=== PATIENT | female | born 1945 | race Caucasian/White ===

== ENCOUNTER → 2016-11-20 | Outpatient (CLI) | payer BC ==
[~2016-11-20] MED LIST: ERGO1CAP41 PO; FERR1TAB23 PO; METH-848 PO; MULT-506 PO; PRT/40 PO; RIVA1TAB4 PO; TPRSR/50 PO
[2016-11-20 09:47] LABS: CALCIUM 8.5 mg/dl (8.5-10.1)
[2016-11-20 10:02] LABS: THYROID STIMULATING HORMONE 1.65 uIu/ml (0.300-4.500)
== END | disposition home or self-care (01) ==
LOC: C.LAB 07:30
PROVIDERS: ATTEND Internal Medicine Endocrinology, Diabetes & Metabolism
DX: E55.9 Vitamin D deficiency, unspecified (principal); E05.90 Thyrotoxicosis, unspecified without thyrotoxic crisis or storm; N25.81 Secondary hyperparathyroidism of renal origin

== ENCOUNTER → 2016-11-27 | Outpatient (CLI) | payer BC ==
--- NOTE | 2016-11-27 10:06 | DIAGNOSTIC IMAGING REPORT ---
THYROID ULTRASOUND HISTORY: E05.90 [id number] Graves [id number] Multiple thyroid COMPARISON: 11/22/2013 FINDINGS: Right lobe: Diffusely multinodular heterogeneous thyroid. Maximum dimension 8.0 cm. Multinodular nodules on the right measuring up to 3.3 cm. This is unchanged. Left lobe: Diffusely enlarged at 7.8 cm. This is only minimally increased in the prior exam. Multinodular appearance with nodules currently measuring no more than 4.4 cm. This is slightly diminished as compared to the prior exam. Multiple calcifications bilaterally in general similar in distribution. Isthmus: No nodules. IMPRESSION: Diffusely heterogeneous multinodular thyroid. No major change compared to the prior study of 2013 Electronically signed by: Ricky Lacy M.D. 11/27/2016 10:04 AM Dictated Date/Time: 11/27/2016 9:56 AM
== END | disposition home or self-care (01) ==
LOC: C.ULTR 09:11
PROVIDERS: ATTEND Internal Medicine Endocrinology, Diabetes & Metabolism
DX: E04.2 Nontoxic multinodular goiter (principal); E05.00 Thyrotoxicosis with diffuse goiter without thyrotoxic crisis or storm

== ENCOUNTER → 2016-12-12 | Outpatient (CLI) | payer BC ==
[2016-12-12 08:26] LABS: BASO % 0.9 %; BASO ABS # 0.03 K/uL (0-0.2); COMPLETE YES; EOS % 2.4 %; HEMATOCRIT 34.1 % (37-47); LYMPH % 35.1 %; LYMPH ABS # 1.17 K/uL (1.2-3.4); MEAN CELL VOLUME 89.7 fL (80-100); MEAN CORPUSCULAR HEMOGLOBIN 28.9 pg (25-34); MEAN CORPUSCULAR HGB CONC 32.3 g/dl (32-36); MONO % 8.7 %; NEUT % 52.9 %; PLATELET COUNT 209 K/uL (130-400); WHITE BLOOD COUNT 3.33 K/uL (4.8-10.8)
[2016-12-12 08:56] LABS: ALT/SGPT 17 U/L (12-78); BLOOD UREA NITROGEN 13 mg/dl (7-18); BUN/CREATININE RATIO 17.3 (10-20); CALCIUM 8.4 mg/dl (8.5-10.1); CARBON DIOXIDE 24 mmol/L (21-32); CHLORIDE 112 mmol/L (98-107); CHOLESTEROL 229 mg/dl (0-200); CREATININE 0.77 mg/dl (0.60-1.20); GLUCOSE 82 mg/dl (70-99); POTASSIUM 4.1 mmol/L (3.5-5.1); SODIUM 146 mmol/L (136-145)
[2016-12-12 09:01] LABS: ALB/GLOB RATIO 0.8 (0.9-2); ALKALINE PHOSPHATASE 75 U/L (45-117); AST/SGOT 16 U/L (15-37); CHOLESTEROL/HDL RATIO 3.5; FERRITIN 6.9 ng/ml (8.0-388.0); HDL CHOLESTEROL 65 mg/dl; LDL CHOLESTEROL CALCULATED 144 mg/dl; TRIGLYCERIDES 98 mg/dl (0-150); VERY LOW DENSITY LIPOPROT CALC 20 mg/dl
== END ==
LOC: C.LAB 07:51
PROVIDERS: ATTEND Nurse Practitioner Family
DX: E78.00 Pure hypercholesterolemia, unspecified (principal); D64.9 Anemia, unspecified

== ENCOUNTER 2016-12-16 13:44 | Emergency (ER) | payer BC ==
[~2016-12-16] VITALS: Ht 167.6 cm; Wt 85.6 kg
[~2016-12-16 13:44] MED LIST changes: -ERGO1CAP41 PO; -FERR1TAB23 PO; -MULT-506 PO; -RIVA1TAB4 PO
[2016-12-16 13:54] VITALS: TEMP 36.7; Ht 167.6 cm; Wt 85.6 kg
[2016-12-16] MEDS ORDERED: FERR1TAB23 PO (14:23)
[2016-12-16] MEDS ORDERED: ERGO1CAP41 PO (14:23)
[2016-12-16] MEDS ORDERED: MULT-506 PO (14:23)
[2016-12-16] MEDS ORDERED: RIVA1TAB4 PO (14:23)
[2016-12-16 14:38] VITALS: O2SAT 97
--- NOTE | 2016-12-16 14:39 | EMERGENCY ROOM VISIT NOTE ---
History First contact with patient: 14:27 Chief Complaint: CARDIAC ASSESSMENT Stated Complaint: PAIN IN LEFT ARM, GENTLE PRESSURE IN CHEST Nursing Triage Summary: pt c/o some pain in her chest and in her left shoulder that goes down her arm with some heaviness and tingling at times. sx have been there since yesterday "my arm does not feel my own History of Present Illness The patient is a 71 year old female who presents to the Emergency Room via private vehicle accompanied by with complaints of "pain in left arm, gentle pressure in chest". The patient states that yesterday she began with chest pain, that came in waves and lasted for a short period of time. She states that the chest pain was in the substernal region, of which she rated the pain as a 2/10. She states it felt like a dull touch of pain. She further describes it as a gentle pressure in the center of her chest. She states this has since subsided, and then shortly thereafter the left arm began to feel like it was "not herself". She states that there is little bit of pain in the left shoulder, and the rest of the arm has a sensation she notes that she did take her blood pressure and the left arm was different than the right by 10-15 points. She states that she is on Xarelto, for history of blood clots in the lungs and legs. She does have a history of hypertension as well. She denies any other weakness, speech troubles. She denies any additional heart troubles. Review of Systems A complete 10-point Review of Systems was discussed with the patient, with pertinent positives and negatives listed in the History of Present Illness. All remaining Review of Systems questions can be considered negative unless otherwise specified. Past Medical/Surgical History Medical Problems: (1) Bilateral pulmonary embolism (2) HTN (hypertension) Family History Patient reports no known family medical history. High blood pressure, cancer Social History Smoking Status: Never Smoker Alcohol Use: none Marital Status: Housing Status: lives with significant other Occupation Status: retired Current/Historical Medications Scheduled Ergocalciferol (Vitamin D 80111 Unit), 2 TAB PO WK Ferrous Sulfate (Iron), 1 TAB PO DAILY Metoprolol Succinate (Metoprolol Succinate ER), 50 MG PO BID Multivitamin (Multivitamin), 1 TAB PO DAILY Rivaroxaban (Xarelto), 20 MG PO DAILY Scheduled PRN Pantoprazole (Pantoprazole Sodium), 40 MG PO DAILY PRN for Acid Reflux Allergies Coded Allergies: No Known Allergies (Unverified , 12/16/16) Physical Exam Vital Signs Date Time Temp Pulse Resp B/P Pulse Ox O2 Delivery O2 Flow Rate FiO2 12/16/16 17:46 67 16 160/94 98 12/16/16 16:30 69 15 155/91 98 Room Air 12/16/16 15:22 78 17 148/84 98 Room Air 12/16/16 14:38 97 Room Air 12/16/16 14:19 76 12/16/16 14:06 100 Room Air 12/16/16 13:54 36.7 75 18 155/78 98 Room Air Physical Exam VITAL SIGNS - Vital signs and nursing notes were reviewed. Patient is afebrile , slightly hypertensive at 155/78, non-tachycardic and is saturating well on room air 98%. GENERAL -71-year-old female appearing her stated age who is in no acute distress. Communicates well with provider and answers questions appropriately. SKIN - Without rashes. No petechial rashes. HEAD - NC/AT. EYES - PERRL with EOMI bilaterally. Sclera anicteric. Palpebral conjunctiva pink and moist with no injection noted. EARS - No deformities of external structures noted on gross examination bilaterally. NOSE - Midline and without cyanosis. No epistaxis or purulent drainage noted. MOUTH/OROPHARYNX - Without perioral cyanosis. Buccal mucosa pink and moist and without leukoplakia. Tongue midline with equal elevation of palate bilaterally. No tonsillar hypertrophy, erythema, or exudates noted. Fair dentition noted. NECK - Neck with FROM. Supple to palpation. LUNGS - Chest wall symmetric without accessory muscle use, intercostals retractions, or central cyanosis. Normal vesicular breath sounds CTA B/L. No wheezes, rales, or rhonchi appreciated. CARDIAC - RRR with S1/S2. No murmur, rubs, or gallops appreciated. ABDOMEN - Abdominal contour without pulsations or visible masses. BS normoactive all four quadrants. No tenderness, palpable masses, hepatosplenomegaly, or ascites noted. EXTREMITIES - No clubbing or peripheral cyanosis. No pretibial edema present. + 5/5 strength noted in UE/LE bilaterally. NEUROLOGIC - Cranial nerves II through XII grossly intact. Sensory intact to light touch throughout. No neurologic deficits appreciated upon exam. PSYCH - A&Ox3 and cooperates fully with examiner. Pt is very pleasant and interacts well with examiner. Medical Decision & Procedures ER Provider Diagnostic Interpretation: CT SCAN OF THE BRAIN WITHOUT IV CONTRAST CLINICAL HISTORY: Left upper extremity paresthesias. Left arm pain. COMPARISON STUDY: No priors. TECHNIQUE: Unenhanced axial CT scan of the brain is performed from the vertex to the skull base. Automated dose control exposure was utilized. CT DOSE: 638.56 mGycm FINDINGS: Brain parenchyma: There is minimal patchy subcortical and periventricular microangiopathic disease. There is no hemorrhage, mass effect, or evidence of acute territorial ischemia by CT criteria. Mooney-white matter is preserved. No extra-axial fluid collection is seen. Ventricles, sulci, cisterns: Normal in configuration. Intracranial vasculature: There is atherosclerotic calcification of the cavernous carotid and vertebral arteries. Calvarium: Unremarkable. Sinuses and mastoids: There is subtotal opacification of the right maxillary antrum. The remaining visualized paranasal sinuses are clear. The mastoid air cells are well pneumatized. Orbits: The bony orbits are grossly intact. IMPRESSION: There is no hemorrhage, mass effect, or evidence of acute territorial ischemia by CT criteria. Electronically signed by: Rudy Howell M.D. 12/16/2016 4:35 PM Dictated Date/Time: 12/16/2016 4:32 PM CHEST ONE VIEW PORTABLE HISTORY: Left-sided chest pain. Left arm pain. COMPARISON: Chest 09/09/2016. FINDINGS: Small linear scarlike density within the left midlung zone, unchanged. The lungs are otherwise clear. No pleural effusions. No pneumothorax. Cardiac silhouette is stable in size. S-shaped scoliosis of the thoracolumbar spine. Stable 5 mm right upper lobe pulmonary nodule. IMPRESSION: No significant change compared to the prior study. No acute process. Electronically signed by: Ronn Marmolejo M.D. 12/16/2016 2:58 PM Dictated Date/Time: 12/16/2016 2:55 PM Laboratory Results 12/16/16 14:16 12/16/16 14:16 Test 12/16/16 14:16 12/16/16 16:39 Red Blood Count 3.78 M/uL (4.2-5.4) Mean Corpuscular Volume 87.3 fL (80-100) Mean Corpuscular Hemoglobin 28.3 pg (25-34) Mean Corpuscular Hemoglobin Concent 32.4 g/dl (32-36) RDW Standard Deviation 42.7 fL (36.4-46.3) RDW Coefficient of Variation 13.4 % (11.5-14.5) Mean Platelet Volume 8.7 fL (7.4-10.4) Prothrombin Time 13.2 SECONDS (9.0-12.0) Prothromb Time International Ratio 1.2 (0.9-1.1) Activated Partial Thromboplast Time 29.5 SECONDS (21.0-31.0) Partial Thromboplastin Ratio 1.1 Anion Gap 8.0 mmol/L (3-11) Est Creatinine Clear Calc Drug Dose 73.1 ml/min Estimated GFR () 87.2 Estimated GFR (Non- 75.2 BUN/Creatinine Ratio 18.1 (10-20) Calcium Level 8.3 mg/dl (8.5-10.1) Total Bilirubin 0.4 mg/dl (0.2-1) Aspartate Amino Transf (AST/SGOT) 15 U/L (15-37) Alanine Aminotransferase (ALT/SGPT) 20 U/L (12-78) Alkaline Phosphatase 74 U/L (45-117) Total Creatine Kinase 97 U/L (26-192) Creatine Kinase MB < 0.5 ng/ml (0.5-3.6) Creatine Kinase MB Ratio (0-3.0) Total Protein 6.7 gm/dl (6.4-8.2) Albumin 3.0 gm/dl (3.4-5.0) Globulin 3.7 gm/dl (2.5-4.0) Albumin/Globulin Ratio 0.8 (0.9-2) Bedside Troponin I 0.000 ng/ml (0-0.045) Medical Decision Patient was seen and evaluated as above. After obtaining a thorough history and physical examination, IV access was established and the above workup was performed. CBC reveals decreased white blood cell count at 4.75, and anemia with hemoglobin of 10.7. INR slightly high at 1.2, the patient is on Xarelto. Chloride sellae high at 110, calcium low at 8.3, troponin negative 2. Albumin low at 3. CT of the head was also ordered as the patient had an odd sensation of the left upper extremity and was on Xarelto. This was negative for acute process. Chest x-ray stable. Patient's EKG reveals normal sinus rhythm, rate of 69 bpm, nonspecific T-wave abnormality, and when compared to EKG of 2015, PVCs are no longer present. Given the negative troponin 2, no acute change on EKG, I do not suspect any immediate heart cause at this time. Because the patient is on Xarelto, I do not feel that a CT scan of the chest will be beneficial. The patient was offered admission, and declined stating she would like to go home. I do believe this is reasonable. She was educated upon today's findings, was educated upon the importance of follow-up, and is to follow-up with her radiologist and her family doctor soon as possible regarding today's visit. She was educated upon worrisome symptoms which to return, had questions answered prior to discharge, and was discharged home in good condition. In the evaluation and treatment of this patient the following differential diagnoses were entertained: AL, PE, costochondritis, GERD, stroke, among others. Impression Primary Impression: Left sided chest pain Additional Impression: Anemia Departure Information Dispostion Home / Self-Care Condition GOOD Referrals Koby Ambrocio III, CRNP (PCP) Patient Instructions [facility] Additional Instructions You were seen in the emergency department today for chest pain. Your heart chemicals here today, troponin were negative 2. Please follow-up with your signal mechanic and family doctor regarding today's visit. You have respectfully declined admission to the hospital. It is recommended you follow-up with your family doctor regarding today's visit as soon as possible. Please return to emergency department with any new/concerning symptoms. Problem Qualifiers
[2016-12-16 14:42] LABS: MEAN CELL VOLUME 87.3 fL (80-100); MEAN CORPUSCULAR HEMOGLOBIN 28.3 pg (25-34); MEAN CORPUSCULAR HGB CONC 32.4 g/dl (32-36); MEAN PLATELET VOLUME 8.7 fL (7.4-10.4); PLATELET COUNT 223 K/uL (130-400); RED BLOOD COUNT 3.78 M/uL (4.2-5.4); WHITE BLOOD COUNT 4.75 K/uL (4.8-10.8)
[2016-12-16 14:48] LABS: ALT/SGPT 20 U/L (12-78); BLOOD UREA NITROGEN 15 mg/dl (7-18); BUN/CREATININE RATIO 18.1 (10-20); CALCIUM 8.3 mg/dl (8.5-10.1); CARBON DIOXIDE 25 mmol/L (21-32); CHLORIDE 110 mmol/L (98-107); GLUCOSE 103 mg/dl (70-99); POTASSIUM 3.6 mmol/L (3.5-5.1); SODIUM 143 mmol/L (136-145)
[2016-12-16 14:50] LABS: INR 1.2 (0.9-1.1); PARTIAL THROMBOPLASTIN RATIO 1.1; PROTHROMBIN TIME (PATIENT) 13.2 SECONDS (9.0-12.0)
[2016-12-16 14:53] LABS: ALB/GLOB RATIO 0.8 (0.9-2); ALKALINE PHOSPHATASE 74 U/L (45-117); AST/SGOT 15 U/L (15-37)
--- NOTE | 2016-12-16 14:59 | DIAGNOSTIC IMAGING REPORT ---
CHEST ONE VIEW PORTABLE HISTORY: Left-sided chest pain. Left arm pain. COMPARISON: Chest 09/09/2016. FINDINGS: Small linear scarlike density within the left midlung zone, unchanged. The lungs are otherwise clear. No pleural effusions. No pneumothorax. Cardiac silhouette is stable in size. S-shaped scoliosis of the thoracolumbar spine. Stable 5 mm right upper lobe pulmonary nodule. IMPRESSION: No significant change compared to the prior study. No acute process. Electronically signed by: Ronn Marmolejo M.D. 12/16/2016 2:58 PM Dictated Date/Time: 12/16/2016 2:55 PM
--- NOTE | 2016-12-16 16:36 | DIAGNOSTIC IMAGING REPORT ---
CT SCAN OF THE BRAIN WITHOUT IV CONTRAST CLINICAL HISTORY: Left upper extremity paresthesias. Left arm pain. COMPARISON STUDY: No priors. TECHNIQUE: Unenhanced axial CT scan of the brain is performed from the vertex to the skull base. Automated dose control exposure was utilized. CT DOSE: 638.56 mGycm FINDINGS: Brain parenchyma: There is minimal patchy subcortical and periventricular microangiopathic disease. There is no hemorrhage, mass effect, or evidence of acute territorial ischemia by CT criteria. Mooney-white matter is preserved. No extra-axial fluid collection is seen. Ventricles, sulci, cisterns: Normal in configuration. Intracranial vasculature: There is atherosclerotic calcification of the cavernous carotid and vertebral arteries. Calvarium: Unremarkable. Sinuses and mastoids: There is subtotal opacification of the right maxillary antrum. The remaining visualized paranasal sinuses are clear. The mastoid air cells are well pneumatized. Orbits: The bony orbits are grossly intact. IMPRESSION: There is no hemorrhage, mass effect, or evidence of acute territorial ischemia by CT criteria. Electronically signed by: Rudy Howell M.D. 12/16/2016 4:35 PM Dictated Date/Time: 12/16/2016 4:32 PM
[2016-12-16 17:46] VITALS: BP 160/94; PULSE 67; O2SAT 98
--- NOTE | 2016-12-16 23:23 | EMERGENCY ROOM VISIT NOTE ---
ED Visit Note First contact with patient: 14:27 I have personally evaluated and examined this patient. I agree with assessment and plan of Peewee Alaniz PA-C. Very pleasant 71 yr old female with chest discomfort and left arm/leg paresthesias. Is already on Xarelto for DVT. No swelling nor neuro deficits of arm. With blood thinner use felt CT necessary which was negative. EKG/Trop negative. Patient requesting to go home though I made clear standard would be to monitor in hospital which she is not willing to do. Willing to stay for second trop. Happy and feeling well while walking out after discharge. Aware RTED at any time if worsening or other concerns.
== END 2016-12-16 17:50 | disposition home or self-care (01) ==
LOC: C.EDB 13:46
DX: R07.9 Chest pain, unspecified (principal); D64.9 Anemia, unspecified; Z86.711 Personal history of pulmonary embolism; I10 Essential (primary) hypertension; Z79.01 Long term (current) use of anticoagulants; Z79.899 Other long term (current) drug therapy

== ENCOUNTER → 2017-01-01 | Outpatient (CLI) | payer BC ==
[~2017-01-01] MED LIST changes: +ERGO500011 PO; +FERR1TAB23 PO; -METH-848 PO; +MULT-506 PO; +PANT40TA2 PO; -PRT/40 PO; +RIVA1TAB4 PO
--- NOTE | 2017-01-01 13:11 | MAMMOGRAPHY REPORT ---
BILATERAL DIGITAL DIAGNOSTIC MAMMOGRAM TOMOSYNTHESIS WITH CAD AND TARGETED RIGHT ULTRASOUND: 01/02/20 17 CLINICAL HISTORY: The patient reports diffuse bilateral breast pain for a few weeks, which is nearly completely resolved after discontinuing drinking caffeine over the last week. She denies any palpa ble lumps. She does report two "bumps "on the right areola which she did not notice before. She de nies any nipple/areolar erythema or nipple discharge. TECHNIQUE: Breast tomosynthesis in addition to standard 2D mammography was performed. Current study was also evaluated with a Computer Aided Detection (CAD) system. Bilateral CC and MLO 2-D and bassem synthesis images were obtained. COMPARISON: Comparison is made to exams dated: 03/26/2016 mammogram, 03/21/2015 mammogram, 03/20/2014 mammogram, 03/13/2013 mammogram, 03/08/2012 mammogram, and 12/22/2010 mammogram - [facility]. BREAST COMPOSITION: There are scattered areas of fibroglandular density in both breasts. FINDINGS: There are no suspicious masses, calcifications, or areas of architectural distortion seen in either breast mammographically. There has been no significant interval change compared to prior exams. An asymmetry seen within the right medial breast on the CC view is similar compared to prior exams including the 2009 exam, and has the appearance of normal overlapping fibroglandular tissue. Scattered bilateral benign-appearing calcifications are not significantly changed. Targeted ultrasound was performed of the area of the 2 bumps noted on the right areola pointed out b y the patient, in the right 9:00 and 5:00 positions of the areola. Sonographically normal tissue is seen without evidence of a mass or other suspicious sonographic abnormality. IMPRESSION: ACR BI-RADS CATEGORY 2: BENIGN, TARGETED ULTRASOUND ACR BI-RADS CATEGORY 2: BENIGN There is no mammographic or targeted sonographic evidence of malignancy. Recommend clinical follow- up for resolving bilateral breast pain and right areolar bumps. Also recommend routine bilateral sc reening mammograms in one year. The patient has been verbally notified of the results. Approximately 10% of breast cancers are not detected with mammography. A negative mammographic repor t should not delay biopsy if a clinically suggestive mass is present. Joselin Odonnell M.D. ah/:01/01/2017 08:51:21 Community Service Worker: Kathryn JAMA(R)(M), [facility] letter sent: Normal /2 BI-RADS Code: ACR BI-RADS Category 2: Benign Ultrasound BI-RADS: ACR BI-RADS Category 2: Benign
== END | disposition home or self-care (01) ==
LOC: C.MAMM 08:17
PROVIDERS: ATTEND Physician Assistant
DX: N64.4 Mastodynia (principal); N64.89 Other specified disorders of breast

== ENCOUNTER → 2017-01-30 | Outpatient (CLI) | payer BC ==
[2017-01-30 09:21] LABS: HEMATOCRIT 38.8 % (37-47); MEAN CELL VOLUME 91.3 fL (80-100); MEAN CORPUSCULAR HEMOGLOBIN 29.2 pg (25-34); MEAN PLATELET VOLUME 9.1 fL (7.4-10.4); PLATELET COUNT 190 K/uL (130-400); RED BLOOD COUNT 4.25 M/uL (4.2-5.4); WHITE BLOOD COUNT 3.22 K/uL (4.8-10.8)
[2017-01-30 09:46] LABS: CALCIUM 8.5 mg/dl (8.5-10.1)
[2017-01-30 10:02] LABS: FERRITIN 19.4 ng/ml (8.0-388.0); THYROID STIMULATING HORMONE 0.343 uIu/ml (0.300-4.500)
== END | disposition home or self-care (01) ==
LOC: C.LAB 08:39
PROVIDERS: ATTEND Internal Medicine Endocrinology, Diabetes & Metabolism
DX: E05.00 Thyrotoxicosis with diffuse goiter without thyrotoxic crisis or storm (principal); E55.9 Vitamin D deficiency, unspecified; E78.00 Pure hypercholesterolemia, unspecified

== ENCOUNTER → 2017-02-23 | Outpatient (CLI) | payer BC | END | disposition home or self-care (01) | LOC: C.LAB 07:37 | PROVIDERS: ATTEND Physician Assistant Medical | DX: I10 Essential (primary) hypertension (principal); N39.498 Other specified urinary incontinence; N31.9 Neuromuscular dysfunction of bladder, unspecified; I73.9 Peripheral vascular disease, unspecified ==

== ENCOUNTER → 2017-03-13 | Outpatient (CLI) | payer BC ==
[2017-03-13 10:21] LABS: THYROID STIMULATING HORMONE 0.257 uIu/ml (0.300-4.500)
== END | disposition home or self-care (01) ==
LOC: C.LAB 08:55
PROVIDERS: ATTEND Internal Medicine Endocrinology, Diabetes & Metabolism
DX: E55.9 Vitamin D deficiency, unspecified (principal); M81.0 Age-related osteoporosis without current pathological fracture; N25.81 Secondary hyperparathyroidism of renal origin; E05.00 Thyrotoxicosis with diffuse goiter without thyrotoxic crisis or storm

== ENCOUNTER → 2017-04-27 | Outpatient (CLI) | payer BC ==
[~2017-04-27] MED LIST changes: +ERGO1CAP41 PO; -ERGO500011 PO; -PANT40TA2 PO; +PRT/40 PO
[2017-04-27 10:24] LABS: MANUAL MICROSCOPIC REQUIRED? NO; REVIEW REQ? NO; URINE APPEARANCE CLEAR (CLEAR); URINE BILIRUBIN NEG (NEG); URINE COLOR DK YELLOW; URINE NITRITE POS (NEG); URINE PH 7.5 (4.5-7.5); URINE SPECIFIC GRAVITY 1.015 (1.000-1.030); UROBILINOGEN NEG (NEG)
== END | disposition home or self-care (01) ==
LOC: C.LAB 09:15
PROVIDERS: ATTEND Nurse Practitioner Family
DX: E55.9 Vitamin D deficiency, unspecified (principal); M81.0 Age-related osteoporosis without current pathological fracture; N25.81 Secondary hyperparathyroidism of renal origin; E05.00 Thyrotoxicosis with diffuse goiter without thyrotoxic crisis or storm; N39.0 Urinary tract infection, site not specified

== ENCOUNTER → 2017-05-06 | Outpatient (CLI) | payer BC | END | disposition home or self-care (01) | LOC: C.LABSPEC 16:44 | PROVIDERS: ATTEND Family Medicine | DX: N39.0 Urinary tract infection, site not specified (principal) ==

== ENCOUNTER → 2017-06-09 | Outpatient (CLI) | payer BC ==
[2017-06-09 10:02] LABS: CALCIUM 8.4 mg/dl (8.5-10.1)
[2017-06-09 10:19] LABS: THYROID STIMULATING HORMONE 0.466 uIu/ml (0.300-4.500)
== END | disposition home or self-care (01) ==
LOC: C.LAB 08:52
PROVIDERS: ATTEND Internal Medicine Endocrinology, Diabetes & Metabolism
DX: E55.9 Vitamin D deficiency, unspecified (principal); E05.90 Thyrotoxicosis, unspecified without thyrotoxic crisis or storm; N25.81 Secondary hyperparathyroidism of renal origin

== ENCOUNTER → 2017-06-10 | Outpatient (CLI) | payer BC ==
[2017-06-10 09:40] LABS: BASO % 0.6 %; BASO ABS # 0.02 K/uL (0-0.2); COMPLETE YES; EOS % 2.5 %; HEMATOCRIT 36.5 % (37-47); IG% 0.3 %; LYMPH ABS # 1.14 K/uL (1.2-3.4); MEAN CELL VOLUME 93.4 fL (80-100); MEAN CORPUSCULAR HEMOGLOBIN 30.4 pg (25-34); MEAN CORPUSCULAR HGB CONC 32.6 g/dl (32-36); MEAN PLATELET VOLUME 9.1 fL (7.4-10.4); MONO % 8.7 %; NEUT % 55.9 %; PLATELET COUNT 194 K/uL (130-400); RED BLOOD COUNT 3.91 M/uL (4.2-5.4); WHITE BLOOD COUNT 3.56 K/uL (4.8-10.8)
== END | disposition home or self-care (01) ==
LOC: C.LAB 08:49
PROVIDERS: ATTEND Nurse Practitioner Family
DX: D64.9 Anemia, unspecified (principal); R41.3 Other amnesia

== ENCOUNTER → 2017-08-18 | Outpatient (CLI) | payer BC ==
[~2017-08-18] MED LIST changes: -ERGO1CAP41 PO; +ERGO500011 PO; +PANT40TA2 PO; -PRT/40 PO
[2017-08-18 12:46] LABS: THYROID STIMULATING HORMONE 0.754 uIu/ml (0.300-4.500)
== END | disposition home or self-care (01) ==
LOC: C.LAB 11:10
PROVIDERS: ATTEND Internal Medicine Endocrinology, Diabetes & Metabolism
DX: E05.90 Thyrotoxicosis, unspecified without thyrotoxic crisis or storm (principal)

== ENCOUNTER → 2017-10-20 | Outpatient (CLI) | payer BC ==
[2017-10-20 12:36] LABS: CALCIUM 8.6 mg/dl (8.5-10.1)
== END | disposition home or self-care (01) ==
LOC: C.LAB1850 11:10
PROVIDERS: ATTEND Internal Medicine Endocrinology, Diabetes & Metabolism
DX: E55.9 Vitamin D deficiency, unspecified (principal); M81.0 Age-related osteoporosis without current pathological fracture; E04.9 Nontoxic goiter, unspecified; E05.00 Thyrotoxicosis with diffuse goiter without thyrotoxic crisis or storm; R61 Generalized hyperhidrosis

== ENCOUNTER → 2017-11-19 | Outpatient (CLI) | payer BC ==
[~2017-11-19] MED LIST changes: +CALC-393 PO; +ERGO500037 PO; +METH-589 PO; +OMEP20CA9 PO
== END | disposition home or self-care (01) ==
LOC: C.LAB 10:26
PROVIDERS: ATTEND Internal Medicine Endocrinology, Diabetes & Metabolism
DX: E05.00 Thyrotoxicosis with diffuse goiter without thyrotoxic crisis or storm (principal); E05.90 Thyrotoxicosis, unspecified without thyrotoxic crisis or storm; E55.9 Vitamin D deficiency, unspecified

== ENCOUNTER → 2017-11-30 | Day surgery (SDC) | payer BC ==
[2017-11-24 10:12] VITALS: Ht 167.6 cm; Wt 81.8 kg
[~2017-11-30] VITALS: Ht 167.6 cm; Wt 81.8 kg
[~2017-11-30] MED LIST changes: -ERGO500011 PO; -FERR1TAB23 PO; +LIDOCAINE HCL 2% 2 ML VIAL (20MG/ML) ONE; -PANT40TA2 PO; +PROPOFOL IV EMULSION 10 MG/ML 20 ML VIAL IV ONE; +SODIUM CHLORIDE 0.9% 500ML 500 ML IV ONE
--- NOTE | 2017-11-30 09:11 | Endo History and Physical ---
History & Physical Date of Service: Nov 30, 2017. Chief Complaint: Screening Referring Physician: Koby Ambrocio History of Present Illness 72 yo CF who presents for screening colonoscopy. Past Medical History Osteoporosis, Hypertension, Thyroid Disease Past Surgical History Hx Cardiac Surgery: No Hx Internal Defibrillator: No Hx Pacemaker: No Hx Abdominal Surgery: No Hx of Implantable Prosthesis: No Hx Post-Op Nausea and Vomiting: No Hx Cancer Surgery: No Hx Thoracic Surgery: No Hx Orthopedic: Yes (RT/LEFT CTR) Hx Urinary Tract Surgery: No Family History None Social History Smoking Status: Never Smoker Hx Substance Use: No Hx Alcohol Use: Yes (OCCASIONALLY) Allergies Coded Allergies: No Known Allergies (Unverified , 11/30/17) Current Medications Reported Home Medications Medications Dose Route/Sig Max Daily Dose Days Date Category Prilosec (Omeprazole) 20 Mg Cap 20 Mg PO DAILY PRN 11/24/17 Reported Multivitamin (Multivitamins) Tab 1 Tab PO DAILY 11/24/17 Reported Vitamin D 12867 Unit (Ergocalciferol) 50,000 Unit Cap 50,000 Unit PO 3XWK 11/24/17 Reported Calcium (Calcium Carbonate) 600 Mg Tab 1 Tab PO BID 11/24/17 Reported Xarelto (Rivaroxaban) 20 Mg Tab 20 Mg PO HS 11/24/17 Reported Methimazole (Methimazole) 5 Mg Tab 1.5 Tab PO QAM 11/24/17 Reported Metoprolol Succinate ER (Metoprolol Succinate) 50 Mg Tabcr 50 Mg PO BID 05/03/16 Reported Vital Signs Weight (Kilograms): 81.82 Height (Feet): 5 Height (Inches): 6 Physical Exam General Appearance: WD/WN, no apparent distress Respiratory/Chest: Auscultation: breath sounds normal Cardiovascular: Heart Auscultation: RRR Abdomen: Bowel Sounds: normal Inspection & Palpation: soft, non-distended, no tenderness, guarding & rebound Assessment and Plan Assessment: 72 yo CF who presents for screening colonoscopy. Plan: Proceed with colonoscopy.
[2017-11-30 09:17] VITALS: TEMP 36.8
--- NOTE | 2017-11-30 09:49 | Discharge Instructions ---
Endoscopy Patient Instructions Date / Procedure(s) Performed Nov 30, 2017. Colonoscopy Allergy Information Coded Allergies: No Known Allergies (Unverified , 11/30/17) Discharge Date / Findings Nov 30, 2017. Polyp in cecum Internal and External hemorrhoids Medication Instructions Stopped Medication(s): XARELTO 20 MG LD 11/27/17 2100 1) Start Metamucil 1 tablespoonful in 8 oz glass of water daily. 2) OK to resume all medications today as prescribed Reported Home Medications Medications Dose Route/Sig Max Daily Dose Days Date Category Prilosec (Omeprazole) 20 Mg Cap 20 Mg PO DAILY PRN 11/24/17 Reported Multivitamin (Multivitamins) Tab 1 Tab PO DAILY 11/24/17 Reported Vitamin D 89319 Unit (Ergocalciferol) 50,000 Unit Cap 50,000 Unit PO 3XWK 11/24/17 Reported Calcium (Calcium Carbonate) 600 Mg Tab 1 Tab PO BID 11/24/17 Reported Xarelto (Rivaroxaban) 20 Mg Tab 20 Mg PO HS 11/24/17 Reported Methimazole (Methimazole) 5 Mg Tab 1.5 Tab PO QAM 11/24/17 Reported Metoprolol Succinate ER (Metoprolol Succinate) 50 Mg Tabcr 50 Mg PO BID 05/03/16 Reported Provider Instructions Activity Restrictions - No exercising or heavy lifting for 24 hours. - Do not drink alcohol the day of the procedure. - Do not drive a car or operate machinery until the day after the procedure. - Do not make any important decisions or sign important papers in 24 hours after the procedure. Following Day: - Return to full activity which may include returning to work/school. Diet Start your diet with liquids and light foods (jello, soup, juice, toast). Then eat your usual diet if not nauseated. Treatment For Common After Affects For mild abdominal pain, bloating, or excessive gas: - Rest - Eat lightly - Lie on right side Follow-Up Information Follow-up with EVIE Iraheta as scheduled Anesthesia Information What You Should Know You have had a procedure that required some medicine to reduce anxiety and discomfort. This treatment is called moderate sedation. After receiving the treatment, you may be sleepy, but you will be able to breathe on your own. The effects of the treatment may last for several hours. Follow these instructions along with Activity/Diet recommendations noted above: * Do NOT do anything where dizziness or clumsiness would be dangerous. * Rest quietly at home today, then you can be up and about tomorrow. * Have a responsible person stay with you the rest of today. * You may have had an I.V. today. If so, you may take the dressing off later today. Recommendations Call your doctor if: * Trouble breathing * Continuous vomiting for more than 24 hours * Temperature above 101 degrees * Severe abdominal pain or bloating * Pain not relieved by pain medicine ordered * There is increased drainage or redness from any incision * A large amount of rectal bleeding greater than 2-3 tablespoons. (If you had a polyp/s removed or have hemorrhoids, a small amount of blood - from the rectum is to be expected.) * You have any unanswered questions or concerns. IN THE EVENT OF A SERIOUS EMERGENCY, GO TO THE NEAREST EMERGENCY ROOM Your discharge instructions were prepared by provider Sixto Loyola. Patient Instructions Signature Page Joselin Hernandez Patient (or Guardian) Signature/Date: I have read and understand the instructions given to me by my caregivers. Caregiver/RN/Doctor Signature/Date: The above-named patient and/or guardian has received patient instructions on this date. + Original Patient Signature Page (only) stays with chart. Please make copy for patient.
--- NOTE | 2017-11-30 09:54 | GI REPORT ---
Procedure Date: 11/30/2017 9:11 AM Procedure: Colonoscopy Indications: Screening for colorectal malignant neoplasm Medicines: Monitored Anesthesia Care Complications: No immediate complications. Estimated Blood Loss: Estimated blood loss: none. Procedure: Pre-Anesthesia Assessment: - Prior to the procedure, a History and Physical was performed, and patient medications and allergies were reviewed. The patient's tolerance of previous anesthesia was also reviewed. The risks and benefits of the procedure and the sedation options and risks were discussed with the patient. All questions were answered, and informed consent was obtained. Prior Anticoagulants: The patient has taken Xarelto (rivaroxaban), last dose was 3 days prior to procedure. ASA Grade Assessment: II - A patient with mild systemic disease. After reviewing the risks and benefits, the patient was deemed in satisfactory condition to undergo the procedure. After I obtained informed consent, the scope was passed under direct vision. Throughout the procedure, the patient's blood pressure, pulse, and oxygen saturations were monitored continuously. The Scope was introduced through the anus and advanced to the terminal ileum. The colonoscopy was performed without difficulty. The patient tolerated the procedure well. The quality of the bowel preparation was good. The terminal ileum, ileocecal valve, appendiceal orifice, and rectum were photographed. Findings: Hemorrhoids were found on perianal exam. A 3 mm polyp was found in the cecum. The polyp was sessile. The polyp was removed with a cold biopsy forceps. Resection and retrieval were complete. Multiple small-mouthed diverticula were found in the sigmoid colon. Non-bleeding internal hemorrhoids were found during retroflexion. The hemorrhoids were small. Impression: - Hemorrhoids found on perianal exam. - One 3 mm polyp in the cecum, removed with a cold biopsy forceps. Resected and retrieved. - Diverticulosis in the sigmoid colon. - Non-bleeding internal hemorrhoids. Recommendation: - Resume previous diet. - Continue present medications. - Repeat colonoscopy for surveillance based on pathology results. - Return to primary care physician as previously scheduled. Sixto Loyola DO 11/30/2017 9:54:33 AM This report has been signed electronically. Note Initiated On: 11/30/2017 9:11 AM I attest to the content of the Intraoperative Record and orders documented therein, exceptions below
[2017-11-30 10:22] VITALS: BP 133/79; PULSE 69; O2SAT 100
--- NOTE | 2017-11-30 11:02 | Anesthesiology Progress Note ---
Anesthesia Post Op Note Date & Time Nov 30, 2017 at 11:02 Vital Signs Pain Intensity: 0 Vital Signs Past 12 Hours Date Time Temp Pulse Resp B/P (MAP) Pulse Ox O2 Delivery O2 Flow Rate FiO2 11/30/17 10:22 69 20 133/79 (97) 100 Room Air 11/30/17 10:07 74 18 101/77 (85) 98 Room Air 11/30/17 09:52 76 18 95/56 (69) 97 Room Air 11/30/17 09:17 36.8 77 18 147/88 (107) 97 Room Air Notes Mental Status: alert / awake / arousable, participated in evaluation Pt Amnestic to Procedure: Yes Nausea / Vomiting: adequately controlled Pain: adequately controlled Airway Patency, RR, SpO2: stable & adequate BP & HR: stable & adequate Hydration State: stable & adequate Anesthetic Complications: no major complications apparent
== END | disposition home or self-care (01) ==
LOC: C.GI 08:31
PROVIDERS: ATTEND Internal Medicine
DX: Z12.11 Encounter for screening for malignant neoplasm of colon (principal); D12.0 Benign neoplasm of cecum; K57.30 Diverticulosis of large intestine without perforation or abscess without bleeding; K64.8 Other hemorrhoids; K64.4 Residual hemorrhoidal skin tags; I10 Essential (primary) hypertension; E07.9 Disorder of thyroid, unspecified; M81.0 Age-related osteoporosis without current pathological fracture; K21.9 Gastro-esophageal reflux disease without esophagitis; Z86.711 Personal history of pulmonary embolism; Z79.01 Long term (current) use of anticoagulants

== ENCOUNTER → 2018-01-03 | Outpatient (CLI) | payer BC ==
[~2018-01-03] MED LIST changes: -LIDOCAINE HCL 2% 2 ML VIAL (20MG/ML) ONE; -PROPOFOL IV EMULSION 10 MG/ML 20 ML VIAL IV ONE; -SODIUM CHLORIDE 0.9% 500ML 500 ML IV ONE
== END | disposition home or self-care (01) ==
LOC: C.MAMM 14:39
PROVIDERS: ATTEND Nurse Practitioner Family
DX: M81.0 Age-related osteoporosis without current pathological fracture (principal); M85.851 Other specified disorders of bone density and structure, right thigh; M85.852 Other specified disorders of bone density and structure, left thigh

== ENCOUNTER → 2018-01-06 | Outpatient (CLI) | payer BC ==
--- NOTE | 2018-01-07 15:38 | MAMMOGRAPHY REPORT ---
BILATERAL DIGITAL SCREENING MAMMOGRAM TOMOSYNTHESIS WITH CAD: 01/06/2018 CLINICAL HISTORY: Routine screening. TECHNIQUE: Breast tomosynthesis in addition to standard 2D mammography was performed. Current study was also evaluated with a Computer Aided Detection (CAD) system. COMPARISON: Comparison is made to exams dated: 01/01/2017 mammogram, 03/26/2016 mammogram, 03/21/2015 m ammogram, 03/20/2014 mammogram, 03/13/2013 mammogram, and 03/04/2012 mammogram - [facility] nter. BREAST COMPOSITION: There are scattered areas of fibroglandular density in both breasts. FINDINGS: No suspicious masses, calcifications, or areas of architectural distortion are noted in ei ther breast. There has been no significant interval change compared to prior exams. Scattered bilater al benign-appearing calcifications are not significantly changed. IMPRESSION: ACR BI-RADS CATEGORY 2: BENIGN There is no mammographic evidence of malignancy. A 1 year screening mammogram is recommended. The pa tient will receive written notification of the results. Approximately 10% of breast cancers are not detected with mammography. A negative mammographic report should not delay biopsy if a clinically suggestive mass is present. Joselin Odonnell M.D. /:01/06/2018 15:40:40 Animal Tech: Cecy JAMA(Ally)(M), [facility] letter sent: Normal 1/2 BI-RADS Code: ACR BI-RADS Category 2: Benign
== END | disposition home or self-care (01) ==
LOC: C.MAMM 14:39
PROVIDERS: ATTEND Obstetrics & Gynecology
DX: Z12.31 Encounter for screening mammogram for malignant neoplasm of breast (principal)

== ENCOUNTER → 2018-02-04 | Outpatient (CLI) | payer BC ==
[2018-02-04 10:11] LABS: ALBUMIN 3.1 gm/dl (3.4-5.0); ALT/SGPT 15 U/L (12-78); AST/SGOT 13 U/L (15-37); BLOOD UREA NITROGEN 12 mg/dl (7-18); CALCIUM 8.4 mg/dl (8.5-10.1); CARBON DIOXIDE 26 mmol/L (21-32); CREATININE 0.88 mg/dl (0.60-1.20); GLUCOSE 88 mg/dl (70-99); POTASSIUM 3.6 mmol/L (3.5-5.1); SODIUM 139 mmol/L (136-145)
[2018-02-04 10:20] LABS: ALKALINE PHOSPHATASE 69 U/L (45-117); CHOLESTEROL 243 mg/dl (0-200); LDL CHOLESTEROL CALCULATED 152 mg/dl; TOTAL PROTEIN 6.9 gm/dl (6.4-8.2)
== END | disposition home or self-care (01) ==
LOC: C.LAB1850 08:37
PROVIDERS: ATTEND Internal Medicine Rheumatology
DX: E05.90 Thyrotoxicosis, unspecified without thyrotoxic crisis or storm (principal); E05.00 Thyrotoxicosis with diffuse goiter without thyrotoxic crisis or storm; E04.2 Nontoxic multinodular goiter; E04.9 Nontoxic goiter, unspecified; Z00.00 Encounter for general adult medical examination without abnormal findings; I10 Essential (primary) hypertension; E78.00 Pure hypercholesterolemia, unspecified; E61.8 Deficiency of other specified nutrient elements

== ENCOUNTER → 2018-05-21 | Outpatient (CLI) | payer BC ==
[~2018-05-21] MED LIST changes: +DOCU-94 PO; +LPR50X PO; +MAGN400T6 PO; +METH-589; -METH-589 PO; +MISCCAP80 PO; -OMEP20CA9 PO; +PANT40TA PO; +SENN-61 PO
== END | disposition home or self-care (01) ==
LOC: C.LAB 08:01
PROVIDERS: ATTEND Internal Medicine Endocrinology, Diabetes & Metabolism
DX: E05.90 Thyrotoxicosis, unspecified without thyrotoxic crisis or storm (principal)

== ENCOUNTER 2018-05-25 17:44 | Inpatient (IN) | payer BC, OTHER ==
[~2018-05-25] VITALS: Ht 172.7 cm; Wt 86.0 kg
[2018-05-25] VITALS (7 sets, daily range): BP systolic 131–150; BP diastolic 74–80; PULSE 70–89; TEMP 36.4–36.9; O2SAT 98–100; Ht 172.7 cm; Wt 86.0 kg
[~2018-05-25 17:44] MED LIST changes: -DOCU-94 PO; -TPRSR/50 PO
[2018-05-25] MEDS ORDERED: SODIUM CHLORIDE 0.9% 1000ML 1,000 ML IV STA (17:59)
[2018-05-25] MEDS ORDERED: TPRSR/50 PO ×2 (18:02)
[2018-05-25] MEDS ORDERED: OPTIRAY 320 IV PRN (18:15)
--- NOTE | 2018-05-25 18:15 | DIAGNOSTIC IMAGING REPORT ---
CHEST ONE VIEW PORTABLE CLINICAL HISTORY: 73 years-old Female presenting with EVALUATE GI BLEED. TECHNIQUE: Portable upright AP view of the chest was obtained. COMPARISON: 12/16/2016. FINDINGS: Cardiomediastinal silhouette unchanged. Prominence of pulmonary vasculature unchanged. No focal opacity. No large effusion or pneumothorax. Scoliotic curvature of the spine. IMPRESSION: 1. Mild volume overload suggested. No other convincing evidence of acute cardiopulmonary disease. Electronically signed by: Adelso Sepulveda M.D. 05/25/2018 6:14 PM Dictated Date/Time: 05/25/2018 6:11 PM
[2018-05-25 18:30] LABS: HEMATOCRIT 20.1 % (37-47); HEMOGLOBIN 5.8 g/dL (12.0-16.0); MEAN CELL VOLUME 73.6 fL (80-100); MEAN CORPUSCULAR HEMOGLOBIN 21.2 pg (25-34); MEAN CORPUSCULAR HGB CONC 28.9 g/dl (32-36); MEAN PLATELET VOLUME 7.9 fL (7.4-10.4); PLATELET COUNT 276 K/uL (130-400); RED CELL DISTRIBUTION WIDTH CV 16.9 % (11.5-14.5); RED CELL DISTRIBUTION WIDTH SD 45.8 fL (36.4-46.3); WHITE BLOOD COUNT 4.07 K/uL (4.8-10.8)
[2018-05-25 18:44] LABS: ALBUMIN 3.1 gm/dl (3.4-5.0); ALKALINE PHOSPHATASE 73 U/L (45-117); ALT/SGPT 18 U/L (12-78); AST/SGOT 14 U/L (15-37); BLOOD UREA NITROGEN 16 mg/dl (7-18); CALCIUM 8.3 mg/dl (8.5-10.1); CARBON DIOXIDE 23 mmol/L (21-32); CREATININE 0.96 mg/dl (0.60-1.20); GLUCOSE 104 mg/dl (70-99); LIPASE 183 U/L (73-393); POTASSIUM 4.1 mmol/L (3.5-5.1); SODIUM 142 mmol/L (136-145); TOTAL PROTEIN 6.9 gm/dl (6.4-8.2)
[2018-05-25 18:47] LABS: BASO % 0.7 %; BASO ABS # 0.03 K/uL (0-0.2); EOS % 2.2 %; EOS ABS # 0.09 K/uL (0-0.5); IG# 0.01 K/uL (0.00-0.02); LYMPH % 32.7 %; LYMPH ABS # 1.33 K/uL (1.2-3.4); MONO % 8.1 %; MONO ABS # 0.33 K/uL (0.11-0.59); NEUT % 56.1 %; NEUT ABS # 2.28 K/uL (1.4-6.5)
[2018-05-25 18:51] LABS: PTT PATIENT 23.4 SECONDS (21.0-31.0)
--- NOTE | 2018-05-25 18:51 | DIAGNOSTIC IMAGING REPORT ---
CT SCAN OF THE ABDOMEN AND PELVIS WITH IV CONTRAST CLINICAL HISTORY: Generalized abdominal pain. GI bleeding. Anemia. COMPARISON STUDY: Abdominal CT dated 05/28/2012. TECHNIQUE: Following the IV administration of 116 cc of Optiray 320, CT scan of the abdomen and pelvis is performed from the lung bases to the proximal femora. Images are reviewed in the axial, sagittal, and coronal planes. IV contrast was administered without complication. A dose lowering technique was utilized adhering to the principles of ALARA. CT DOSE: 494.94 mGy.cm FINDINGS: Lung bases: The heart is enlarged and without pericardial effusion. There is no airspace consolidation or pleural effusion. Dependent scarring/atelectasis is observed. There is a 6 mm pulmonary nodule at the left lung base seen on image #41. This is been present dating back to 2011. Liver: The contrast-enhanced liver is normal in size, contour, and attenuation. There is no intrahepatic biliary ductal dilatation. The hepatic veins and portal veins are patent. Gallbladder: Contracted. Spleen: Normal in size and attenuation. Pancreas: Unremarkable. Adrenal glands: Unremarkable. Kidneys: The contrast enhanced kidneys are normal in size and without hydronephrosis. The kidneys enhance symmetrically. Abdominal vasculature: The abdominal aorta is normal in course and caliber noting mild to moderate atherosclerotic calcification. Bowel: There is mild to moderate colonic diverticulosis without CT evidence of acute diverticulitis. No bowel obstruction is seen. Colonic fecal retention is observed. The appendix is well-visualized and normal. Peritoneum/retroperitoneum: There is no retroperitoneal hemorrhage. There is no intraperitoneal free air or abdominal ascites. There is a fat-containing umbilical hernia. Lymphadenopathy: None. Pelvic viscera: The bladder, uterus, and adnexa are normal as visualized. Numerous phleboliths are observed in the pelvis. Skeletal structures: The skeletal structures are osteopenic. There is advanced lumbosacral spondylosis and scoliosis. No lytic or blastic lesions are seen. IMPRESSION: 1. There are no acute infectious or inflammatory findings in the abdomen or pelvis. 2. Cardiomegaly. 3. Mild to moderate colonic diverticulosis without CT evidence of acute diverticulitis. 4. Additional findings as above. Electronically signed by: Rudy Howell M.D. 05/25/2018 6:49 PM Dictated Date/Time: 05/25/2018 6:41 PM
[2018-05-25] MEDS ORDERED: ONDANSETRON INJ 2 MG/ML 2 ML VIAL IV PRN (20:15)
[2018-05-25 20:28] LABS: HEMATOCRIT 18.4 % (37-47); HEMOGLOBIN 5.2 g/dL (12.0-16.0)
--- NOTE | 2018-05-25 20:35 | History and Physical ---
History & Physical Date & Time of Service: May 25, 2018 at 20:35 Chief Complaint: Referred For Abnormal Labs Primary Care Physician: Koby Ambrocio III, CRNP History of Present Illness Source: patient, spouse, hospital records The patient is a 73-year-old female who was referred to the emergency department due to a low hemoglobin and outpatient laboratories done earlier in the day. She has a known history of bleeding hemorrhoids, and notes that her bowel movements have been bloody almost every time for the past several months. She denies any abdominal pain but has some generalized pressure. She relates to pressure the taking Metamucil which she was advised to take recently due to difficulty with bowel movements. She reports progressive shortness of breath and dyspnea on exertion over the past several weeks. She presently takes Xarelto for history of pulmonary emboli from 2014. She had a colonoscopy performed 11/30/17 which showed a 3 mm polyp, sigmoid diverticuli and nonbleeding internal hemorrhoids. She had an EGD performed 03/25/18 which showed mild varices and a Schatzki ring. Past Medical/Surgical History Medical Problems: (1) Anemia (2) Bilateral pulmonary embolism (3) HTN (hypertension) (4) Left sided chest pain (5) Lower GI bleed (6) Symptomatic anemia (7) Symptomatic PVCs Family History Patient reports no known family medical history. Social History Smoking Status: Never Smoker Smokeless Tobacco Use: No Alcohol Use: none Drug Use: none Marital Status: Housing status: lives with family Occupational Status: retired Immunizations History of Influenza Vaccine: Unknown History of Tetanus Vaccine?: Unknown History of Pneumococcal: Unknown History of Hepatitis B Vaccine: Unknown Allergies Coded Allergies: No Known Allergies (Unverified , 03/25/18) Home Medications Scheduled Calcium Carbonate (Calcium), 200 MG PO BID Ergocalciferol (Vitamin D 93614 Unit), 50,000 UNITS PO 3XWK Magnesium Oxide (Mag-Ox), 200 MG PO QAM Methimazole (Methimazole ), 7.5 MG QAM Metoprolol Succinate (Metoprolol Succinate ER), 50 MG PO BID Multivitamin (Multivitamin), 1 TAB PO QAM Pantoprazole (Protonix), 40 MG PO QAM Probiotic Product (Probiotic), 1 TAB PO QAM Rivaroxaban (Xarelto), 1 TAB PO HS Scheduled PRN Senna (Senokot), 1 TAB PO for CONSTIPATION Review of Systems The patient denies chest pain, palpitations, cough, lower extremity swelling, sore throat, fevers, chills, sweats, weight change, nausea, vomiting, diarrhea , constipation, abdominal pain, pelvic pain, blood in urine, dysuria, urinary frequency or urgency, lightheadedness, dizziness, headache, memory loss, loss of consciousness, rash, abnormal bruising or bleeding, imbalance, focal or generalized weakness, numbness or tingling in arms or legs, generalized arthralgias or myalgias, back or neck pain, or night sweats. The review of systems is otherwise negative other than for that already noted above, and at least 10 systems have been reviewed. Physical Exam Vital Signs Date Time Temp Pulse Resp B/P (MAP) Pulse Ox O2 Delivery O2 Flow Rate FiO2 05/25/18 19:11 99 Room Air 05/25/18 18:07 99 Room Air 05/25/18 17:49 37.1 91 20 118/73 99 Room Air The patient is awake, alert and oriented 3, well developed and well nourished, normocephalic and atraumatic, lying in bed and in no acute distress. HEENT--PERRL, EOMI, mucous membranes and oropharynx normal. Neck--supple. No JVD. No bruits. Thyroid normal, trachea midline, no adenopathy. Heart--normal S1 and S2. No murmurs, rubs or gallops. Lungs--clear bilaterally, no respiratory distress, no accessory muscle use. Abdomen--normal bowel sounds and soft. Nontender. Nondistended, no hernias or masses, no organomegaly. Extremities--no cyanosis or clubbing. No edema. There are good distal pulses b/ l. Dermatologic--normal skin turgor, normal color, no abnormal lymph nodes, no rash. Neurologic--cranial nerves II through XII grossly intact. Rheumatologic--normal range of motion. Psychiatric--normal affect. Diagnostics Laboratory Results Results Past 24 Hours Test 05/25/18 18:11 05/25/18 19:40 05/25/18 20:13 Range/Units White Blood Count 4.07 4.8-10.8 K/uL Red Blood Count 2.73 4.2-5.4 M/uL Hemoglobin 5.8 5.2 12.0-16.0 g/dL Hematocrit 20.1 18.4 37-47 % Mean Corpuscular Volume 73.6 80-100 fL Mean Corpuscular Hemoglobin 21.2 25-34 pg Mean Corpuscular Hemoglobin Concent 28.9 32-36 g/dl Platelet Count 276 130-400 K/uL Mean Platelet Volume 7.9 7.4-10.4 fL Neutrophils (%) (Auto) 56.1 % Lymphocytes (%) (Auto) 32.7 % Monocytes (%) (Auto) 8.1 % Eosinophils (%) (Auto) 2.2 % Basophils (%) (Auto) 0.7 % Neutrophils # (Auto) 2.28 1.4-6.5 K/uL Lymphocytes # (Auto) 1.33 1.2-3.4 K/uL Monocytes # (Auto) 0.33 0.11-0.59 K/uL Eosinophils # (Auto) 0.09 0-0.5 K/uL Basophils # (Auto) 0.03 0-0.2 K/uL RDW Standard Deviation 45.8 36.4-46.3 fL RDW Coefficient of Variation 16.9 11.5-14.5 % Immature Granulocyte % (Auto) 0.2 % Immature Granulocyte # (Auto) 0.01 0.00-0.02 K/uL Hypochromasia PRESENT Prothrombin Time 11.0 9.0-12.0 SECONDS Prothromb Time International Ratio 1.0 0.9-1.1 Activated Partial Thromboplast Time 23.4 21.0-31.0 SECONDS Partial Thromboplastin Ratio 0.9 Sodium Level 142 136-145 mmol/L Potassium Level 4.1 3.5-5.1 mmol/L Chloride Level 110 98-107 mmol/L Carbon Dioxide Level 23 21-32 mmol/L Anion Gap 9.0 3-11 mmol/L Blood Urea Nitrogen 16 7-18 mg/dl Creatinine 0.96 0.60-1.20 mg/dl Est Creatinine Clear Calc Drug Dose 61.8 ml/min Estimated GFR () 69.0 Estimated GFR (Non- 59.5 BUN/Creatinine Ratio 16.7 10-20 Random Glucose 104 70-99 mg/dl Calcium Level 8.3 8.5-10.1 mg/dl Total Bilirubin 0.2 0.2-1 mg/dl Direct Bilirubin < 0.1 0-0.2 mg/dl Aspartate Amino Transf (AST/SGOT) 14 15-37 U/L Alanine Aminotransferase (ALT/SGPT) 18 12-78 U/L Alkaline Phosphatase 73 45-117 U/L Troponin I < 0.015 0-0.045 ng/ml Total Protein 6.9 6.4-8.2 gm/dl Albumin 3.1 3.4-5.0 gm/dl Lipase 183 73-393 U/L Urine Color YELLOW Urine Appearance CLEAR CLEAR Urine pH 7.5 4.5-7.5 Urine Specific [place] 1.023 1.000-1.030 Urine Protein NEG NEG Urine Glucose (UA) NEG NEG Urine Ketones NEG NEG Urine Occult Blood NEG NEG Urine Nitrite POS NEG Urine Bilirubin NEG NEG Urine Urobilinogen NEG NEG Urine Leukocyte Esterase SMALL NEG Urine WBC (Auto) 5-10 0-5 /hpf Urine RBC (Auto) 0-4 0-4 /hpf Urine Hyaline Casts (Auto) 0 0-5 /lpf Urine Epithelial Cells (Auto) 5-10 0-5 /lpf Urine Bacteria (Auto) 4+ NEG Diagnostic Radiology Patient Name: JAMAR NUNEZ Unit Number: [id number] Dictated: 05/25/181810 Transcribed: 05/25/181810 PBS Printed Date/Time: [~ rep prt dt]/[~ rep prt tm] [~ rep ct labl] - [~ rep ct ivnm] [facility] [place] [address] Dictated: 05/25/181810 Transcribed: 05/25/181810 PBS Printed Date/Time: [~ rep prt dt]/[~ rep prt tm] [~ rep ct labl] - [~ rep ct ivnm] CHEST ONE VIEW PORTABLE CLINICAL HISTORY: 73 years-old Female presenting with EVALUATE GI BLEED. TECHNIQUE: Portable upright AP view of the chest was obtained. COMPARISON: 12/16/2016. FINDINGS: Cardiomediastinal silhouette unchanged. Prominence of pulmonary vasculature unchanged. No focal opacity. No large effusion or pneumothorax. Scoliotic curvature of the spine. IMPRESSION: 1. Mild volume overload suggested. No other convincing evidence of acute cardiopulmonary disease. Electronically signed by: Adelso Sepulveda M.D. 05/25/2018 6:14 PM Dictated Date/Time: 05/25/2018 6:11 PM The status of this report is Signed. Draft = Not yet reviewed or approved by Radiologist. Signed = Reviewed and approved by Radiologist. <AttendingPhy></AttendingPhy> <FamilyPhy>Koby Ambrocio III, TRUCKER HAND</FamilyPhy> < PrimaryPhy>Koby Ambrocio III, TRUCKER HAND</PrimaryPhy> <UnitNumber>[id number]</ UnitNumber> <VisitNumber>[id number]</VisitNumber> <PatientName>JAMAR NUNEZ </PatientName> <DateOfBirth>1945</DateOfBirth> <Location>C.EDB</Location> <ServiceDate>05/25/18</ServiceDate> <MNE>ESINDI</MNE> <OrderingPhy>Fortino Price DO</OrderingPhy> <OrderingPhyMNE>f rep ord dr bhandari</OrderingPhyMNE> < DictatingPhyMNE>f rep dict dr bhandari</DictatingPhyMNE> <CCListMNE>f rep ct mne</ CCListMNE> <AdmittingPhyMNE>f pt admit dr bhandari</AdmittingPhyMNE> <AttendingPhyMNE >f pt attend dr bhandari</AttendingPhyMNE> <ConsultingPhyMNE>f pt consult dr bhandari</ConsultingPhyMNE> <FamilyPhyMNE>f pt fam dr bhandari</FamilyPhyMNE> <OtherPhyMNE>f pt other dr bhandari</OtherPhyMNE> < PrimaryPhyMNE>f pt prim care dr bhandari</PrimaryPhyMNE> <ReferringPhyMNE>f pt referring dr bhandari</ReferringPhyMNE> Patient Name: JAMAR NUNEZ Unit Number: [id number] Dictated: 05/25/181840 Transcribed: 05/25/181840 EV Printed Date/Time: [~ rep prt dt]/[~ rep prt tm] [~ rep ct labl] - [~ rep ct ivnm] [facility] [place] [address] Dictated: 05/25/181840 Transcribed: 05/25/181840 EV Printed Date/Time: [~ rep prt dt]/[~ rep prt tm] [~ rep ct labl] - [~ rep ct ivnm] CT SCAN OF THE ABDOMEN AND PELVIS WITH IV CONTRAST CLINICAL HISTORY: Generalized abdominal pain. GI bleeding. Anemia. COMPARISON STUDY: Abdominal CT dated 05/28/2012. TECHNIQUE: Following the IV administration of 116 cc of Optiray 320, CT scan of the abdomen and pelvis is performed from the lung bases to the proximal femora. Images are reviewed in the axial, sagittal, and coronal planes. IV contrast was administered without complication. A dose lowering technique was utilized adhering to the principles of ALARA. CT DOSE: 494.94 mGy.cm FINDINGS: Lung bases: The heart is enlarged and without pericardial effusion. There is no airspace consolidation or pleural effusion. Dependent scarring/atelectasis is observed. There is a 6 mm pulmonary nodule at the left lung base seen on image #41. This is been present dating back to 2011. Liver: The contrast-enhanced liver is normal in size, contour, and attenuation. There is no intrahepatic biliary ductal dilatation. The hepatic veins and portal veins are patent. Gallbladder: Contracted. Spleen: Normal in size and attenuation. Pancreas: Unremarkable. Adrenal glands: Unremarkable. Kidneys: The contrast enhanced kidneys are normal in size and without hydronephrosis. The kidneys enhance symmetrically. Abdominal vasculature: The abdominal aorta is normal in course and caliber noting mild to moderate atherosclerotic calcification. Bowel: There is mild to moderate colonic diverticulosis without CT evidence of acute diverticulitis. No bowel obstruction is seen. Colonic fecal retention is observed. The appendix is well-visualized and normal. Peritoneum/retroperitoneum: There is no retroperitoneal hemorrhage. There is no intraperitoneal free air or abdominal ascites. There is a fat-containing umbilical hernia. Lymphadenopathy: None. Pelvic viscera: The bladder, uterus, and adnexa are normal as visualized. Numerous phleboliths are observed in the pelvis. Skeletal structures: The skeletal structures are osteopenic. There is advanced lumbosacral spondylosis and scoliosis. No lytic or blastic lesions are seen. IMPRESSION: 1. There are no acute infectious or inflammatory findings in the abdomen or pelvis. 2. Cardiomegaly. 3. Mild to moderate colonic diverticulosis without CT evidence of acute diverticulitis. 4. Additional findings as above. Electronically signed by: Rudy Howell M.D. 05/25/2018 6:49 PM Dictated Date/Time: 05/25/2018 6:41 PM The status of this report is Signed. Draft = Not yet reviewed or approved by Radiologist. Signed = Reviewed and approved by Radiologist. <AttendingPhy></AttendingPhy> <FamilyPhy>Koby Ambrocio III, CRNP</FamilyPhy> < PrimaryPhy>Koby Ambrocio III, CRNP</PrimaryPhy> <UnitNumber>[id number]</ UnitNumber> <VisitNumber>[id number]</VisitNumber> <PatientName>JAMAR NUNEZ </PatientName> <DateOfBirth>1945</DateOfBirth> <Location>C.EDB</Location> <ServiceDate>05/25/18</ServiceDate> <MNE>ESINDI</MNE> <OrderingPhy>Fortino Price DO</OrderingPhy> <OrderingPhyMNE>f rep ord dr bhandari</OrderingPhyMNE> < DictatingPhyMNE>f rep dict dr bhandari</DictatingPhyMNE> <CCListMNE>f rep ct mne</ CCListMNE> <AdmittingPhyMNE>f pt admit dr bhandari</AdmittingPhyMNE> <AttendingPhyMNE >f pt attend dr bhandari</AttendingPhyMNE> <ConsultingPhyMNE>f pt consult dr bhandari</ConsultingPhyMNE> <FamilyPhyMNE>f pt fam dr bhandari</FamilyPhyMNE> <OtherPhyMNE>f pt other dr bhandari</OtherPhyMNE> < PrimaryPhyMNE>f pt prim care dr bhandari</PrimaryPhyMNE> <ReferringPhyMNE>f pt referring dr bhandari</ReferringPhyMNE> EKG JAMAR NUNEZ ID:[id number] 25-MAY[birth year]2018 18:14:41 [facility] Normal sinus rhythm Normal ECG When compared with ECG of 16-DEC-2016 13:51, No significant change was found 25mm/s 10mm/mV 150Hz 8.0 SP2 12SL 241 HD CATRACHITO: 12 Referred by: Koby Ambrocio Unconfirmed Vent. rate 77 BPM DC interval 186 ms QRS duration 88 ms QT/QTc 384/434 ms P-R-T axes 20 1945 (73 yr) Female 1lb Room: Loc:15 Speech Therapy Teacher:HENOK Mann Impression Assessment and Plan Lower GI bleed/bright red blood per rectum/symptomatic anemia-- Admit to monitored bed. N.p.o. H&H every 6 hours. Transfuse 2 units PRBCs now, and repeat H&H. Hold Xarelto. Change pantoprazole to 40 mg IV twice daily. Consult gastroenterology Dr. Loyola. UTI-- Follow urine culture and sensitivity. Start ceftriaxone 1 g IV daily empirically. Hypertension-- Hold metoprolol for low blood pressure. Bilateral pulmonary embolism-- Hold Xarelto as noted above. Hyperthyroidism-- Continue methimazole 7.5 mg every morning. Advanced Directives Existing Advance Directive: No Existing Living Will: No Existing Power of General Labor: No Resuscitation Status VTE Prophylaxis Will order VTE Prophylaxis: Yes Social Service Consult None Apply
[2018-05-25] MEDS ORDERED: NURSING VERBAL MED ORDER ONE ×2 (21:45→23:15)
[2018-05-25] MEDS: PANTOprazole INJ 40 MG in SYRINGE 0 ML IV SCH (21:49)
[2018-05-25] MEDS ORDERED: FUROSEMIDE INJ 20 MG in SYRINGE 0 ML IV SCH (22:00)
[2018-05-25] MEDS: NSS + 20MEQ KCL 1000ML 1,000 ML IV SCH (23:23)
[2018-05-25] MEDS: CEFTRIAXONE SOD INJ 1 GM in DEXTROSE 5% ADD-VANTAGE 50ML 50 ML IV SCH (23:23)
[2018-05-26] VITALS (27 sets, daily range): BP systolic 126–162; BP diastolic 74–94; PULSE 61–84; TEMP 36.3–37.9; O2SAT 96–99
--- NOTE | 2018-05-26 00:14 | EMERGENCY ROOM VISIT NOTE ---
History Report prepared by Lottie: Lexi Jauregui Under the Supervision of: Dr. Fortino Price D.O. First contact with patient: 17:52 Chief Complaint: ABNORMAL LABS Stated Complaint: REFERRED FOR ABNORMAL LABS History of Present Illness The patient is a 73 year old female who presents to the Emergency Room with a referral because of low hemoglobin after having blood work done earlier this afternoon. Per records, the patient's previous hemoglobin was 11, but today it was found to be 5. The patient states that she has bleeding hemorrhoids that she has had for years. She states that this blood is bright red. The patient also states that she does not have blood with every bowel movement but she more frequently does have blood in her bowel movements. The patient states that she has been short of breath recently and denies any chest pain. The patient denies any vomiting, coughing up blood, or fevers. The patient states that she does feel cold and has a "heaviness" in her abdomen. She states that she has felt weak and tired for the past ten days. The patient states that the last few days she has had a high heart rate, but states that her blood pressure has stayed normal. The patient denies any dark or tarry stools. The patient states that she takes Xarelto for previous pulmonary embolisms. The patient states that these occurred in 2014, three years ago, but she has not had any problems since then. She states that she tried to go off Xarelto a year ago but she got pains in her left leg so she was put back on. She states that she last took her Xarelto last night. She states that she has a colonoscopy scheduled for November of the next year, approximately six months from now. Source of History: patient Onset: this afternoon Position: other (generalized ) Quality: other (low hemoglobin ) Associated Symptoms: + chills, + SOB, + abdominal pain ("heaviness" ), + fatigue, + weakness, No fevers, No cough (no coughing up blood ), No chest pain , No vomiting Note: additional symptoms: increased heart rate Review of Systems See HPI for pertinent positives & negatives. A total of 10 systems reviewed and were otherwise negative. Past Medical & Surgical Medical Problems: (1) Bilateral pulmonary embolism (2) HTN (hypertension) (3) Lower GI bleed (4) Symptomatic anemia Family History Patient reports no known family medical history. Social History Smoking Status: Never Smoker Alcohol Use: none Marital Status: Housing Status: lives with significant other Occupation Status: retired Current/Historical Medications Scheduled Calcium Carbonate (Calcium), 200 MG PO BID Ergocalciferol (Vitamin D 34018 Unit), 50,000 UNITS PO 3XWK Magnesium Oxide (Mag-Ox), 200 MG PO QAM Methimazole (Methimazole ), 7.5 MG QAM Metoprolol Succinate (Metoprolol Succinate ER), 50 MG PO BID Multivitamin (Multivitamin), 1 TAB PO QAM Pantoprazole (Protonix), 40 MG PO QAM Probiotic Product (Probiotic), 1 TAB PO QAM Rivaroxaban (Xarelto), 1 TAB PO HS Scheduled PRN Senna (Senokot), 1 TAB PO for CONSTIPATION Allergies Coded Allergies: No Known Allergies (Unverified , 03/25/18) Physical Exam Vital Signs Date Time Temp Pulse Resp B/P (MAP) Pulse Ox O2 Delivery O2 Flow Rate FiO2 05/25/18 19:11 99 Room Air 05/25/18 18:07 99 Room Air 05/25/18 17:49 37.1 91 20 118/73 99 Room Air Physical Exam GENERAL: Sitting up in bed, alert, slightly ill-appearing, well nourished, no distress, non-toxic. Slightly dyspneic with conversation. EYE EXAM: normal conjunctiva. OROPHARYNX: no exudate, no erythema, lips, buccal mucosa, and tongue normal and mucous membranes are moist NECK: supple, no nuchal rigidity, no adenopathy, non-tender LUNGS: Clear to auscultation. Normal chest wall mechanics HEART: no murmurs, S1 normal and S2 normal ABDOMEN: abdomen soft, non-tender, normo-active bowel sounds, no masses, no rebound or guarding. BACK: Back is symmetrical on inspection and there is no deformity, no midline tenderness, no CVA tenderness. SKIN: no rashes and no bruising UPPER EXTREMITIES: upper extremities are grossly normal. LOWER EXTREMITIES: No pitting edema. NEURO EXAM: Normal sensorium, cranial nerves II-XII grossly intact, normal speech, no gross weakness of arms, no gross weakness of legs. Medical Decision & Procedures ER Provider Diagnostic Interpretation: Radiology results as stated below per my review and the radiologist's interpretation: CHEST ONE VIEW PORTABLE CLINICAL HISTORY: 73 years-old Female presenting with EVALUATE GI BLEED. TECHNIQUE: Portable upright AP view of the chest was obtained. COMPARISON: 12/16/2016. FINDINGS: Cardiomediastinal silhouette unchanged. Prominence of pulmonary vasculature unchanged. No focal opacity. No large effusion or pneumothorax. Scoliotic curvature of the spine. IMPRESSION: 1. Mild volume overload suggested. No other convincing evidence of acute cardiopulmonary disease. Electronically signed by: Adelso Sepulveda M.D. 05/25/2018 6:14 PM Dictated Date/Time: 05/25/2018 6:[address] SCAN OF THE ABDOMEN AND PELVIS WITH IV CONTRAST CLINICAL HISTORY: Generalized abdominal pain. GI bleeding. Anemia. COMPARISON STUDY: Abdominal CT dated 05/28/2012. TECHNIQUE: Following the IV administration of 116 cc of Optiray 320, CT scan of the abdomen and pelvis is performed from the lung bases to the proximal femora. Images are reviewed in the axial, sagittal, and coronal planes. IV contrast was administered without complication. A dose lowering technique was utilized adhering to the principles of ALARA. CT DOSE: 494.94 mGy.cm FINDINGS: Lung bases: The heart is enlarged and without pericardial effusion. There is no airspace consolidation or pleural effusion. Dependent scarring/atelectasis is observed. There is a 6 mm pulmonary nodule at the left lung base seen on image #41. This is been present dating back to 2011. Liver: The contrast-enhanced liver is normal in size, contour, and attenuation. There is no intrahepatic biliary ductal dilatation. The hepatic veins and portal veins are patent. Gallbladder: Contracted. Spleen: Normal in size and attenuation. Pancreas: Unremarkable. Adrenal glands: Unremarkable. Kidneys: The contrast enhanced kidneys are normal in size and without hydronephrosis. The kidneys enhance symmetrically. Abdominal vasculature: The abdominal aorta is normal in course and caliber noting mild to moderate atherosclerotic calcification. Bowel: There is mild to moderate colonic diverticulosis without CT evidence of acute diverticulitis. No bowel obstruction is seen. Colonic fecal retention is observed. The appendix is well-visualized and normal. Peritoneum/retroperitoneum: There is no retroperitoneal hemorrhage. There is no intraperitoneal free air or abdominal ascites. There is a fat-containing umbilical hernia. Lymphadenopathy: None. Pelvic viscera: The bladder, uterus, and adnexa are normal as visualized. Numerous phleboliths are observed in the pelvis. Skeletal structures: The skeletal structures are osteopenic. There is advanced lumbosacral spondylosis and scoliosis. No lytic or blastic lesions are seen. IMPRESSION: 1. There are no acute infectious or inflammatory findings in the abdomen or pelvis. 2. Cardiomegaly. 3. Mild to moderate colonic diverticulosis without CT evidence of acute diverticulitis. 4. Additional findings as above. Electronically signed by: Rudy Howell M.D. 05/25/2018 6:49 PM Dictated Date/Time: 05/25/2018 6:41 PM Laboratory Results 05/25/18 18:11 Red Blood Count 2.73, Mean Corpuscular Volume 73.6, Mean Corpuscular Hemoglobin 21.2, Mean Corpuscular Hemoglobin Concent 28.9, Mean Platelet Volume 7.9, Neutrophils (%) (Auto) 56.1, Lymphocytes (%) (Auto) 32.7, Monocytes (%) (Auto) 8.1, Eosinophils (%) (Auto) 2.2, Basophils (%) (Auto) 0.7, Neutrophils # (Auto) 2.28, Lymphocytes # (Auto) 1.33, Monocytes # (Auto) 0.33, Eosinophils # (Auto) 0.09, Basophils # (Auto) 0.03 05/25/18 18:11 Test 05/25/18 18:11 05/25/18 19:40 White Blood Count 4.07 K/uL (4.8-10.8) Red Blood Count 2.73 M/uL (4.2-5.4) Hemoglobin 5.8 g/dL (12.0-16.0) Hematocrit 20.1 % (37-47) Mean Corpuscular Volume 73.6 fL (80-100) Mean Corpuscular Hemoglobin 21.2 pg (25-34) Mean Corpuscular Hemoglobin Concent 28.9 g/dl (32-36) Platelet Count 276 K/uL (130-400) Mean Platelet Volume 7.9 fL (7.4-10.4) Neutrophils (%) (Auto) 56.1 % Lymphocytes (%) (Auto) 32.7 % Monocytes (%) (Auto) 8.1 % Eosinophils (%) (Auto) 2.2 % Basophils (%) (Auto) 0.7 % Neutrophils # (Auto) 2.28 K/uL (1.4-6.5) Lymphocytes # (Auto) 1.33 K/uL (1.2-3.4) Monocytes # (Auto) 0.33 K/uL (0.11-0.59) Eosinophils # (Auto) 0.09 K/uL (0-0.5) Basophils # (Auto) 0.03 K/uL (0-0.2) RDW Standard Deviation 45.8 fL (36.4-46.3) RDW Coefficient of Variation 16.9 % (11.5-14.5) Immature Granulocyte % (Auto) 0.2 % Immature Granulocyte # (Auto) 0.01 K/uL (0.00-0.02) Hypochromasia PRESENT Prothrombin Time 11.0 SECONDS (9.0-12.0) Prothromb Time International Ratio 1.0 (0.9-1.1) Activated Partial Thromboplast Time 23.4 SECONDS (21.0-31.0) Partial Thromboplastin Ratio 0.9 Anion Gap 9.0 mmol/L (3-11) Est Creatinine Clear Calc Drug Dose 61.8 ml/min Estimated GFR () 69.0 Estimated GFR (Non- 59.5 BUN/Creatinine Ratio 16.7 (10-20) Calcium Level 8.3 mg/dl (8.5-10.1) Total Bilirubin 0.2 mg/dl (0.2-1) Direct Bilirubin < 0.1 mg/dl (0-0.2) Aspartate Amino Transf (AST/SGOT) 14 U/L (15-37) Alanine Aminotransferase (ALT/SGPT) 18 U/L (12-78) Alkaline Phosphatase 73 U/L (45-117) Troponin I < 0.015 ng/ml (0-0.045) Total Protein 6.9 gm/dl (6.4-8.2) Albumin 3.1 gm/dl (3.4-5.0) Lipase 183 U/L (73-393) Urine Color YELLOW Urine Appearance CLEAR (CLEAR) Urine pH 7.5 (4.5-7.5) Urine Specific [place] 1.023 (1.000-1.030) Urine Protein NEG (NEG) Urine Glucose (UA) NEG (NEG) Urine Ketones NEG (NEG) Urine Occult Blood NEG (NEG) Urine Nitrite POS (NEG) Urine Bilirubin NEG (NEG) Urine Urobilinogen NEG (NEG) Urine Leukocyte Esterase SMALL (NEG) Urine WBC (Auto) 5-10 /hpf (0-5) Urine RBC (Auto) 0-4 /hpf (0-4) Urine Hyaline Casts (Auto) 0 /lpf (0-5) Urine Epithelial Cells (Auto) 5-10 /lpf (0-5) Urine Bacteria (Auto) 4+ (NEG) Laboratory results per my review. Medications Administered Medications (Trade) Dose Ordered Sig/Jacinta Route Start Time Stop Time Status Last Admin Dose Admin Sodium Chloride 1,000 ml @ 999 mls/hr Q1H1M STAT IV 05/25/18 17:59 05/25/18 18:59 DC 05/25/18 18:23 999 MLS/HR ECG Per My Interpretation Indication: weakness Rate (beats per minute): 77 Rhythm: sinus rhythm Findings: T-wave inversion (Inferior), other (no PVCs) ED Course ED COURSE: Vital signs were reviewed and showed normal. The patients medical record was reviewed The above diagnostic studies were performed and reviewed. ED treatments and interventions as stated above. 175: The patient was evaluated in room B12B. A complete history and physical examination was performed. 175: Ordered Sodium Chloride 1000 ml @ 999 mls/hr. 185: Upon reevaluation, the patient is doing better.. I discussed my findings with the patient and she understands and agrees with the treatment plan. She also consents to getting blood. 1935: Based on the patients age, coexisting illnesses, exam and lab findings the decision to treat as an inpatient was made. The patient remained stable while under my care. The patient will be evaluated for further management by Dr. [facility] Hospitalist. Medical Decision Differential diagnosis includes etiologies such as diverticulosis, AVM, coagulopathy, colitis, inflammatory bowel disease, malignancy, Abida-Lentz tear, esophagitis, peptic ulcer disease, variceal bleed, gastritis, epistaxis, fissure, hemorrhoids, as well as others were entertained. Patient is a 73-year-old female referred in by PCP who has been having bright red blood per rectum on 10 a inhibitor for the past several months. Hemoglobin currently is 5.8. Last took Xarelto last night. CBC and BMP was otherwise unremarkable. Bilirubin, LFTs, troponin lipase was normal. UA did eventually result and did show UTI following admission. CT abdomen pelvis shows no acute pathology. Patient was typed and crossed and ordered for 2 units transfused while in the ER. Discussed with Dr. Hansen from hematology and she agrees with holding on any reversal agents at this time. Patient was updated at bedside. Patient was admitted to internal medicine for symptomatic anemia with a GI bleed on blood thinner. Medication Reconcilliation Current Medication List: was personally reviewed by me Blood Pressure Screening Patient's blood pressure: Normal blood pressure Impression Primary Impression: Lower GI bleed Additional Impression: Symptomatic anemia Critical Care I have personally spent 35 minutes of critical care time in the direct management of this patient. This includes bedside care, interpretation of diagnostic studies, and testing, discussion with consultants, patient, and family members, and other required patient management activities. This 35 minutes is in excess of all separately billable procedures. Scribe Attestation The scribe's documentation has been prepared under my direction and personally reviewed by me in its entirety. I confirm that the note above accurately reflects all work, treatment, procedures, and medical decision making performed by me. Departure Information Dispostion Being Evaluated By Hospitalist Referrals Koby Ambrocio III, CRNP (PCP) Patient Instructions My [facility] Problem Qualifiers
[2018-05-26 04:31] LABS: PTT PATIENT 20.8 SECONDS (21.0-31.0)
[2018-05-26 04:47] LABS: ALBUMIN 2.8 gm/dl (3.4-5.0); ALKALINE PHOSPHATASE 66 U/L (45-117); ALT/SGPT 16 U/L (12-78); AST/SGOT 13 U/L (15-37); BLOOD UREA NITROGEN 11 mg/dl (7-18); CALCIUM 7.7 mg/dl (8.5-10.1); CARBON DIOXIDE 23 mmol/L (21-32); CREATININE 0.88 mg/dl (0.60-1.20); GLUCOSE 83 mg/dl (70-99); HEMATOCRIT 22.2 % (37-47); HEMOGLOBIN 6.5 g/dL (12.0-16.0); MEAN CELL VOLUME 76.6 fL (80-100); MEAN CORPUSCULAR HEMOGLOBIN 22.4 pg (25-34); MEAN CORPUSCULAR HGB CONC 29.3 g/dl (32-36); MEAN PLATELET VOLUME 8.4 fL (7.4-10.4); NUCLEATED RED BLOOD CELL ABS 0.03 K/uL (0-0); PLATELET COUNT 248 K/uL (130-400); RED CELL DISTRIBUTION WIDTH CV 18.2 % (11.5-14.5); RED CELL DISTRIBUTION WIDTH SD 51.5 fL (36.4-46.3); SODIUM 143 mmol/L (136-145); TOTAL PROTEIN 6.3 gm/dl (6.4-8.2); WHITE BLOOD COUNT 4.26 K/uL (4.8-10.8)
[2018-05-26 05:01] LABS: BASO % 0.7 %; BASO ABS # 0.03 K/uL (0-0.2); EOS % 2.1 %; EOS ABS # 0.09 K/uL (0-0.5); IG# 0.01 K/uL (0.00-0.02); LYMPH % 25.6 %; LYMPH ABS # 1.09 K/uL (1.2-3.4); MONO % 7.5 %; MONO ABS # 0.32 K/uL (0.11-0.59); NEUT % 63.9 %; NEUT ABS # 2.72 K/uL (1.4-6.5)
[2018-05-26 08:26] LABS: HEMATOCRIT 24.3 % (37-47); HEMOGLOBIN 7.3 g/dL (12.0-16.0)
[2018-05-26] MEDS: NSS + 20MEQ KCL 1000ML 1,000 ML IV SCH ×2 (08:29→17:40)
[2018-05-26] MEDS: PANTOprazole INJ 40 MG in SYRINGE 0 ML IV SCH ×2 (08:30→20:27)
[2018-05-26] MEDS: METHIMAZOLE 5 MG TAB PO SCH (08:31)
--- NOTE | 2018-05-26 12:05 | Gastrointestinal Consultation ---
Gastrointestinal Consultation Date of Consultation: May 26, 2018 Attending Physician: Dr. Foster Consulting Physician: Dorina Navarro PA-C Reason for Consultation: GI bleeding History of Present Illness Patient is a 73 year old female with a PMH of anemia, bilateral PE, HTN, constipation, hemorrhoids, & diverticulosis who was admitted to the hospital after having outpatient laboratory studies performed that indicated significant anemia. Upon presentation to the ER, her H/H was 5.8/20.1. She has since been infused 3 units of blood and is now on her 4th and her blood count is presently 7.3/24.3. The patient reports that several weeks ago, her rectal bleeding returned, but did not stop. She is on Xarelto. She reports that she ignored the symptoms. She was planning to get through her upcoming eye surgery before addressing this further. She reports that she was feeling cold and tired. She recently was evaluated in the outpatient clinic for constipation and her symptoms of constipation and bleeding improved with Metamucil and increased water intake. She notes that when she would develop bleeding originally, it occurred only with a hard stool. Due to her chronic anemia and issues with swallowing, she has undergone an EGD & colonoscopy in the past 6 months. Her EGD was in March 2018 and indicated a Schatzki ring and a hiatal hernia. Her symptoms of dysphagia improved. She was noted to have grade 1 varices, but a subsequent liver work-up was unremarkable including an unremarkable US & liver panel. She has had a CT scan during this admission that did not indicate any liver abnormalities. She had a colonoscopy in November. She was noted to have hemorrhoids, diverticulosis and an inflammatory polyp. She reports mild lower abdominal discomfort today. She reports she feels the urge to have a bowel movement. She denies heartburn, reflux, or chest pain. She denies further upper GI or lower GI complaints. Past Medical/Surgical History Medical Problems: (1) Anemia Status: Acute (2) Symptomatic PVCs Status: Acute Past Medical History: anemia, bilateral PE, HTN, constipation, hemorrhoids, diverticulosis, esophageal varices Past Surgical History: EGD, colonoscopy Family History Patient reports no known family medical history. Social History Smoking Status: Never Smoker Alcohol Use: none Drug Use: none Marital Status: Housing Status: lives with significant other Occupation Status: retired Allergies Coded Allergies: No Known Allergies (Unverified , 03/25/18) Current Medications Home Meds and Scripts Medications Dose Route/Sig Max Daily Dose Days Date Category Metoprolol Succinate ER (Metoprolol Succinate) 50 Mg Tabcr 50 Mg PO BID 05/25/18 Reported Methimazole (Methimazole) 5 Mg Tab 7.5 Mg QAM 03/25/18 Reported Senokot (Senna) 8.6 Mg Tab 1 Tab PO PRN 03/25/18 Reported Xarelto (Rivaroxaban) 20 Mg Tab 1 Tab PO HS 03/25/18 Reported Probiotic (Probiotic Product) 1 Cap Cap 1 Tab PO QAM 03/25/18 Reported Protonix (Pantoprazole Sodium) 40 Mg Tab 40 Mg PO QAM 03/25/18 Reported Multivitamin (Multivitamins) Tab 1 Tab PO QAM 03/25/18 Reported Mag-Ox (Magnesium Oxide) 400 Mg Tab 200 Mg PO QAM 03/25/18 Reported Vitamin D 00067 Unit (Ergocalciferol) 50,000 Unit Cap 50,000 Units PO 3XWK 03/25/18 Reported Calcium (Calcium Carbonate) 600 Mg Tab 200 Mg PO BID 03/25/18 Reported Review of Systems Constitutional: + fatigue, No fever, No chills, No weight loss Eyes: No problem reported Respiratory: + dyspnea on exertion, No cough, No shortness of breath Abdomen: + GI bleeding, + problem reported (lower abdominal discomfort), No pain, No nausea, No vomiting, No diarrhea Neuro: + problem reported Psych: No problem reported Heme: + problem reported Physical Exam Date Time Temp Pulse Resp B/P (MAP) Pulse Ox O2 Delivery O2 Flow Rate FiO2 05/26/18 10:54 36.7 73 18 146/94 97 05/26/18 09:56 36.9 82 20 146/88 99 05/26/18 08:56 36.8 66 18 144/85 98 05/26/18 08:26 37.1 61 18 132/86 97 05/26/18 08:18 37.1 61 18 132/86 97 05/26/18 07:46 36.5 84 18 138/74 (95) 96 05/26/18 07:39 37.9 72 18 136/87 97 05/26/18 06:50 37.1 73 18 130/83 97 05/26/18 06:18 36.9 71 15 142/88 97 05/26/18 05:48 36.8 66 18 144/83 97 05/26/18 05:33 36.8 74 16 138/85 99 05/26/18 05:18 37.1 67 15 132/83 96 05/26/18 03:06 37.1 71 17 126/81 98 05/26/18 02:15 37.1 69 17 134/83 98 05/26/18 01:45 36.9 71 17 134/84 98 05/26/18 01:15 36.3 69 18 136/81 98 05/26/18 00:59 36.9 67 17 139/83 97 05/26/18 00:40 36.9 68 18 146/84 98 05/26/18 00:29 37.0 74 15 135/80 98 05/26/18 00:01 Room Air 05/25/18 23:34 36.9 79 16 131/79 98 05/25/18 23:00 36.4 75 136/80 99 05/25/18 22:31 36.9 76 131/78 05/25/18 22:17 36.5 79 133/74 05/25/18 21:52 36.8 70 18 147/76 100 05/25/18 20:50 36.7 89 22 150/80 (103) 100 Room Air 05/25/18 20:44 88 16 133/75 99 05/25/18 20:30 88 16 133/75 05/25/18 19:11 99 Room Air 05/25/18 18:07 99 Room Air 05/25/18 17:49 37.1 91 20 118/73 99 Room Air General Appearance: WD/WN, no apparent distress Eyes: normal inspection, PERRL ENT: hearing grossly normal Respiratory/Chest: lungs clear Cardiovascular: regular rate, rhythm, no edema Abdomen: normal bowel sounds, non tender, soft Extremities: non-tender Neurologic/Psych: alert, oriented x 3 Skin: + pallor Laboratory Results Last 24 Hours Test 05/25/18 18:11 05/25/18 19:40 05/25/18 20:13 05/26/18 04:03 White Blood Count 4.07 K/uL 4.26 K/uL Red Blood Count 2.73 M/uL 2.90 M/uL Hemoglobin 5.8 g/dL 5.2 g/dL 6.5 g/dL Hematocrit 20.1 % 18.4 % 22.2 % Mean Corpuscular Volume 73.6 fL 76.6 fL Mean Corpuscular Hemoglobin 21.2 pg 22.4 pg Mean Corpuscular Hemoglobin Concent 28.9 g/dl 29.3 g/dl Platelet Count 276 K/uL 248 K/uL Mean Platelet Volume 7.9 fL 8.4 fL Neutrophils (%) (Auto) 56.1 % 63.9 % Lymphocytes (%) (Auto) 32.7 % 25.6 % Monocytes (%) (Auto) 8.1 % 7.5 % Eosinophils (%) (Auto) 2.2 % 2.1 % Basophils (%) (Auto) 0.7 % 0.7 % Neutrophils # (Auto) 2.28 K/uL 2.72 K/uL Lymphocytes # (Auto) 1.33 K/uL 1.09 K/uL Monocytes # (Auto) 0.33 K/uL 0.32 K/uL Eosinophils # (Auto) 0.09 K/uL 0.09 K/uL Basophils # (Auto) 0.03 K/uL 0.03 K/uL RDW Standard Deviation 45.8 fL 51.5 fL RDW Coefficient of Variation 16.9 % 18.2 % Immature Granulocyte % (Auto) 0.2 % 0.2 % Immature Granulocyte # (Auto) 0.01 K/uL 0.01 K/uL Hypochromasia PRESENT PRESENT Microcytosis PRESENT Acanthocytes 1+ Prothrombin Time 11.0 SECONDS 11.0 SECONDS Prothromb Time International Ratio 1.0 1.0 Activated Partial Thromboplast Time 23.4 SECONDS 20.8 SECONDS Partial Thromboplastin Ratio 0.9 0.8 Sodium Level 142 mmol/L 143 mmol/L Potassium Level 4.1 mmol/L 4.0 mmol/L Chloride Level 110 mmol/L 114 mmol/L Carbon Dioxide Level 23 mmol/L 23 mmol/L Anion Gap 9.0 mmol/L 6.0 mmol/L Blood Urea Nitrogen 16 mg/dl 11 mg/dl Creatinine 0.96 mg/dl 0.88 mg/dl Est Creatinine Clear Calc Drug Dose 61.8 ml/min 67.5 ml/min Estimated GFR () 69.0 76.6 Estimated GFR (Non- 59.5 66.1 BUN/Creatinine Ratio 16.7 12.9 Random Glucose 104 mg/dl 83 mg/dl Calcium Level 8.3 mg/dl 7.7 mg/dl Total Bilirubin 0.2 mg/dl 0.4 mg/dl Direct Bilirubin < 0.1 mg/dl < 0.1 mg/dl Aspartate Amino Transf (AST/SGOT) 14 U/L 13 U/L Alanine Aminotransferase (ALT/SGPT) 18 U/L 16 U/L Alkaline Phosphatase 73 U/L 66 U/L Troponin I < 0.015 ng/ml Total Protein 6.9 gm/dl 6.3 gm/dl Albumin 3.1 gm/dl 2.8 gm/dl Lipase 183 U/L Urine Color YELLOW Urine Appearance CLEAR Urine pH 7.5 Urine Specific [place] 1.023 Urine Protein NEG Urine Glucose (UA) NEG Urine Ketones NEG Urine Occult Blood NEG Urine Nitrite POS Urine Bilirubin NEG Urine Urobilinogen NEG Urine Leukocyte Esterase SMALL Urine WBC (Auto) 5-10 /hpf Urine RBC (Auto) 0-4 /hpf Urine Hyaline Casts (Auto) 0 /lpf Urine Epithelial Cells (Auto) 5-10 /lpf Urine Bacteria (Auto) 4+ Nucleated RBC Absolute Count (auto) 0.03 K/uL Nucleated Red Blood Cells % 0.8 % Magnesium Level 2.2 mg/dl Test 05/26/18 08:06 Hemoglobin 7.3 g/dL Hematocrit 24.3 % Impression Patient is a 73 year old female with anemia & bright red blood per rectum. Her H /H after 3 units of blood this morning is 7.3/24.3. She is being transfused her 4th unit of blood at present. She reports no upper GI symptoms, but does report intermittent constipation and lower abdominal discomfort. She is on Xarelto. Plan 1) NPO. 2) EGD with push enteroscopy today. Pending results, may potentially need to be prepped tonight for a colonoscopy tomorrow. 3) Continue IV Protonix 40 mg BID. If active bleeding resumes, would switch to a drip. 4) Hold Xarelto. 5) Further recommendations pending result of this testing. Thank you for allowing us to participate in the care of this patient. If you should have any further questions or concerns, do not hesitate to contact us. Agree with BETI [place] as above Abd: Soft, NT, ND, +BS Continue current therapy Push Enteroscopy today for further evaluation of hematochezia.
--- NOTE | 2018-05-26 13:11 | Progress Note ---
Subjective Date of Service: May 26, 2018. Subjective Pt evaluation today including: conversation w/ patient, physical exam, lab review, conversation w/ [employer] sales consultant, review of inpatient medication list Pain: no pain PO Intake: NPO Voiding: no voiding problems patient feeling well after 3 units transfused, getting fourth unit during visit no pain with moving bowels but she will get occasional LLQ pain, mild and crampy feels that bleeding is due to hemorrhoids, internal, no pain denies vomiting blood or any vomiting at all, no epigastric pain reviewed labs, Hb up to 7.3, Cr and electrolytes stable Problem List Medical Problems: (1) Anemia Status: Acute (2) Symptomatic PVCs Status: Acute Review of Systems Constitutional: + weakness All Other Systems: Reviewed and Negative Medications Current Inpatient Medications Medications (Trade) Dose Ordered Sig/Jacinta Route Start Time Stop Time Status Last Admin Dose Admin Ioversol (Optiray 320) 100 ml UD PRN IV 05/25/18 18:15 05/29/18 18:14 Potassium Chloride/Sodium Chloride 1,000 ml @ 100 mls/hr Q10H IV 05/25/18 21:30 06/24/18 19:55 05/26/18 08:29 100 MLS/HR Methimazole (Methimazole Tab) 7.5 mg QAM PO 05/26/18 09:00 06/25/18 08:59 05/26/18 08:31 7.5 MG Pantoprazole Sodium 40 mg/ Syringe 10 ml @ 5 mls/min DAILY@,21 IV 05/25/18 21:00 06/24/18 20:59 05/26/18 08:30 5 MLS/MIN Ceftriaxone Sodium 1 gm/ Dextrose 50 ml @ 100 mls/hr Q24H IV 05/25/18 22:00 06/04/18 20:14 05/25/18 23:23 100 MLS/HR Ondansetron HCl (Zofran Inj) 4 mg Q6H PRN IV 05/25/18 20:15 06/24/18 20:14 Acetaminophen 100 ml @ 400 mls/hr Q8H PRN IV 05/25/18 20:15 06/24/18 20:14 Objective Vital Signs Date Time Temp Pulse Resp B/P (MAP) Pulse Ox O2 Delivery O2 Flow Rate FiO2 05/26/18 11:37 36.8 69 16 132/79 (96) 97 05/26/18 10:54 36.7 73 18 146/94 97 05/26/18 09:56 36.9 82 20 146/88 99 05/26/18 08:56 36.8 66 18 144/85 98 05/26/18 08:26 37.1 61 18 132/86 97 05/26/18 08:18 37.1 61 18 132/86 97 05/26/18 07:46 36.5 84 18 138/74 (95) 96 05/26/18 07:39 37.9 72 18 136/87 97 05/26/18 06:50 37.1 73 18 130/83 97 05/26/18 06:18 36.9 71 15 142/88 97 05/26/18 05:48 36.8 66 18 144/83 97 05/26/18 05:33 36.8 74 16 138/85 99 05/26/18 05:18 37.1 67 15 132/83 96 05/26/18 03:06 37.1 71 17 126/81 98 05/26/18 02:15 37.1 69 17 134/83 98 05/26/18 01:45 36.9 71 17 134/84 98 05/26/18 01:15 36.3 69 18 136/81 98 05/26/18 00:59 36.9 67 17 139/83 97 05/26/18 00:40 36.9 68 18 146/84 98 05/26/18 00:29 37.0 74 15 135/80 98 05/26/18 00:01 Room Air 05/25/18 23:34 36.9 79 16 131/79 98 05/25/18 23:00 36.4 75 136/80 99 05/25/18 22:31 36.9 76 131/78 05/25/18 22:17 36.5 79 133/74 05/25/18 21:52 36.8 70 18 147/76 100 05/25/18 20:50 36.7 89 22 150/80 (103) 100 Room Air 05/25/18 20:44 88 16 133/75 99 05/25/18 20:30 88 16 133/75 05/25/18 19:11 99 Room Air 05/25/18 18:07 99 Room Air 05/25/18 17:49 37.1 91 20 118/73 99 Room Air Physical Exam General Appearance: WD/WN, no apparent distress Eyes: normal inspection, EOMI, sclerae normal ENT: normal ENT inspection, hearing grossly normal, pharynx normal Neck: supple, no adenopathy, no JVD, trachea midline Respiratory/Chest: chest non-tender, lungs clear, normal breath sounds, no respiratory distress, no accessory muscle use Cardiovascular: regular rate, rhythm, no edema, no gallop, no JVD, no murmur Abdomen: normal bowel sounds, non tender, soft, no organomegaly Extremities: normal range of motion, non-tender, normal inspection, no pedal edema, no calf tenderness, pelvis stable Neurologic/Psychiatric: loan review analyst II-XII nml as tested, no motor/sensory deficits, alert, normal mood/affect, oriented x 3 Skin: normal color, warm/dry, no rash Laboratory Results Last 24 Hours Test 05/25/18 18:11 05/25/18 19:40 05/25/18 20:13 05/26/18 04:03 White Blood Count 4.07 K/uL 4.26 K/uL Red Blood Count 2.73 M/uL 2.90 M/uL Hemoglobin 5.8 g/dL 5.2 g/dL 6.5 g/dL Hematocrit 20.1 % 18.4 % 22.2 % Mean Corpuscular Volume 73.6 fL 76.6 fL Mean Corpuscular Hemoglobin 21.2 pg 22.4 pg Mean Corpuscular Hemoglobin Concent 28.9 g/dl 29.3 g/dl Platelet Count 276 K/uL 248 K/uL Mean Platelet Volume 7.9 fL 8.4 fL Neutrophils (%) (Auto) 56.1 % 63.9 % Lymphocytes (%) (Auto) 32.7 % 25.6 % Monocytes (%) (Auto) 8.1 % 7.5 % Eosinophils (%) (Auto) 2.2 % 2.1 % Basophils (%) (Auto) 0.7 % 0.7 % Neutrophils # (Auto) 2.28 K/uL 2.72 K/uL Lymphocytes # (Auto) 1.33 K/uL 1.09 K/uL Monocytes # (Auto) 0.33 K/uL 0.32 K/uL Eosinophils # (Auto) 0.09 K/uL 0.09 K/uL Basophils # (Auto) 0.03 K/uL 0.03 K/uL RDW Standard Deviation 45.8 fL 51.5 fL RDW Coefficient of Variation 16.9 % 18.2 % Immature Granulocyte % (Auto) 0.2 % 0.2 % Immature Granulocyte # (Auto) 0.01 K/uL 0.01 K/uL Hypochromasia PRESENT PRESENT Microcytosis PRESENT Acanthocytes 1+ Prothrombin Time 11.0 SECONDS 11.0 SECONDS Prothromb Time International Ratio 1.0 1.0 Activated Partial Thromboplast Time 23.4 SECONDS 20.8 SECONDS Partial Thromboplastin Ratio 0.9 0.8 Sodium Level 142 mmol/L 143 mmol/L Potassium Level 4.1 mmol/L 4.0 mmol/L Chloride Level 110 mmol/L 114 mmol/L Carbon Dioxide Level 23 mmol/L 23 mmol/L Anion Gap 9.0 mmol/L 6.0 mmol/L Blood Urea Nitrogen 16 mg/dl 11 mg/dl Creatinine 0.96 mg/dl 0.88 mg/dl Est Creatinine Clear Calc Drug Dose 61.8 ml/min 67.5 ml/min Estimated GFR () 69.0 76.6 Estimated GFR (Non- 59.5 66.1 BUN/Creatinine Ratio 16.7 12.9 Random Glucose 104 mg/dl 83 mg/dl Calcium Level 8.3 mg/dl 7.7 mg/dl Total Bilirubin 0.2 mg/dl 0.4 mg/dl Direct Bilirubin < 0.1 mg/dl < 0.1 mg/dl Aspartate Amino Transf (AST/SGOT) 14 U/L 13 U/L Alanine Aminotransferase (ALT/SGPT) 18 U/L 16 U/L Alkaline Phosphatase 73 U/L 66 U/L Troponin I < 0.015 ng/ml Total Protein 6.9 gm/dl 6.3 gm/dl Albumin 3.1 gm/dl 2.8 gm/dl Lipase 183 U/L Urine Color YELLOW Urine Appearance CLEAR Urine pH 7.5 Urine Specific [place] 1.023 Urine Protein NEG Urine Glucose (UA) NEG Urine Ketones NEG Urine Occult Blood NEG Urine Nitrite POS Urine Bilirubin NEG Urine Urobilinogen NEG Urine Leukocyte Esterase SMALL Urine WBC (Auto) 5-10 /hpf Urine RBC (Auto) 0-4 /hpf Urine Hyaline Casts (Auto) 0 /lpf Urine Epithelial Cells (Auto) 5-10 /lpf Urine Bacteria (Auto) 4+ Nucleated RBC Absolute Count (auto) 0.03 K/uL Nucleated Red Blood Cells % 0.8 % Magnesium Level 2.2 mg/dl Test 05/26/18 08:06 Hemoglobin 7.3 g/dL Hematocrit 24.3 % Assessment and Plan 73 yo female with blood loss anemia, bright red blood per rectum - Acute blood loss anemia: Hb down to 5 on admission up to 7.3 this morning after third unit, getting fourth unit, will repeat tomorrow vitals stable - GI bleed: per patient, it is bright red blood NPO, plan for EGD, possible push enteroscopy today possible colonoscopy tomorrow if nothing on EGD today Case following Protonix 40mg IV BID - Possible UTI started on Ceftriaxone no culture done yet, will keep for 48 hours Hypertension-- continue to hold Metoprolol BP 130-140 systolic Bilateral pulmonary embolism-- Hold Xarelto Hyperthyroidism-- Continue methimazole 7.5 mg every morning.
[2018-05-26 14:15] LABS: HEMATOCRIT 26.5 % (37-47); HEMOGLOBIN 8.1 g/dL (12.0-16.0)
--- NOTE | 2018-05-26 16:26 | Anesthesiology Progress Note ---
Anesthesia Post Op Note Date & Time May 26, 2018 at 16:25 Vital Signs Pain Intensity: 0 Vital Signs Past 12 Hours Date Time Temp Pulse Resp B/P (MAP) Pulse Ox O2 Delivery O2 Flow Rate FiO2 05/26/18 15:41 37.3 79 20 146/81 (102) 97 Room Air 05/26/18 11:37 36.8 69 16 132/79 (96) 97 05/26/18 10:54 36.7 73 18 146/94 97 05/26/18 09:56 36.9 82 20 146/88 99 05/26/18 08:56 36.8 66 18 144/85 98 05/26/18 08:26 37.1 61 18 132/86 97 05/26/18 08:18 37.1 61 18 132/86 97 05/26/18 08:00 Room Air 05/26/18 07:46 36.5 84 18 138/74 (95) 96 05/26/18 07:39 37.9 72 18 136/87 97 05/26/18 06:50 37.1 73 18 130/83 97 05/26/18 06:18 36.9 71 15 142/88 97 05/26/18 05:48 36.8 66 18 144/83 97 05/26/18 05:33 36.8 74 16 138/85 99 05/26/18 05:18 37.1 67 15 132/83 96 Notes Mental Status: alert / awake / arousable, participated in evaluation Pt Amnestic to Procedure: Yes Nausea / Vomiting: adequately controlled Pain: adequately controlled Airway Patency, RR, SpO2: stable & adequate BP & HR: stable & adequate Hydration State: stable & adequate Anesthetic Complications: no major complications apparent
--- NOTE | 2018-05-26 16:26 | GI REPORT ---
Patient Name: Joselin Hernandez Procedure Date: 05/26/2018 4:06 PM Date of : 1945 Admit Type: Inpatient Age: 73 Gender: Female Attending MD: Sixto Loyola DO Procedure: Small bowel enteroscopy Providers: Sixto Loyola DO Referring MD: Dane Foster Indications: Hematochezia Medicines: Monitored Anesthesia Care Complications: No immediate complications. Estimated Blood Loss: Estimated blood loss: none. Procedure: Pre-Anesthesia Assessment: - Prior to the procedure, a History and Physical was performed, and patient medications and allergies were reviewed. The patient's tolerance of previous anesthesia was also reviewed. The risks and benefits of the procedure and the sedation options and risks were discussed with the patient. All questions were answered, and informed consent was obtained. Prior Anticoagulants: The patient has taken Xarelto (rivaroxaban), last dose was 2 days prior to procedure. ASA Grade Assessment: II - A patient with mild systemic disease. After reviewing the risks and benefits, the patient was deemed in satisfactory condition to undergo the procedure. After obtaining informed consent, the endoscope was passed under direct vision. Throughout the procedure, the patient's blood pressure, pulse, and oxygen saturations were monitored continuously. The scope was introduced through the mouth, and advanced to the fourth part of duodenum. After obtaining informed consent, the endoscope was passed under direct vision. Throughout the procedure, the patient's blood pressure, pulse, and oxygen saturations were monitored continuously.The small bowel enteroscopy was accomplished without difficulty. The patient tolerated the procedure well. Findings: Two columns of non-bleeding grade I varices were found in the proximal esophagus, 24 cm from the incisors. They were 4 mm in largest diameter. No stigmata of recent bleeding were evident and no red tomi signs were present. The entire examined stomach was normal. There was no evidence of significant pathology in the entire examined duodenum. Impression: - Non-bleeding grade I esophageal varices. - Normal stomach. - Normal examined duodenum. - No specimens collected. Recommendation: - Return patient to [facility] for ongoing care. - Clear liquid diet. - Perform a colonoscopy tomorrow. Sixto Loyola DO 05/26/2018 4:26:01 PM This report has been signed electronically. Note Initiated On: 05/26/2018 4:06 PM Number of Addenda: 0 I attest to the content of the Intraoperative Record and orders documented therein, exceptions below {[id number]}
[2018-05-26] MEDS ORDERED: LAVAGE SOLUTION 4000ML PO SCH (18:00)
[2018-05-26 20:34] LABS: HEMATOCRIT 29.1 % (37-47); HEMOGLOBIN 8.9 g/dL (12.0-16.0)
[2018-05-26] MEDS: CEFTRIAXONE SOD INJ 1 GM in DEXTROSE 5% ADD-VANTAGE 50ML 50 ML IV SCH (22:17)
[2018-05-27] VITALS (7 sets, daily range): BP systolic 118–146; BP diastolic 71–88; PULSE 71–80; TEMP 36.6–37.3; O2SAT 95–99
[2018-05-27 02:18] LABS: HEMATOCRIT 26.2 % (37-47); HEMOGLOBIN 7.9 g/dL (12.0-16.0)
[2018-05-27] MEDS: NSS + 20MEQ KCL 1000ML 1,000 ML IV SCH (03:47)
[2018-05-27 06:40] LABS: INR 1.1 (0.9-1.1); PTT PATIENT 23.7 SECONDS (21.0-31.0)
[2018-05-27 07:15] LABS: ALBUMIN 3.6 gm/dl (3.4-5.0); CALCIUM 8.2 mg/dl (8.5-10.1); CREATININE 0.79 mg/dl (0.60-1.20); POTASSIUM 3.8 mmol/L (3.5-5.1); TOTAL PROTEIN 6.5 gm/dl (6.4-8.2)
[2018-05-27 07:21] LABS: HEMATOCRIT 27.3 % (37-47); HEMOGLOBIN 8.1 g/dL (12.0-16.0); MEAN CELL VOLUME 78.7 fL (80-100); MEAN CORPUSCULAR HEMOGLOBIN 23.3 pg (25-34); MEAN CORPUSCULAR HGB CONC 29.7 g/dl (32-36); MEAN PLATELET VOLUME 8.4 fL (7.4-10.4); NUCLEATED RED BLOOD CELL ABS 0.02 K/uL (0-0); PLATELET COUNT 220 K/uL (130-400); RED CELL DISTRIBUTION WIDTH CV 18.9 % (11.5-14.5); RED CELL DISTRIBUTION WIDTH SD 53.5 fL (36.4-46.3); WHITE BLOOD COUNT 4.19 K/uL (4.8-10.8)
[2018-05-27 07:37] LABS: BASO % 0.5 %; BASO ABS # 0.02 K/uL (0-0.2); EOS % 3.1 %; EOS ABS # 0.13 K/uL (0-0.5); IG# 0.01 K/uL (0.00-0.02); LYMPH % 22.9 %; LYMPH ABS # 0.96 K/uL (1.2-3.4); MONO % 9.5 %; NEUT % 63.8 %; NEUT ABS # 2.67 K/uL (1.4-6.5)
[2018-05-27] MEDS: PANTOprazole INJ 40 MG in SYRINGE 0 ML IV SCH ×2 (08:03→21:19)
--- NOTE | 2018-05-27 09:59 | Gastroenterology Progress Note ---
Progress Note Date of Service: May 27, 2018 Subjective Pt evaluation today including: conversation w/ patient, chart review, review of studies Patient is a 73 yo female with rectal bleeding and anemia. She had an unremarkable EGD/push enteroscopy on 05/26/18. She denies further bleeding. She is NPO. She has completed her bowel prep and is awaiting a colonoscopy today. Her H/H is 8.1/27.3. Review of Systems Constitutional: No fever Respiratory: No shortness of breath Cardiac: No chest pain Abdomen: + problem reported (LLQ discomfort), No nausea, No vomiting, No diarrhea, No GI bleeding Medications Current Inpatient Medications Medications (Trade) Dose Ordered Sig/Jacinta Route Start Time Stop Time Status Last Admin Dose Admin Ioversol (Optiray 320) 100 ml UD PRN IV 05/25/18 18:15 05/29/18 18:14 Potassium Chloride/Sodium Chloride 1,000 ml @ 100 mls/hr Q10H IV 05/25/18 21:30 06/24/18 19:55 05/27/18 03:47 100 MLS/HR Methimazole (Methimazole Tab) 7.5 mg QAM PO 05/26/18 09:00 06/25/18 08:59 05/26/18 08:31 7.5 MG Pantoprazole Sodium 40 mg/ Syringe 10 ml @ 5 mls/min DAILY@ IV 05/25/18 21:00 06/24/18 20:59 05/27/18 08:03 5 MLS/MIN Ceftriaxone Sodium 1 gm/ Dextrose 50 ml @ 100 mls/hr Q24H IV 05/25/18 22:00 06/04/18 20:14 05/26/18 22:17 100 MLS/HR Ondansetron HCl (Zofran Inj) 4 mg Q6H PRN IV 05/25/18 20:15 06/24/18 20:14 Acetaminophen 100 ml @ 400 mls/hr Q8H PRN IV 05/25/18 20:15 06/24/18 20:14 Objective Vital Signs Date Time Temp Pulse Resp B/P (MAP) Pulse Ox O2 Delivery O2 Flow Rate FiO2 05/27/18 08:06 Room Air 05/27/18 07:29 37.3 78 18 146/86 (106) 98 Room Air 05/27/18 03:52 37.0 77 18 118/71 (87) 98 Room Air 05/26/18 23:43 37.4 77 18 129/80 (96) 97 Room Air 05/26/18 20:00 Room Air 05/26/18 19:37 82 20 162/89 (113) 99 Room Air 05/26/18 19:31 37.1 76 16 145/88 (107) 97 Nasal Cannula 05/26/18 18:30 69 16 134/85 (101) 97 Nasal Cannula 05/26/18 17:30 36.6 71 16 131/87 (102) 97 Nasal Cannula 05/26/18 17:30 36.6 71 16 134/87 (103) 97 Nasal Cannula 05/26/18 17:00 36.6 80 16 146/94 (111) 97 Nasal Cannula 05/26/18 16:48 77 20 138/77 (97) 97 Room Air 05/26/18 16:45 36.7 70 16 146/88 (107) 97 Nasal Cannula 05/26/18 16:33 75 18 137/80 (99) 100 Room Air 05/26/18 16:18 36.5 83 16 134/73 (93) 98 Room Air 05/26/18 15:41 37.3 79 20 146/81 (102) 97 Room Air 05/26/18 11:37 36.8 69 16 132/79 (96) 97 05/26/18 10:54 36.7 73 18 146/94 97 Physical Exam General Appearance: WD/WN, no apparent distress Eyes: normal inspection, PERRL ENT: hearing grossly normal Extremities: normal range of motion Neurologic/Psych: alert, oriented x 3 Skin: normal color Laboratory Results Last 24 Hours Test 05/26/18 13:57 05/26/18 20:23 05/27/18 02:07 05/27/18 05:55 Hemoglobin 8.1 g/dL 8.9 g/dL 7.9 g/dL 8.1 g/dL Hematocrit 26.5 % 29.1 % 26.2 % 27.3 % White Blood Count 4.19 K/uL Red Blood Count 3.47 M/uL Mean Corpuscular Volume 78.7 fL Mean Corpuscular Hemoglobin 23.3 pg Mean Corpuscular Hemoglobin Concent 29.7 g/dl Platelet Count 220 K/uL Mean Platelet Volume 8.4 fL Neutrophils (%) (Auto) 63.8 % Lymphocytes (%) (Auto) 22.9 % Monocytes (%) (Auto) 9.5 % Eosinophils (%) (Auto) 3.1 % Basophils (%) (Auto) 0.5 % Neutrophils # (Auto) 2.67 K/uL Lymphocytes # (Auto) 0.96 K/uL Monocytes # (Auto) 0.40 K/uL Eosinophils # (Auto) 0.13 K/uL Basophils # (Auto) 0.02 K/uL RDW Standard Deviation 53.5 fL RDW Coefficient of Variation 18.9 % Immature Granulocyte % (Auto) 0.2 % Immature Granulocyte # (Auto) 0.01 K/uL Nucleated RBC Absolute Count (auto) 0.02 K/uL Nucleated Red Blood Cells % 0.5 % Polychromasia 1+ Hypochromasia PRESENT Poikilocytosis PRESENT Microcytosis PRESENT Prothrombin Time 11.4 SECONDS Prothromb Time International Ratio 1.1 Activated Partial Thromboplast Time 23.7 SECONDS Partial Thromboplastin Ratio 0.9 Sodium Level 143 mmol/L Potassium Level 3.8 mmol/L Chloride Level 111 mmol/L Carbon Dioxide Level 22 mmol/L Anion Gap 10.0 mmol/L Blood Urea Nitrogen 6 mg/dl Creatinine 0.79 mg/dl Est Creatinine Clear Calc Drug Dose 75.0 ml/min Estimated GFR () 87.3 Estimated GFR (Non- 75.3 BUN/Creatinine Ratio 7.3 Random Glucose 84 mg/dl Calcium Level 8.2 mg/dl Magnesium Level 2.1 mg/dl Total Bilirubin 0.8 mg/dl Direct Bilirubin 0.2 mg/dl Aspartate Amino Transf (AST/SGOT) 15 U/L Alanine Aminotransferase (ALT/SGPT) 15 U/L Alkaline Phosphatase 69 U/L Total Protein 6.5 gm/dl Albumin 3.6 gm/dl Assessment and Plan Patient is a 73 yo female with BRBPR & anemia. Her H/H has improved to 8.1/27.3 s/p 4 units of PRBCs. Keep NPO. Proceed with colonoscopy today. Further recommendations pending results of colonoscopy. Thank you for allowing us to participate in the care of this patient. If you should have any further questions or concerns, do not hesitate to contact us. Agree with Dorina Sam, PAC as above Abd: Soft, NT, ND, +BS Colonoscopy today as scheduled
[2018-05-27] MEDS ORDERED: MIDAZOLAM HCL 1 MG/ML 2ML VIAL ONE (12:04)
[2018-05-27] MEDS ORDERED: ONDANSETRON INJ 2 MG/ML 2 ML VIAL ONE (12:05)
[2018-05-27] MEDS ORDERED: LIDOCAINE HCL 2% 2 ML VIAL (20MG/ML) ONE (12:05)
[2018-05-27] MEDS ORDERED: PROPOFOL IV EMULSION 10 MG/ML 20 ML VIAL ONE (12:05)
--- NOTE | 2018-05-27 12:31 | GI REPORT ---
Patient Name: Joselin Hernandez Procedure Date: 05/27/2018 11:59 AM Date of : 1945 Admit Type: Inpatient Age: 73 Gender: Female Attending MD: Sixto Loyola DO Procedure: Colonoscopy Providers: Sixto Loyola DO Referring MD: Koby Ambrocio Indications: Hematochezia Medicines: Monitored Anesthesia Care Complications: No immediate complications. Estimated Blood Loss: Estimated blood loss: none. Procedure: Pre-Anesthesia Assessment: - Prior to the procedure, a History and Physical was performed, and patient medications and allergies were reviewed. The patient's tolerance of previous anesthesia was also reviewed. The risks and benefits of the procedure and the sedation options and risks were discussed with the patient. All questions were answered, and informed consent was obtained. Prior Anticoagulants: The patient has taken Xarelto (rivaroxaban), last dose was 2 days prior to procedure. ASA Grade Assessment: II - A patient with mild systemic disease. After reviewing the risks and benefits, the patient was deemed in satisfactory condition to undergo the procedure. After I obtained informed consent, the scope was passed under direct vision. Throughout the procedure, the patient's blood pressure, pulse, and oxygen saturations were monitored continuously. The scope was introduced through the anus and advanced to the terminal ileum. The colonoscopy was performed without difficulty. The patient tolerated the procedure well. The quality of the bowel preparation was good. The terminal ileum, ileocecal valve, appendiceal orifice, and rectum were photographed. Findings: The perianal and digital rectal examinations were normal. Multiple small-mouthed diverticula were found in the sigmoid colon. Internal hemorrhoids were found during retroflexion. The hemorrhoids were small. Impression: - Diverticulosis in the sigmoid colon. - Internal hemorrhoids. - No specimens collected. Recommendation: - Return patient to [facility] for ongoing care. - Advance diet as tolerated. - If patient has any re-bleeding, recommend bleeding scan for further evaluation - Will defer to primary team regarding further anticoagulation Sixto Loyola DO 05/27/2018 12:30:50 PM This report has been signed electronically. Note Initiated On: 05/27/2018 11:59 AM Number of Addenda: 0 I attest to the content of the Intraoperative Record and orders documented therein, exceptions below {[id number]}
--- NOTE | 2018-05-27 12:51 | Anesthesiology Progress Note ---
Anesthesia Post Op Note Date & Time May 27, 2018 at 12:51 Vital Signs Pain Intensity: 0 Vital Signs Past 12 Hours Date Time Temp Pulse Resp B/P (MAP) Pulse Ox O2 Delivery O2 Flow Rate FiO2 05/27/18 12:45 70 18 132/65 (87) 94 Room Air 05/27/18 12:30 37.4 73 18 134/74 (94) 95 Room Air 05/27/18 11:37 37.4 67 18 151/80 (103) 98 Room Air 05/27/18 08:06 Room Air 05/27/18 07:29 37.3 78 18 146/86 (106) 98 Room Air 05/27/18 03:52 37.0 77 18 118/71 (87) 98 Room Air Notes Mental Status: alert / awake / arousable, participated in evaluation Pt Amnestic to Procedure: Yes Nausea / Vomiting: adequately controlled Pain: adequately controlled Airway Patency, RR, SpO2: stable & adequate BP & HR: stable & adequate Hydration State: stable & adequate Anesthetic Complications: no major complications apparent
[2018-05-27 14:01] LABS: HEMATOCRIT 27.7 % (37-47); HEMOGLOBIN 8.3 g/dL (12.0-16.0)
[2018-05-27] MEDS ORDERED: NURSING VERBAL MED ORDER ONE (14:15)
[2018-05-27] MEDS: METHIMAZOLE 5 MG TAB PO SCH (15:38)
--- NOTE | 2018-05-27 16:27 | Progress Note ---
Subjective Date of Service: May 27, 2018. Subjective Pt evaluation today including: conversation w/ patient, physical exam, lab review, review of studies, conversation w/ healthcare market consultant, review of inpatient medication list Pain: no pain PO Intake: adequate Voiding: no voiding problems colonoscopy today, tolerated well, showed diverticular disease, small internal hemorrhoids, no active bleeding Hb up to 8.3 today, was 8.1 this morning no further signs of bleeding, vitals stable discussed with Dr. Loyola, if she bleeds again would suggest tagged RBC scan discussed with patient, will transfer to medical floor, repeat Hb in the AM, decide on discharge she kept asking about getting hemorrhoids surgically corrected, told her they were small, no signs of bleeding Problem List Medical Problems: (1) Anemia Status: Acute (2) Symptomatic PVCs Status: Acute Review of Systems All Other Systems: Reviewed and Negative Medications Current Inpatient Medications Medications (Trade) Dose Ordered Sig/Jacinta Route Start Time Stop Time Status Last Admin Dose Admin Ioversol (Optiray 320) 100 ml UD PRN IV 05/25/18 18:15 05/29/18 18:14 Methimazole (Methimazole Tab) 7.5 mg QAM PO 05/26/18 09:00 06/25/18 08:59 05/27/18 15:38 7.5 MG Pantoprazole Sodium 40 mg/ Syringe 10 ml @ 5 mls/min DAILY@ IV 05/25/18 21:00 06/24/18 20:59 05/27/18 08:03 5 MLS/MIN Ceftriaxone Sodium 1 gm/ Dextrose 50 ml @ 100 mls/hr Q24H IV 05/25/18 22:00 06/04/18 20:14 05/26/18 22:17 100 MLS/HR Ondansetron HCl (Zofran Inj) 4 mg Q6H PRN IV 05/25/18 20:15 06/24/18 20:14 Acetaminophen 100 ml @ 400 mls/hr Q8H PRN IV 05/25/18 20:15 06/24/18 20:14 Objective Vital Signs Date Time Temp Pulse Resp B/P (MAP) Pulse Ox O2 Delivery O2 Flow Rate FiO2 05/27/18 15:43 36.6 80 16 146/88 (107) 97 Room Air 05/27/18 14:26 36.6 74 18 145/83 (103) 98 Room Air 05/27/18 13:41 36.6 71 18 136/84 (101) 99 Room Air 05/27/18 13:00 74 18 134/79 (97) 97 Room Air 05/27/18 12:45 70 18 132/65 (87) 94 Room Air 05/27/18 12:30 37.4 73 18 134/74 (94) 95 Room Air 05/27/18 11:37 37.4 67 18 151/80 (103) 98 Room Air 05/27/18 08:06 Room Air 05/27/18 07:29 37.3 78 18 146/86 (106) 98 Room Air 05/27/18 03:52 37.0 77 18 118/71 (87) 98 Room Air 05/26/18 23:43 37.4 77 18 129/80 (96) 97 Room Air 05/26/18 20:00 Room Air 05/26/18 19:37 82 20 162/89 (113) 99 Room Air 05/26/18 19:31 37.1 76 16 145/88 (107) 97 Nasal Cannula 05/26/18 18:30 69 16 134/85 (101) 97 Nasal Cannula 05/26/18 17:30 36.6 71 16 131/87 (102) 97 Nasal Cannula 05/26/18 17:30 36.6 71 16 134/87 (103) 97 Nasal Cannula 05/26/18 17:00 36.6 80 16 146/94 (111) 97 Nasal Cannula 05/26/18 16:48 77 20 138/77 (97) 97 Room Air 05/26/18 16:45 36.7 70 16 146/88 (107) 97 Nasal Cannula 05/26/18 16:33 75 18 137/80 (99) 100 Room Air Physical Exam General Appearance: WD/WN, no apparent distress Eyes: normal inspection, EOMI, sclerae normal ENT: normal ENT inspection, hearing grossly normal, pharynx normal Neck: supple, no adenopathy, no JVD, trachea midline Respiratory/Chest: chest non-tender, lungs clear, normal breath sounds, no respiratory distress, no accessory muscle use Cardiovascular: regular rate, rhythm, no edema, no gallop, no JVD, no murmur Abdomen: normal bowel sounds, non tender, soft, no organomegaly Extremities: normal range of motion, non-tender, normal inspection, no pedal edema, no calf tenderness, pelvis stable 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, no motor/sensory deficits, alert, normal mood/affect, oriented x 3 Skin: normal color, warm/dry, no rash Laboratory Results Last 24 Hours Test 05/26/18 20:23 05/27/18 02:07 05/27/18 05:55 05/27/18 13:44 Hemoglobin 8.9 g/dL 7.9 g/dL 8.1 g/dL 8.3 g/dL Hematocrit 29.1 % 26.2 % 27.3 % 27.7 % White Blood Count 4.19 K/uL Red Blood Count 3.47 M/uL Mean Corpuscular Volume 78.7 fL Mean Corpuscular Hemoglobin 23.3 pg Mean Corpuscular Hemoglobin Concent 29.7 g/dl Platelet Count 220 K/uL Mean Platelet Volume 8.4 fL Neutrophils (%) (Auto) 63.8 % Lymphocytes (%) (Auto) 22.9 % Monocytes (%) (Auto) 9.5 % Eosinophils (%) (Auto) 3.1 % Basophils (%) (Auto) 0.5 % Neutrophils # (Auto) 2.67 K/uL Lymphocytes # (Auto) 0.96 K/uL Monocytes # (Auto) 0.40 K/uL Eosinophils # (Auto) 0.13 K/uL Basophils # (Auto) 0.02 K/uL RDW Standard Deviation 53.5 fL RDW Coefficient of Variation 18.9 % Immature Granulocyte % (Auto) 0.2 % Immature Granulocyte # (Auto) 0.01 K/uL Nucleated RBC Absolute Count (auto) 0.02 K/uL Nucleated Red Blood Cells % 0.5 % Polychromasia 1+ Hypochromasia PRESENT Poikilocytosis PRESENT Microcytosis PRESENT Prothrombin Time 11.4 SECONDS Prothromb Time International Ratio 1.1 Activated Partial Thromboplast Time 23.7 SECONDS Partial Thromboplastin Ratio 0.9 Sodium Level 143 mmol/L Potassium Level 3.8 mmol/L Chloride Level 111 mmol/L Carbon Dioxide Level 22 mmol/L Anion Gap 10.0 mmol/L Blood Urea Nitrogen 6 mg/dl Creatinine 0.79 mg/dl Est Creatinine Clear Calc Drug Dose 75.0 ml/min Estimated GFR () 87.3 Estimated GFR (Non- 75.3 BUN/Creatinine Ratio 7.3 Random Glucose 84 mg/dl Calcium Level 8.2 mg/dl Magnesium Level 2.1 mg/dl Total Bilirubin 0.8 mg/dl Direct Bilirubin 0.2 mg/dl Aspartate Amino Transf (AST/SGOT) 15 U/L Alanine Aminotransferase (ALT/SGPT) 15 U/L Alkaline Phosphatase 69 U/L Total Protein 6.5 gm/dl Albumin 3.6 gm/dl Assessment and Plan 73 yo female with blood loss anemia, bright red blood per rectum - Acute blood loss anemia: Hb down to 5 on admission up to 8.3 today after 4 units total transfused, repeat H/H tomorrow, no signs of bleeding vitals stable - GI bleed: per patient, it is bright red blood at home EGD with push enteroscopy normal yesterday colonoscopy today with diverticular disease and small internal hemorrhoids continue protonix per Dr. Loyola, consider tagged RBC scan if Hb drops again or signs of bleeding - Possible UTI started on Ceftriaxone no culture done yet, will keep for 48 hours, stop today Hypertension-- continue to hold Metoprolol BP 130-140 systolic Bilateral pulmonary embolism-- occurred in 2014 Hold Xarelto in reality, if this was only VTE episode then we could stop Xarelto will discuss with patient in detail tomorrow Hyperthyroidism-- Continue methimazole 7.5 mg every morning. transfer to medical floor
[2018-05-27] MEDS: ACETAMINOPHEN IV 100 ML IV PRN (21:43)
[2018-05-27] MEDS: CEFTRIAXONE SOD INJ 1 GM in DEXTROSE 5% ADD-VANTAGE 50ML 50 ML IV SCH (22:00)
[2018-05-28 06:44] LABS: HEMATOCRIT 27.2 % (37-47); HEMOGLOBIN 8.2 g/dL (12.0-16.0)
[2018-05-28 07:54] VITALS: BP 132/78; PULSE 78; TEMP 36.7; O2SAT 95
[2018-05-28] MEDS: METHIMAZOLE 5 MG TAB PO SCH (09:04)
[2018-05-28] MEDS: PANTOprazole INJ 40 MG in SYRINGE 0 ML IV SCH (09:05)
[2018-05-28 11:50] VITALS: BP 158/90; PULSE 94; TEMP 36.6; O2SAT 94
[2018-05-28] MEDS: ACETAMINOPHEN IV 100 ML IV PRN (12:11)
[2018-05-28 13:05] LABS: HEMATOCRIT 26.9 % (37-47); HEMOGLOBIN 8.1 g/dL (12.0-16.0)
[2018-05-28 14:40] VITALS: BP 146/80; PULSE 78; TEMP 36.7; O2SAT 96
[2018-05-28] MEDS ORDERED: DOCU-94 PO ×2 (14:50)
--- NOTE | 2018-05-28 15:02 | Discharge Instructions ---
Discharge Instructions Date of Service May 28, 2018. Admission Reason for Admission: Lower Gi Bleed,Symptomatic Anemia Discharge Discharge Diagnosis / Problem: Lower GI bleed, likely from internal hemorrhoids , Symptomatic anemia Discharge Goals Goal(s): Improve function, Improve disease control, Therapeutic intervention ( internal hemorrhoid treatment) Activity Recommendations Activity Limitations: resume your previous activity . Instructions / Follow-Up Instructions / Follow-Up Medications: - COLACE: stool softener, take twice a day with full glass of water - XARELTO: continue to hold for time being Gastrointestinal bleeding, likely from internal hemorrhoids EGD did not show any cause of the bleeding, no ulcers or gastritis, did show grade I esophageal varices but these were known about, stable colonoscopy showed small diverticula but no blood, showed small internal hemorrhoids that were known on admission your hemoglobin was quite low at 5.2, transfused total of 4 units, Hb has been stable at 8.1-8.3 for past two days recommend holding Xarelto for the time being it will be normal to see some blood when wiping use Colace (stool softener) twice a day with full glass of water since Metamucil did not work well, you can try other fiber supplements such as Citrucel, Benefiber or FiberCon, they each are different types of fiber recommend referral to colorectal surgeon as outpatient for evaluation for banding for definitive treatment follow up closely with Koby Ambrocio this week to recheck hemoglobin and get referral to colorectal surgeon FOLLOW UP - Koby Ambrocio PA-C this week, call for appointment on Wednesday Current Hospital Diet Patient's current hospital diet: AHA Diet (Heart Healthy) Discharge Diet Recommended Diet: AHA Diet (Heart Healthy) Procedures Procedures Performed: Colonoscopy EGD with push enteroscopy Pending Studies Studies pending at discharge: no Medical Emergencies . Who to Call and When: Medical Emergencies: If at any time you feel your situation is an emergency, please call 911 immediately. . Non-Emergent Contact Non-Emergency issues call your: Primary Care Provider Call Non-Emergent contact if: you have any medication questions . . "Provider Documentation" section prepared by Dane TINE[facility] Drug Monitoring Program Search Results: no issues identified
[2018-05-28 15:08] VITALS: BP 158/90; PULSE 94; TEMP 36.6; O2SAT 94
--- NOTE | 2018-05-29 15:35 | Discharge Summary ---
Discharge Summary Date of Service May 28, 2018. 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 Internal hemorrhoids Esophageal varices, grade I Immunizations: Have You Had Influenza Vaccine: Unknown History of Tetanus Vaccine?: Unknown History of Pneumococcal: Unknown History of Hepatitis B Vaccine: Unknown Procedures: EGD with push enteroscopy - grade I esophageal varices, no gastritis, no ulcers Colonoscopy - small diverticula, small internal hemorrhoids, non-bleeding on scope Consultations: Gastroenterology Medication Reconciliation New Medications: Docusate Sodium (Colace) 100 Mg Cap 1 CAP PO BID for 30 Days, #60 CAP 2 Refills Continued Medications: Calcium Carbonate (Calcium) 600 Mg Tab 200 MG PO BID Ergocalciferol (Vitamin D 02654 Unit) 50,000 Unit Cap 17558 UNITS PO 3XWK, 5 Refills Magnesium Oxide (Mag-Ox) 400 Mg Tab 200 MG PO QAM, TAB Methimazole (Methimazole ) 5 Mg Tab 7.5 MG QAM Metoprolol Succinate (Metoprolol Succinate ER) 50 Mg Tabcr 50 MG PO BID Multivitamin (Multivitamin) Tab 1 TAB PO QAM, TAB Pantoprazole (Protonix) 40 Mg Tab 40 MG PO QAM Probiotic Product (Probiotic) 1 Cap Cap 1 TAB PO QAM Senna (Senokot) 8.6 Mg Tab 1 TAB PO PRN for CONSTIPATION, TAB Discontinued Medications: Rivaroxaban (Xarelto) 20 Mg Tab 1 TAB PO HS Discharge Exam Patient had a small BM the morning of discharge, when she wiped there was small amount of red blood, nothing further. Repeated Hb in the afternoon, it was 8.1 , reviewing record, her Hb was 8.1 48 hours prior so it was stable. Long discussion with patient and her about plan. She presented with a Hb of 5.1 but her heart rate and blood pressure were normal suggesting that the bleed was slow, anemia developed over time. No evidence of brisk GI bleeding while here and Xarelto had been held. Discussed that the likely source of bleeding seemed to be small hemorrhoids since she described bright red blood with moving bowels over the past few weeks. Unfortunately she will need to be on anticoagulation because she had a PE in 2014 and then went off Xarelto and had a DVT in 2016, requires life long anticoagulation. For this reason I feel that it is necessary to get internal hemorrhoids banded to prevent further bleeding so that she can resume Xarelto. She will meet with Koby Ambrocio this week, hold Xarelto, get H/H rechecked. Will refer to colorectal surgery, she prefers [place]. She knows to return to hospital if she has brisk bleeding. Review of Systems: Constitutional: No fever, No chills, No sweats, No weight loss, No weakness , No fatigue, No problem reported Eyes: No worsening of vision, No eye pain, No redness, No discharge, No diplopia, No problem reported ENT: No hearing loss, No unusual epistaxis, No nasal symptoms, No sore throat, No tinnitus, No dental problems, No trouble swallowing, No problem reported Respiratory: No cough, No sputum, No wheezing, No shortness of breath, No dyspnea on exertion, No dyspnea at rest, No hemoptysis, No problem reported Cardiovascular: No chest pain, No orthopnea, No PND, No edema, No claudication, No palpitations, No problem reported Abdomen: + GI bleeding (very trace blood when wiping), No pain, No nausea, No vomiting, No diarrhea, No constipation, No problem reported Musculoskeletal: No joint pain, No muscle pain, No swelling, No calf pain, No problem reported Genitourinary - Female: No dysuria, No urinary frequency, No urinary urgency , No urinary incontinence, No urinary retention, No hematuria Neurologic: No memory loss, No paralysis, No weakness, No numbness/tingling , No vertigo, No balance problems, No problem reported Psychiatric: No depression symptoms, No anhedonism, No anxiety, No insomnia , No substance abuse, No problem reported Endocrine: No fatigue, No excessive thirst, No excessive urination, No problem reported Hematologic / Lymphatic: No abnormal bleeding/bruising, No clotting problems , No swollen lymph nodes, No night sweats, No problem reported Integumentary: No rash, No itch, No new/changing skin lesions, No color change, No bleeding, No problem reported Physical Exam: General Appearance: WD/WN, no apparent distress Eyes: normal inspection, EOMI, sclerae normal ENT: normal ENT inspection, hearing grossly normal, pharynx normal Neck: supple, no adenopathy, no JVD, trachea midline Respiratory/Chest: chest non-tender, lungs clear, normal breath sounds, no respiratory distress, no accessory muscle use Cardiovascular: regular rate, rhythm, no edema, no gallop, no JVD, no murmur , normal peripheral pulses Abdomen / GI: normal bowel sounds, non tender, soft, no organomegaly Extremities: normal inspection, no calf tenderness, normal capillary refill , no pedal edema, normal range of motion, pelvis stable 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 Loyola, consider tagged RBC scan if Hb drops again or signs of bleeding - Possible UTI started on Ceftriaxone no culture done yet, will keep for 48 hours, stop today Hypertension-- continue to hold Metoprolol BP 130-140 systolic Bilateral pulmonary embolism-- occurred in 2014 Hold Xarelto in reality, if this was only VTE episode then we could stop Xarelto will discuss with patient in detail tomorrow Hyperthyroidism-- Continue methimazole 7.5 mg every morning. transfer to medical floor This includes examination of the patient, discharge planning, medication reconciliation, and communication with other providers. Discharge Instructions Please refer to the electronic Patient Visit Report (Discharge Instructions) for additional information.
== END 2018-05-28 16:00 | disposition home or self-care (01) | DRG 378 ==
LOC: C.EDB 17:45 → C.2T 19:56 → ENRESERV 20:25 → EDBEDREQ 05-27 15:18 → ENRESERV 05-27 15:21 → C.4E 05-27 16:09
PROVIDERS: ADMIT Hospitalist; ATTEND Internal Medicine
PROC: 0DJ08ZZ Inspection of Upper Intestinal Tract, Via Natural or Artificial Opening Endoscopic (ICD-10-PCS; principal; 2018-05-26 15:31)
PROC: 0DJD8ZZ Inspection of Lower Intestinal Tract, Via Natural or Artificial Opening Endoscopic (ICD-10-PCS; 2018-05-27)
DX: K62.5 Hemorrhage of anus and rectum (principal); D62 Acute posthemorrhagic anemia; N39.0 Urinary tract infection, site not specified; I85.00 Esophageal varices without bleeding; K57.30 Diverticulosis of large intestine without perforation or abscess without bleeding; K64.8 Other hemorrhoids; I10 Essential (primary) hypertension; E05.90 Thyrotoxicosis, unspecified without thyrotoxic crisis or storm; Z86.711 Personal history of pulmonary embolism; Z79.01 Long term (current) use of anticoagulants; Z79.899 Other long term (current) drug therapy

== ENCOUNTER → 2018-05-25 | Outpatient (CLI) | payer BC ==
[2018-05-25 16:56] LABS: HEMATOCRIT 20.3 % (37-47); HEMOGLOBIN 5.9 g/dL (12.0-16.0); MEAN CELL VOLUME 74.1 fL (80-100); MEAN CORPUSCULAR HEMOGLOBIN 21.5 pg (25-34); MEAN CORPUSCULAR HGB CONC 29.1 g/dl (32-36); MEAN PLATELET VOLUME 8.5 fL (7.4-10.4); NUCLEATED RED BLOOD CELL ABS 0.03 K/uL (0-0); PLATELET COUNT 288 K/uL (130-400); RED CELL DISTRIBUTION WIDTH SD 46.3 fL (36.4-46.3); WHITE BLOOD COUNT 4.34 K/uL (4.8-10.8)
[2018-05-25 17:16] LABS: BASO % 0.5 %; BASO ABS # 0.02 K/uL (0-0.2); EOS % 1.4 %; EOS ABS # 0.06 K/uL (0-0.5); IG# 0.01 K/uL (0.00-0.02); LYMPH % 23.7 %; LYMPH ABS # 1.03 K/uL (1.2-3.4); MONO % 8.5 %; MONO ABS # 0.37 K/uL (0.11-0.59); NEUT % 65.7 %; NEUT ABS # 2.85 K/uL (1.4-6.5)
[2018-05-25 17:18] LABS: ALBUMIN 3.1 gm/dl (3.4-5.0); ALKALINE PHOSPHATASE 74 U/L (45-117); ALT/SGPT 20 U/L (12-78); AST/SGOT 16 U/L (15-37); BLOOD UREA NITROGEN 17 mg/dl (7-18); CALCIUM 8.3 mg/dl (8.5-10.1); CARBON DIOXIDE 23 mmol/L (21-32); CREATININE 0.99 mg/dl (0.60-1.20); GLUCOSE 122 mg/dl (70-99); POTASSIUM 4.1 mmol/L (3.5-5.1); SODIUM 142 mmol/L (136-145); TOTAL PROTEIN 6.9 gm/dl (6.4-8.2)
== END | disposition home or self-care (01) ==
LOC: C.LAB 15:17
PROVIDERS: ATTEND Nurse Practitioner Family
DX: R00.2 Palpitations (principal); D64.9 Anemia, unspecified

== ENCOUNTER 2019-06-24 13:01 | Inpatient (IN) ==
[2019-06-24 13:53] LABS: Basophils # (auto) 0.01 K/uL (0-0.2); Basophils % (auto) 0.2 %; Eosinophils # (auto) 0.03 K/uL (0-0.5); Eosinophils % (auto) 0.5 %; Hematocrit (blood only) 37.2 % (37-47); Hemoglobin 12.4 g/dL (12.0-16.0); Immature Granulocytes # (auto) 0.01 K/uL (0.00-0.02); Immature Granulocytes % (auto) 0.2 %; Lymphocytes # (auto) 0.74 K/uL (1.2-3.4); Lymphocytes % (auto) 11.6 %; Mean Corpuscular Hemoglobin 31.2 pg (25-34); Mean Corpuscular Hgb Conc 33.3 g/dL (32-36); Mean Corpuscular Volume 93.7 fL (80-100); Mean Platelet Volume 9.1 fL (7.4-10.4); Monocytes # (auto) 0.49 K/uL (0.11-0.59); Monocytes % (auto) 7.7 %; Neutrophils % (auto) 79.8 %; Platelet Count 157 K/uL (130-400); RDW Standard Deviation 44.7 fL (36.4-46.3); Red Blood Count 3.97 M/uL (4.2-5.4); White Blood Count 6.38 K/uL (4.8-10.8)
--- NOTE | 2019-06-24 13:59 | XRay Report ---
XR chest 1V portable CLINICAL HISTORY: Chest Pain COMPARISON STUDY: Chest CT November 25, 2015. Chest radiograph May 25, 2018. FINDINGS: There is no pneumothorax or pleural effusion. Cardiomediastinal silhouette is stable. Inter stitial thickening is likely chronic. There is no consolidation to suggest pneumonia. No evidence for pulmonary edema. The appearance of the chest is unchanged. IMPRESSION: No acute cardiopulmonary findings. No change in appearance of the chest. Electronically signed by: Eliseo Kate M.D. 06/24/2019 1:57 PM
[2019-06-24 14:09] LABS: Albumin Level 2.9 gm/dl (3.4-5.0); BUN Creatinine Ratio 14.8 (10-20); Calcium 8.3 mg/dl (8.5-10.1); Creatinine Clr Calc Pharmacy 68.9 ml/min; Est GFR (African American) 84.1; Est GFR (Non-African American) 72.6; Potassium 3.7 mmol/L (3.5-5.1)
[2019-06-24 14:12] LABS: Albumin Globulin Ratio 0.8 (0.9-2); Bilirubin,Total 0.8 mg/dl (0.2-1); Globulin 3.7 gm/dl (2.5-4.0); Total Protein 6.6 gm/dl (6.4-8.2)
--- NOTE | 2019-06-24 15:05 | CT Scan Report ---
ABDOMEN AND PELVIS CT WITHOUT CONTRAST CT DOSE: 655.48 mGy.cm HISTORY: Left lower quadrant abdominal pain. TECHNIQUE: Multiaxial CT images of the abdomen and pelvis were performed without contrast. A dose lo wering technique was utilized adhering to the principles of ALARA. COMPARISON STUDY: Abdomen and pelvis CT 05/25/2018. FINDINGS: Bibasilar groundglass densities may represent air trapping or mild dependent change. A few punctate calcified granulomas within the lower lobes. No pneumoperitoneum. No pneumatosis. No fractur es within the visualized osseous structures. The unenhanced liver, gallbladder, kidneys, spleen, and adrenal glands are unremarkable. The pancreas is unremarkable. 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 This remains unchanged. Normal caliber abdominal aorta. Dextroscoliosis of the lumbar spine. No retroperitoneal lymphadenopathy. The bladder appears u nremarkable. No significant pelvic free fluid. Suboptimal evaluation for bowel pathology due to the l ack of intravenous and oral contrast. There is an inflamed diverticulum within the mid sigmoid colon with pericolonic fat stranding. This is consistent with acute diverticulitis. No abscess identified. Multiple punctate focus of gas adjacent to the mid sigmoid colon which may represent a diverticulum o r microperforation. This is best seen on image 284. Normal appendix. IMPRESSION: 1. Acute sigmoid diverticulitis. There is a punctate focus of gas adjacent to the mid sigmoid colon w hich could represent a small diverticulum or a focus of microperforation. No abscess identified. Foll ow-up colonoscopy is recommended once the diverticulitis has resolved to exclude the less likely poss ibility of underlying colonic lesion. 2. Additional findings as described above. Electronically signed by: Ronn Marmolejo M.D. 06/24/2019 3:04 PM
[2019-06-24] MEDS ORDERED: PIPERACILLIN/TAZOBACTAM 4.5 GM/120 ML BAG IV ONE (15:28)
[2019-06-24] MEDS ORDERED: PIPERACILL/TAZOBAC CONSULT ACTIVE PRN ×2 (15:28→17:56)
[2019-06-24] MEDS ORDERED: ACETAMINOPHEN 325 MG TAB PO PRN (17:56)
[2019-06-24] MEDS ORDERED: ZOLPIDEM TARTRATE 5 MG TAB PO PRN (17:56)
--- NOTE | 2019-06-24 17:57 | Emergency Department Note ---
Entered by Nanci Hernandez acting as a scribe for Mina Clemente MD ED Provider Note CHIEF COMPLAINT: Fever and cough HISTORY OF PRESENT ILLNESS: The patient is a 74 year old female with past medical history of PAD, GERD, HTN, anemia, left sided chest pain, PE, hiatal hernia, goiter, who presents to the Emergency Room with complaints of constant fever and cough that started last night. The patient reports she could not sleep last night because her temperature was up to 100 degree. She notes she took two pills of Tylenol last night but her temperature this morning was 101.5 degrees. The patient states she could not get her blood pressure below 150/100 despite taking 2 blood pressure medications. The patient notes she has a cough and is concerned about a blood clot since she had similar symptoms when she had one in 2015. She additionally reports she has lower abdominal pain and constipation. Pt denies LOC, headache, chills, diaphoresis, visual changes, neck pain, chest pain, breathing difficulties, nausea, vomiting, back pain, melena, hematochezia, urinary symptoms, numbness, weakness, lymphadenopathy, rash, or other complaints. REVIEW OF SYSTEMS: See HPI for pertinent positives and negatives. A total of ten systems were reviewed and were otherwise negative. PMHx/PSHx: PAD PE GERD HTN Anemia Hiatal hernia SOCIAL HISTORY: Patient lives at home. PHYSICAL EXAM: GENERAL: Awake, alert, well-appearing, in no distress HENT: Normocephalic, atraumatic. Oropharynx unremarkable. EYES: PERRL. Normal conjunctiva. Sclera non-icteric. NECK: Inspection normal. Non-tender. Supple. No nuchal rigidity. FROM. No masses. RESPIRATORY: Clear to auscultation. No wheezes. No rales. Normal respiratory effort. CARDIAC: Normal rate. Normal rhythm. No murmurs. No rubs. Extremities warm and well perfused. Pulses equal. No JVD. GI: Soft, non-distended. Left lower quadrant tenderness to palpation. No rebound or guarding. No masses. RECTAL: Deferred. MUSCULOSKELETAL: Atraumatic. Chest examination reveals no tenderness. The back is symmetrical on inspection without obvious abnormality. There is no CVA tenderness to palpation. No joint edema. LOWER EXTREMITIES: Calves are equal size bilaterally and non-tender. No edema. No discoloration. NEURO: Normal sensorium. No sensory or motor deficits noted. SKIN: No rash or jaundice noted. EMERGENCY DEPARTMENT COURSE: 1310: Past medical records reviewed. The patient had a PCP visit on June 21. 1315: The patient was evaluated in room C2B, and a complete history and physical examination were performed. 1529: I checked on the patient. Put a call out for surgery. 1534: I discussed the patients case with Dr. Orellana, Surgery. He will follow along in consolation and will admit to medicine for diverticulitis with perforation 1615: I spoke to Dr. Retana, [facility] Hospitalist, about admitting the patient medically. MEDICAL DECISION MAKING: C2 Triage Nursing notes reviewed and agree them. The patient's history was concerning for fever and cough. Currently anticoagulated. History of PE. Differential diagnosis: Etiologies such as pharyngitis, pneumonia, influenza,meningitis, urinary tract infection, sepsis, bacteremia, viral syndrome, intra-abdominal process, PE, as well as others were entertained. Physical examination: As above. No stigmata of DVT. Patient's blood pressure was mildly elevated but improved. She was counseled on this and will need follow-up. ER treatment provided: IV Zosyn Diagnostics interpreted by me: The labs revealed an unremarkable CBC and chemistry panel. Imaging studies: CT scan of the abdomen pelvis is concerning for diverticulitis. Possible microperforation. Given the diverticulitis and microperforation she will need IV antibiotics and treatment in the [place] this would explain her slight change in bowel habits, fever, and left lower quadrant pain. Chest x-ray did not reveal any abnormality within the chest to explain her cough. Her PCP recently changed her from lisinopril to losartan because of cough. PE seems unlikely as the patient is not tachycardic. She has no shortness of breath or chest symptoms. The patient also is anticoagulated. Consultation: A consultation was placed with general surgeon on-call, Dr. Orellana. The case was discussed. He agreed with the IV Zosyn and conservative management. No surgical intervention was recommended. He agreed with medicine admission. A consultation was placed with the hospitalist service.. The case was discussed and diagnostics were reviewed. The patient was evaluated in the ER for further treatment. IMPRESSION: Diverticulitis with perforation Fever Cough PLAN: Admit The scribe's documentation has been prepared under my direction and personally reviewed by me in its entirety. I confirm that the note above accurately reflects all work, treatment, procedures, and medical decision making performed by me. Impression & Plan Diverticulitis of intestine with perforation, Fever, Cough Past Med/Surg History Medical History HTN (hypertension) GERD (gastroesophageal reflux disease) Hepatitis A A CHILD Hyperlipidemia Hypertension Hyperthyroidism On anticoagulant therapy Pulmonary emboli HX OF IN 2015 Surgical History H/O left cataract extraction History of carpal tunnel release History of colonoscopy History of tonsillectomy Family History Other Family history non-contributory Social History Preferred Language: Urdu Communication Ability: Effective Region Manager Required: No Beliefs That Will Affect Care: None Current Living Situation: Spouse Feels Safe at Home: Yes Smoking Status: Never smoker Second Hand Exposure: No ; Hx Alcohol Use: No Hx Substance Use: No Results & Data Vital Signs Vital Signs - 24 hr 06/24/19 13:04 06/24/19 13:35 06/24/19 14:00 Temperature 36.9 C Temperature Source Oral Sepsis Recent Fever Within 48 Hours No Sepsis New/Unexplained Change in Mental Status No Sepsis Action Taken by Nursing No Action Required Pulse Rate 50 L 87 83 Pulse Rate [Apical] Pulse Rate from SpO2 Sensor 89 77 Pulse Rhythm [Apical] Respiratory Rate 18 25 H 20 Respiratory Effort / Characteristics Non-Labored Spontaneous Respiratory Depth Normal Respiratory Pattern Regular Blood Pressure 129/92 133/75 126/66 Blood Pressure [Right Arm] Blood Pressure Mean 104 94 86 Blood Pressure Mean [Right Arm] Blood Pressure Position Sitting Pulse Oximetry 99 96 95 Oxygen Delivery Method Room Air 06/24/19 14:30 06/24/19 15:51 06/24/19 15:53 Temperature Temperature Source Sepsis Recent Fever Within 48 Hours Sepsis New/Unexplained Change in Mental Status Sepsis Action Taken by Nursing Pulse Rate 84 85 78 Pulse Rate [Apical] Pulse Rate from SpO2 Sensor 78 81 78 Pulse Rhythm [Apical] Respiratory Rate 21 20 18 Respiratory Effort / Characteristics Respiratory Depth Respiratory Pattern Blood Pressure 122/82 147/89 H Blood Pressure [Right Arm] Blood Pressure Mean 95 108 Blood Pressure Mean [Right Arm] Blood Pressure Position Pulse Oximetry 95 99 98 Oxygen Delivery Method 06/24/19 16:00 06/24/19 16:30 06/24/19 17:00 Temperature Temperature Source Sepsis Recent Fever Within 48 Hours Sepsis New/Unexplained Change in Mental Status Sepsis Action Taken by Nursing Pulse Rate 78 71 Pulse Rate [Apical] 73 Pulse Rate from SpO2 Sensor 82 73 Pulse Rhythm [Apical] Regular Respiratory Rate 18 18 17 Respiratory Effort / Characteristics Non-Labored Spontaneous Respiratory Depth Normal Respiratory Pattern Regular Blood Pressure 145/85 H 137/81 Blood Pressure [Right Arm] 134/91 Blood Pressure Mean 105 99 Blood Pressure Mean [Right Arm] 105 Blood Pressure Position Pulse Oximetry 99 97 99 Oxygen Delivery Method Room Air Home Medications Current Medication List: was personally reviewed by me Laboratory Data Attestation: I reviewed the patient's lab results. Result diagrams: 06/24/19 13:39 06/24/19 13:39 Lab Results 06/24/19 06/24/19 Range/Units 13:39 13:39 WBC 6.38 (4.8-10.8) K/uL RBC 3.97 L (4.2-5.4) M/uL Hgb 12.4 (12.0-16.0) g/dL Hct 37.2 (37-47) % MCV 93.7 (80-100) fL MCH 31.2 (25-34) pg MCHC 33.3 (32-36) g/dL RDW Std Deviation 44.7 (36.4-46.3) fL RDW Coeff of Vanessa 13.0 (11.5-14.5) % Plt Count 157 (130-400) K/uL MPV 9.1 (7.4-10.4) fL Immature Gran % (Auto) 0.2 % Neut % (Auto) 79.8 % Lymph % (Auto) 11.6 % [place] % (Auto) 7.7 % Eos % (Auto) 0.5 % Baso % (Auto) 0.2 % Immature Gran # (Auto) 0.01 (0.00-0.02) K/uL Neut # (Auto) 5.10 (1.4-6.5) K/uL Lymph # (Auto) 0.74 L (1.2-3.4) K/uL [place] # (Auto) 0.49 (0.11-0.59) K/uL Eos # (Auto) 0.03 (0-0.5) K/uL Baso # (Auto) 0.01 (0-0.2) K/uL Sodium 140 (136-145) mmol/L Potassium 3.7 (3.5-5.1) mmol/L Chloride 110 H (98-107) mmol/L Carbon Dioxide 23 (21-32) mmol/L Anion Gap 7.0 (3-11) BUN 12 (7-18) mg/dl Creatinine 0.81 (0.6-1.2) mg/dl Est Cr Clr Drug Dosing 68.9 ml/min Est GFR ( Amer) 84.1 Est GFR (Non-Af Amer) 72.6 BUN/Creatinine Ratio 14.8 (10-20) Glucose 162 H (70-99) mg/dl Calcium 8.3 L (8.5-10.1) mg/dl Total Bilirubin 0.8 (0.2-1) mg/dl AST 10 L (15-37) U/L ALT 15 (12-78) U/L Alkaline Phosphatase 86 (45-117) U/L Total Protein 6.6 (6.4-8.2) gm/dl Albumin 2.9 L (3.4-5.0) gm/dl Globulin 3.7 (2.5-4.0) gm/dl Albumin/Globulin Ratio 0.8 L (0.9-2) Administered Medications Discontinued Medications Piperacillin Sod/Tazobactam Sod (Zosyn) 4.5 gm in 120 mls @ 240 mls/hr IV NOW ONE Stop: 06/24/19 15:57 Last Infusion: 06/24/19 16:47 Dose: 0 mls/hr Documented by: [id number] Admin: 06/24/19 15:53 Dose: 240 mls/hr Documented by: [id number] Imaging Data Radiologist's Impression: Radiology results as stated below per my review and the radiologist's interpretation: XR chest 1V portable CLINICAL HISTORY: Chest Pain COMPARISON STUDY: Chest CT November 25, 2015. Chest radiograph May 25, 2018. FINDINGS: There is no pneumothorax or pleural effusion. Cardiomediastinal silhouette is stable. Interstitial thickening is likely chronic. There is no consolidation to suggest pneumonia. No evidence for pulmonary edema. The appearance of the chest is unchanged. IMPRESSION: No acute cardiopulmonary findings. No change in appearance of the chest. Electronically signed by: Eliseo Kate M.D. 06/24/2019 1:57 PM ABDOMEN AND PELVIS CT WITHOUT CONTRAST CT DOSE: 655.48 mGy.cm HISTORY: Left lower quadrant abdominal pain. TECHNIQUE: Multiaxial CT images of the abdomen and pelvis were performed without contrast. A dose lowering technique was utilized adhering to the principles of ALARA. COMPARISON STUDY: Abdomen and pelvis CT 05/25/2018. FINDINGS: Bibasilar groundglass densities may represent air trapping or mild dependent change. A few punctate calcified granulomas within the lower lobes. No pneumoperitoneum. No pneumatosis. No fractures within the visualized osseous structures. The unenhanced liver, gallbladder, kidneys, spleen, and adrenal glands are unremarkable. The pancreas is unremarkable. 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 This remains unchanged. Normal caliber abdominal aorta. Dextroscoliosis of the lumbar spine. No retroperitoneal lymphadenopathy. The bladder appears unremarkable. No significant pelvic free fluid. Suboptimal evaluation for bowel pathology due to the lack of intravenous and oral contrast. There is an inflamed diverticulum within the mid sigmoid colon with pericolonic fat stranding. This is consistent with acute diverticulitis. No abscess identified. Multiple punctate focus of gas adjacent to the mid sigmoid colon which may represent a diverticulum or microperforation. This is best seen on image 284. Normal appendix. IMPRESSION: 1. Acute sigmoid diverticulitis. There is a punctate focus of gas adjacent to the mid sigmoid colon which could represent a small diverticulum or a focus of microperforation. No abscess identified. Follow-up colonoscopy is recommended once the diverticulitis has resolved to exclude the less likely possibility of underlying colonic lesion. 2. Additional findings as described above. Electronically signed by: Ronn Marmolejo M.D. 06/24/2019 3:04 PM ECG Data Attestation: I personally reviewed and interpreted this ECG as follows: Indication: other (hypertension) Rate (beats per minute): 88 Rhythm: other (Sinus with PAC's) Findings: + T-wave inversion (Inferior); no PVC Comparison ECG Date: from (05/27/18) Change: the following changes noted (Inferior T-wave inversions are old. PAC's are new. ) Blood Pressure Blood Pressure Findings: Elevated blood pressure Blood Pressure Disposition: further management by hospitalist Discharge Plan Visit Data Chief Complaint: Fever Stated Complaint: TEMP 101.5 - BLOOD PRESSURE 150/100 WITH MEDS ED Provider: Mina Clemente Discharge Problem: Diverticulitis of intestine with perforation, Fever, Cough Patient Disposition: Being Evaluated by Hospitalist Forms Stand Alone Forms: My [facility] Prescriptions Prescriptions: No Action omeprazole 40 mg capsule,delayed release(DR/EC) 40 mg PO DAILY Qty: 30 RF: 2 magnesium oxide 200 mg magnesium tablet 200 mg PO BID RF: 0 clobetasol 0.05 % ointment 1 appln TOP .COMPLEX Qty: 15 RF: 0 Xarelto 20 mg tablet 20 mg PO DAILY Qty: 90 RF: 3 atorvastatin 10 mg tablet 10 mg PO DAILY Qty: 30 RF: 2 losartan 25 mg tablet 25 mg PO DAILY Qty: 30 RF: 3 multivitamin [Multiple Vitamins] Tablet 1 tab PO QAM RF: 0 metoprolol succinate 50 mg tablet extended release 24 hr 50 mg PO BID RF: 0 calcium carbonate [Calcium 600] 600 mg calcium (1,500 mg) Tablet 600 mg PO BID RF: 0 docusate sodium 100 mg capsule 100 mg PO BID RF: 0 difluprednate 0.05 % drops 1 drp OPB BID RF: 0 Probiotic Complex 25 billion cell -100 mg capsule 100 mg PO BID RF: 0 ergocalciferol (vitamin D2) [Vitamin D2] 50,000 unit capsule 50,000 unit PO 2XWK RF: 0 methimazole 5 mg tablet 10 mg PO DAILY RF: 0 Referrals Referrals: Koby Ambrocio III, CRNP [Primary Care Provider] - Discharge Problem: Diverticulitis of intestine with perforation Qualifiers: Diverticulitis site: large intestine Diverticulitis bleeding: without bleeding Qualified Code(s): K57.20 - Diverticulitis of large intestine with perforation and abscess without bleeding Fever Qualifiers: Fever type: unspecified Qualified Code(s): R50.9 - Fever, unspecified The scribe's documentation has been prepared under my direction and personally reviewed by me in its entirety. I confirm that the note above accurately reflects all work, treatment, procedures, and medical decision making performed by me.
[2019-06-24] MEDS ORDERED: MoRPHine SULFATE 2 MG/ML CARP IV PRN (18:04)
[2019-06-24] MEDS ORDERED: Heparin IV Standard *NO* Bolus IV SCH (18:10)
[2019-06-24] MEDS ORDERED: CLOBETASOL PROPIONATE 0.05% OINT 15 GM TUBE EXT PRN (18:15)
--- NOTE | 2019-06-24 18:43 | History & Physical Report ---
Date of Service June 24, 2019 Assessment & Plan (1) Diverticulitis of intestine with perforation: Admit to telemetry N.p.o. for bowel rest IV fluid hydration Continue Zosyn IV, can be switched upon discharge to Cipro/Flagyl Repeat CT scan abdomen with contrast prior to discharge Surgical consult appreciated, Dr. Orellana will follow up with the patient Hold Xarelto for now and start heparin drip in case patient deteriorates and surgical intervention is required (2) Fever: Likely secondary to above We will obtain blood cultures (3) Multiple thyroid nodules: Graves' disease Continue methimazole (4) History of pulmonary embolism: Hold Xarelto and start patient on (5) GERD (gastroesophageal reflux disease): Continue Protonix oral for now (6) HTN (hypertension): Continue blood pressure meds History of Present Illness 74 years old female with past medical history of essential hypertension, dyslipidemia, GERD, hyper thyroidism on methimazole, she also has past medical history of DVT in 2015 currently on Xarelto. Patient was in her regular state of health until 2 days prior to admission where she started having fever, the highest fever she got is 101.5. Her fever was associated with left lower quadrant pain, describes pain as squeezing or cramping. She also had a little bit change in her bowel movement, her stool became solid and very small pieces. She usually takes MiraLAX/probiotic/magnesium to facilitate going to the bathroom. Denies any diarrhea or vomiting or nausea. Presented to the hospital for evaluation of her lower abdominal pain, that was at the most 5/[address] scan abdomen done in the ED showed the following 1. Acute sigmoid diverticulitis. There is a punctate focus of gas adjacent to the mid sigmoid colon which could represent a small diverticulum or a focus of microperforation. No abscess identified. Follow-up colonoscopy is recommended once the diverticulitis has resolved to exclude the less likely possibility of underlying colonic lesion. 2. Additional findings as described above. Primary Care Provider: Koby Ambrocio, III, EVIE Allergies Allergy/AdvReac Type Severity Reaction Status Date / Time lisinopril AdvReac Intermediate Cough Verified 06/24/19 13:50 Home Medications Home Medications Medication Instructions Recorded Confirmed Type calcium carbonate [Calcium 600] 600 mg PO BID 06/16/18 06/24/19 History difluprednate 1 drp OPB BID 06/16/18 06/24/19 History docusate sodium 100 mg PO BID 06/16/18 06/24/19 History metoprolol succinate 50 mg PO BID 06/16/18 06/24/19 History multivitamin [Multiple Vitamins] 1 tab PO QAM 06/16/18 06/24/19 History clobetasol 0.05 % topical ointment 1 appln TOP .COMPLEX #15 gm 05/11/19 06/24/19 Rx magnesium 200 mg (as magnesium 200 mg PO BID tab 05/11/19 06/24/19 History oxide) tablet omeprazole 40 mg capsule,delayed 40 mg PO DAILY #30 cap 05/11/19 06/24/19 Rx release rivaroxaban 20 mg tablet 20 mg PO DAILY #90 tab 05/11/19 06/24/19 Rx L.acidophilus-B.bifidum-B.animalis-FOS 100 mg PO BID cap 06/06/19 06/24/19 History 25 billion cell-100 mg capsule ergocalciferol (vitamin D2) 50,000 50,000 unit PO 2XWK cap 06/06/19 06/24/19 History unit capsule atorvastatin 10 mg tablet 10 mg PO DAILY #30 tab 06/14/19 06/24/19 Rx losartan 25 mg tablet 25 mg PO DAILY #30 tab 06/23/19 06/24/19 Rx methimazole 10 mg PO DAILY 06/24/19 06/24/19 History Past Med/Surg History Medical History HTN (hypertension) GERD (gastroesophageal reflux disease) Hepatitis A A CHILD Hyperlipidemia Hypertension Hyperthyroidism On anticoagulant therapy Pulmonary emboli HX OF IN 2015 Surgical History H/O left cataract extraction History of carpal tunnel release History of colonoscopy History of tonsillectomy Family History Other Family history non-contributory Social History Preferred Language: Hungarian Communication Ability: Effective Heel Shaper Required: No Beliefs That Will Affect Care: None Current Living Situation: Spouse Feels Safe at Home: Yes Smoking Status: Never smoker Second Hand Exposure: No ; Hx Alcohol Use: No Hx Substance Use: No Review of Systems Review of Systems: Review of system Constitutional: Fatigue and fever Eyes: no blurring of vision / no eye pain / no discharge / no redness ENT: no hearing loss / no epistaxis /no swallowing problems Respiratory: no cough / no wheezing / no SOB / no hemoptysis Cardiovascular: no Chest pain / no lower extremity edema / no palpitation Abdomen: Lower abdominal pain, stool became solid small pieces, no vomiting Musculoskeletal: no joint pain / no muscle pain / no joint swelling Genitourinary: no dysuria / no incontinence / no urinary retention Neurologic: no focal weakness / no numbness/tingling / no ataxia Psychiatric: no depression symptoms / no anxiety / no insomnia Endocrine: no excessive thirst / no excessive urination Hematologic: no abnormal bleeding / no bruising / no LN swelling Skin: No rash / no pallor Physical Exam Physical Exam: Physical examination General patient appears to be comfortable, not in acute distress HEENT: Atraumatic , normocephalic /no jaundice /no pallor /anicteric /no dry mucous membrane /normal external ear inspection Neck: Supple /no swelling /central trach Heart: S1/S2 normal/regular rate and rhythm/no gallop /no rub /no murmur Lungs: Clear to auscultation bilaterally/normal chest with expansion/no rhonchi/no rales/no wheezing/no use of accessory muscles of respiration Abdomen: Tenderness in mid and lower abdomen, mainly pronounced in left lower quadrant, no rebound/no organomegaly/no pulsatile mass Musculoskeletal: No swelling/no edema/no tenderness/normal range of motion Neuro exam: Awake alert oriented 3/cranial nerves II through XII appear to be intact/sensation intact/moves all extremities/no abnormal movements Psychiatric evaluation: No depressed mood/normal affect Skin: No rash on exposed skin area/no erythema Extremity: Normal pulse/no pitting edema/no clubbing or cyanosis Endocrine/lymphatic: No obvious lymphadenopathy /no lymphedema Results & Data Vital Signs (Past 12 Hours) Vital Signs Temp Pulse Pulse Resp BP BP Pulse Ox 06/24/19 17:00 73 17 134/91 99 06/24/19 16:30 71 18 137/81 97 06/24/19 16:00 78 18 145/85 H 99 06/24/19 15:53 78 18 98 06/24/19 15:51 85 20 147/89 H 99 06/24/19 14:30 84 21 122/82 95 06/24/19 14:00 83 20 126/66 95 06/24/19 13:35 87 25 H 133/75 96 06/24/19 13:04 36.9 C 50 L 18 129/92 99 Code Status & VTE Plan VTE Prophylaxis Plan VTE Prophylaxis will be ordered: No PG Care Time/CCT Total # of Minutes Spent Total Time Spent with Patient: 35 minutes total time spent is greater than 50% in coordination of care (as documented) at patient's floor/unit and/or counseling patient/family discussion of care with nursing staff (1) Diverticulitis of intestine with perforation Diverticulitis bleeding: without bleeding Diverticulitis site: large intestine Qualified Code(s): K57.20 - Diverticulitis of large intestine with perforation and abscess without bleeding (2) Fever Fever type: unspecified Qualified Code(s): R50.9 - Fever, unspecified
[2019-06-24] MEDS: D5NSS + 20MEQ KCL 20 MEQ/1,000 ML BAG IV SCH (20:24)
[2019-06-24] MEDS: PIPERACILLIN/TAZOBACTAM 3.375 GM in DEXTROSE 5% 100 ML IV SCH (20:25)
[2019-06-24] MEDS: MAGNESIUM OXIDE 400 MG TAB PO SCH (20:26)
[2019-06-24] MEDS: METOPROLOL SUCC 50MG EXT REL TAB PO SCH (20:27)
[2019-06-24] MEDS: HEPARIN SODIUM/DEXTROSE 25,000 UNITS/500 ML BAG IV SCH (20:44)
[2019-06-25 02:47] LABS: Basophils # (auto) 0.02 K/uL (0-0.2); Basophils % (auto) 0.4 %; Eosinophils # (auto) 0.07 K/uL (0-0.5); Eosinophils % (auto) 1.3 %; Hematocrit (blood only) 36.8 % (37-47); Hemoglobin 11.9 g/dL (12.0-16.0); Immature Granulocytes # (auto) 0.01 K/uL (0.00-0.02); Immature Granulocytes % (auto) 0.2 %; Lymphocytes # (auto) 1.08 K/uL (1.2-3.4); Lymphocytes % (auto) 20.8 %; Mean Corpuscular Hemoglobin 30.7 pg (25-34); Mean Corpuscular Hgb Conc 32.3 g/dL (32-36); Mean Corpuscular Volume 94.8 fL (80-100); Mean Platelet Volume 9.3 fL (7.4-10.4); Monocytes # (auto) 0.53 K/uL (0.11-0.59); Monocytes % (auto) 10.2 %; Neutrophils # (auto) 3.48 K/uL (1.4-6.5); Neutrophils % (auto) 67.1 %; Platelet Count 152 K/uL (130-400); RDW Coefficient of Variation 13.2 % (11.5-14.5); RDW Standard Deviation 45.8 fL (36.4-46.3); Red Blood Count 3.88 M/uL (4.2-5.4); White Blood Count 5.19 K/uL (4.8-10.8)
[2019-06-25 03:06] LABS: Albumin Level 2.7 gm/dl (3.4-5.0); BUN Creatinine Ratio 9.6 (10-20); Creatinine Clr Calc Pharmacy 61.3 ml/min; Est GFR (African American) 73.1; Magnesium 2.2 mg/dl (1.8-2.4); Potassium 4.2 mmol/L (3.5-5.1)
[2019-06-25 03:07] LABS: Partial Thromboplastin Ratio 2.5
[2019-06-25 03:17] LABS: Albumin Globulin Ratio 0.7 (0.9-2); Bilirubin,Total 0.9 mg/dl (0.2-1); Globulin 3.8 gm/dl (2.5-4.0); Thyroid Stimulating Hormone 1.78 uIu/ml (0.300-4.500); Total Protein 6.5 gm/dl (6.4-8.2)
[2019-06-25 04:12] LABS: Partial Thromboplastin Time 68.3 Seconds (21.0-31.0)
[2019-06-25 04:35] LABS: Appearance Urine Clear (Clear); Bacteria Urine Automated Negative (Negative); Bilirubin Urine Negative (Negative); Blood Urine 1+ (Negative); Color Urine Yellow; Epithelial Cell Urine Auto >30 /lpf (0-5); Glucose Urine UA Negative (Negative); Ketones Urine Negative (Negative); Leukocyte Esterase Urine 2+ (Negative); Nitrite Urine Negative (Negative); Protein Urine Negative (Negative); Specific Gravity Urine 1.016 (1.000-1.030); Urobilinogen Urine Negative (Negative); WBC Urine Automated >30 /hpf (0-5); pH Urine 5.5 (4.5-7.5)
[2019-06-25] MEDS: PIPERACILLIN/TAZOBACTAM 3.375 GM in DEXTROSE 5% 100 ML IV SCH ×3 (06:03→21:37)
[2019-06-25] MEDS: LOSARTAN POTASSIUM 25 MG TAB PO SCH (08:58)
[2019-06-25] MEDS: MULTIVITAMIN TAB PO SCH (08:58)
[2019-06-25] MEDS: METOPROLOL SUCC 50MG EXT REL TAB PO SCH ×2 (08:58→20:27)
[2019-06-25] MEDS: methIMAzole 5 MG TABLET PO SCH (08:58)
[2019-06-25] MEDS: PANTOprazole 40 MG TAB PO SCH (08:58)
[2019-06-25] MEDS: ATORVASTATIN 10 MG TAB PO SCH (08:59)
[2019-06-25] MEDS: MAGNESIUM OXIDE 400 MG TAB PO SCH ×2 (08:59→20:27)
[2019-06-25] MEDS: D5NSS + 20MEQ KCL 20 MEQ/1,000 ML BAG IV SCH (10:27)
[2019-06-25 10:35] LABS: Partial Thromboplastin Ratio 2.9
[2019-06-25 10:37] LABS: Partial Thromboplastin Time 78.5 Seconds (21.0-31.0)
--- NOTE | 2019-06-25 12:43 | Surgery Consultation ---
Date of Consultation June 25, 2019 Assessment & Plan (1) Diverticulitis of intestine with perforation: This patient has acute diverticulitis in the sigmoid colon with a very small area of microperforation without diffuse peritonitis that from a symptomatic standpoint is already improving on conservative measures with intravenous antibiotics. I would continue with antibiotics. There is no diffuse peritonitis so I do not feel there is need for immediate surgical intervention. We will continue to follow. History of Present Illness Requesting Physician: Dane Foster DO Attending Physician: Dane Foster DO History of Present Illness I been asked by Dr. Foster to see this 74-year-old female who presented to the emergency room with a complaint of lower mid and left lower quadrant abdominal pain. This was associated with fever as high as 101.5. The discomfort began 2 days ago. She is never had pain like this before. The pain does not radiate. She had no nausea or vomiting. She had no diarrhea. Her stool shape had changed to what she described a small pieces but there was no melena or hemato chezia. Since admission and being started on antibiotics the pain which if she labeled the worst pain that she had is a 10 is now down to a 2. She has not had any nausea or vomiting since admission. She has never had an episode of diverticulitis in the past. Allergies Allergy/AdvReac Type Severity Reaction Status Date / Time lisinopril AdvReac Intermediate Cough Verified 06/24/19 13:50 Home Medications Home Medications Medication Instructions Recorded Confirmed Type calcium carbonate [Calcium 600] 600 mg PO BID 06/16/18 06/24/19 History difluprednate 1 drp OPB BID 06/16/18 06/24/19 History docusate sodium 100 mg PO BID 06/16/18 06/24/19 History metoprolol succinate 50 mg PO BID 06/16/18 06/24/19 History multivitamin [Multiple Vitamins] 1 tab PO QAM 06/16/18 06/24/19 History clobetasol 0.05 % topical ointment 1 appln TOP .COMPLEX #15 gm 05/11/19 06/24/19 Rx magnesium 200 mg (as magnesium 200 mg PO BID tab 05/11/19 06/24/19 History oxide) tablet omeprazole 40 mg capsule,delayed 40 mg PO DAILY #30 cap 08/08/19 09/21/19 Rx release rivaroxaban 20 mg tablet 20 mg PO DAILY #90 tab 05/11/19 06/24/19 Rx L.acidophilus-B.bifidum-B.animalis-FOS 100 mg PO BID cap 06/06/19 06/24/19 History 25 billion cell-100 mg capsule ergocalciferol (vitamin D2) 50,000 50,000 unit PO 2XWK cap 06/06/19 06/24/19 History unit capsule atorvastatin 10 mg tablet 10 mg PO DAILY #30 tab 06/14/19 06/24/19 Rx losartan 25 mg tablet 25 mg PO DAILY #30 tab 06/23/19 06/24/19 Rx methimazole 10 mg PO DAILY 06/24/19 06/24/19 History Patient History Medical History HTN (hypertension) GERD (gastroesophageal reflux disease) Hepatitis A A CHILD Hyperlipidemia Hypertension Hyperthyroidism On anticoagulant therapy Pulmonary emboli HX OF IN 2014 Surgical History H/O right cataract extraction S/P hemorrhoidectomy H/O left cataract extraction History of carpal tunnel release History of colonoscopy History of tonsillectomy Family History Other Family history non-contributory Social History Preferred Language: Yoruba Communication Ability: Effective Propeller Inspector Required: No Beliefs That Will Affect Care: None Current Living Situation: Spouse Feels Safe at Home: Yes Smoking Status: Never smoker Second Hand Exposure: No ; Hx Alcohol Use: No Hx Substance Use: No Physical Exam Constitutional: no acute distress Neck: trachea midline Respiratory: normal respiratory effort, lungs clear to auscultation Cardiovascular: Rate/Rhythm: regular rate and regular rhythm Gastrointestinal (Abdomen): Inspection/Auscultation: abdomen normal to inspection; abdomen not distended Percussion/Palpation: + abdomen tender (Very mild left lower quadrant and lower midline tenderness to deep palpation) and abdomen soft; no abdominal mass Skin: no rashes, warm and dry Lymphatic: no cervical lymphadenopathy Results & Data Vital Signs (Past 12 Hours) Vital Signs Temp Pulse Pulse Resp BP Pulse Ox 06/25/19 11:35 36.5 C 73 20 155/89 H 97 06/25/19 07:40 36.6 C 78 18 122/69 98 06/25/19 07:06 73 06/25/19 04:00 36.7 C 67 18 121/81 97 Laboratory Results 06/25/19 06/25/19 06/25/19 Range/Units 10:01 04:24 02:32 WBC (4.8-10.8) K/uL RBC (4.2-5.4) M/uL Hgb (12.0-16.0) g/dL Hct (37-47) % MCV (80-100) fL MCH (25-34) pg MCHC (32-36) g/dL RDW Std Deviation (36.4-46.3) fL RDW Coeff of Vanessa (11.5-14.5) % Plt Count (130-400) K/uL MPV (7.4-10.4) fL Immature Gran % (Auto) % Neut % (Auto) % Lymph % (Auto) % [place] % (Auto) % Eos % (Auto) % Baso % (Auto) % Immature Gran # (Auto) (0.00-0.02) K/uL Neut # (Auto) (1.4-6.5) K/uL Lymph # (Auto) (1.2-3.4) K/uL [place] # (Auto) (0.11-0.59) K/uL Eos # (Auto) (0-0.5) K/uL Baso # (Auto) (0-0.2) K/uL APTT 78.5 H* 68.3 H* (21.0-31.0) Seconds PTT Ratio 2.9 2.5 Sodium (136-145) mmol/L Potassium (3.5-5.1) mmol/L Chloride (98-107) mmol/L Carbon Dioxide (21-32) mmol/L Anion Gap (3-11) BUN (7-18) mg/dl Creatinine (0.6-1.2) mg/dl Est Cr Clr Drug Dosing ml/min Est GFR ( Amer) Est GFR (Non-Af Amer) BUN/Creatinine Ratio (10-20) Glucose (70-99) mg/dl Calcium (8.5-10.1) mg/dl Magnesium (1.8-2.4) mg/dl Total Bilirubin (0.2-1) mg/dl AST (15-37) U/L ALT (12-78) U/L Alkaline Phosphatase (45-117) U/L Total Protein (6.4-8.2) gm/dl Albumin (3.4-5.0) gm/dl Globulin (2.5-4.0) gm/dl Albumin/Globulin Ratio (0.9-2) TSH (0.300-4.500) uIu/ml Urine Color Yellow Urine Appearance Clear (Clear) Urine pH 5.5 (4.5-7.5) Ur Specific [place] 1.016 (1.000-1.030) Urine Protein Negative (Negative) Urine Glucose (UA) Negative (Negative) Urine Ketones Negative (Negative) Urine Blood 1+ H (Negative) Urine Nitrite Negative (Negative) Urine Bilirubin Negative (Negative) Urine Urobilinogen Negative (Negative) Ur Leukocyte Esterase 2+ H (Negative) Urine WBC (Auto) >30 H (0-5) /hpf Urine RBC (Auto) 5-10 H (0-4) /hpf U Hyaline Cast (Auto) 1-5 (0-5) /lpf U Epithel Cells (Auto) >30 H (0-5) /lpf Urine Bacteria (Auto) Negative (Negative) 06/25/19 06/25/19 06/24/19 Range/Units 02:32 02:32 13:39 WBC 5.19 (4.8-10.8) K/uL RBC 3.88 L (4.2-5.4) M/uL Hgb 11.9 L (12.0-16.0) g/dL Hct 36.8 L (37-47) % MCV 94.8 (80-100) fL MCH 30.7 (25-34) pg MCHC 32.3 (32-36) g/dL RDW Std Deviation 45.8 (36.4-46.3) fL RDW Coeff of Vanessa 13.2 (11.5-14.5) % Plt Count 152 (130-400) K/uL MPV 9.3 (7.4-10.4) fL Immature Gran % (Auto) 0.2 % Neut % (Auto) 67.1 % Lymph % (Auto) 20.8 % [place] % (Auto) 10.2 % Eos % (Auto) 1.3 % Baso % (Auto) 0.4 % Immature Gran # (Auto) 0.01 (0.00-0.02) K/uL Neut # (Auto) 3.48 (1.4-6.5) K/uL Lymph # (Auto) 1.08 L (1.2-3.4) K/uL [place] # (Auto) 0.53 (0.11-0.59) K/uL Eos # (Auto) 0.07 (0-0.5) K/uL Baso # (Auto) 0.02 (0-0.2) K/uL APTT (21.0-31.0) Seconds PTT Ratio Sodium 143 140 (136-145) mmol/L Potassium 4.2 3.7 (3.5-5.1) mmol/L Chloride 111 H 110 H (98-107) mmol/L Carbon Dioxide 27 23 (21-32) mmol/L Anion Gap 5.0 7.0 (3-11) BUN 9 12 (7-18) mg/dl Creatinine 0.91 0.81 (0.6-1.2) mg/dl Est Cr Clr Drug Dosing 61.3 68.9 ml/min Est GFR ( Amer) 73.1 84.1 Est GFR (Non-Af Amer) 63.0 72.6 BUN/Creatinine Ratio 9.6 L 14.8 (10-20) Glucose 118 H 162 H (70-99) mg/dl Calcium 8.0 L 8.3 L (8.5-10.1) mg/dl Magnesium 2.2 (1.8-2.4) mg/dl Total Bilirubin 0.9 0.8 (0.2-1) mg/dl AST 11 L 10 L (15-37) U/L ALT 14 15 (12-78) U/L Alkaline Phosphatase 77 86 (45-117) U/L Total Protein 6.5 6.6 (6.4-8.2) gm/dl Albumin 2.7 L 2.9 L (3.4-5.0) gm/dl Globulin 3.8 3.7 (2.5-4.0) gm/dl Albumin/Globulin Ratio 0.7 L 0.8 L (0.9-2) TSH 1.780 (0.300-4.500) uIu/ml Urine Color Urine Appearance (Clear) Urine pH (4.5-7.5) Ur Specific [place] (1.000-1.030) Urine Protein (Negative) Urine Glucose (UA) (Negative) Urine Ketones (Negative) Urine Blood (Negative) Urine Nitrite (Negative) Urine Bilirubin (Negative) Urine Urobilinogen (Negative) Ur Leukocyte Esterase (Negative) Urine WBC (Auto) (0-5) /hpf Urine RBC (Auto) (0-4) /hpf U Hyaline Cast (Auto) (0-5) /lpf U Epithel Cells (Auto) (0-5) /lpf Urine Bacteria (Auto) (Negative) 06/24/19 Range/Units 13:39 WBC 6.38 (4.8-10.8) K/uL RBC 3.97 L (4.2-5.4) M/uL Hgb 12.4 (12.0-16.0) g/dL Hct 37.2 (37-47) % MCV 93.7 (80-100) fL MCH 31.2 (25-34) pg MCHC 33.3 (32-36) g/dL RDW Std Deviation 44.7 (36.4-46.3) fL RDW Coeff of Vanessa 13.0 (11.5-14.5) % Plt Count 157 (130-400) K/uL MPV 9.1 (7.4-10.4) fL Immature Gran % (Auto) 0.2 % Neut % (Auto) 79.8 % Lymph % (Auto) 11.6 % [place] % (Auto) 7.7 % Eos % (Auto) 0.5 % Baso % (Auto) 0.2 % Immature Gran # (Auto) 0.01 (0.00-0.02) K/uL Neut # (Auto) 5.10 (1.4-6.5) K/uL Lymph # (Auto) 0.74 L (1.2-3.4) K/uL [place] # (Auto) 0.49 (0.11-0.59) K/uL Eos # (Auto) 0.03 (0-0.5) K/uL Baso # (Auto) 0.01 (0-0.2) K/uL APTT (21.0-31.0) Seconds PTT Ratio Sodium (136-145) mmol/L Potassium (3.5-5.1) mmol/L Chloride (98-107) mmol/L Carbon Dioxide (21-32) mmol/L Anion Gap (3-11) BUN (7-18) mg/dl Creatinine (0.6-1.2) mg/dl Est Cr Clr Drug Dosing ml/min Est GFR ( Amer) Est GFR (Non-Af Amer) BUN/Creatinine Ratio (10-20) Glucose (70-99) mg/dl Calcium (8.5-10.1) mg/dl Magnesium (1.8-2.4) mg/dl Total Bilirubin (0.2-1) mg/dl AST (15-37) U/L ALT (12-78) U/L Alkaline Phosphatase (45-117) U/L Total Protein (6.4-8.2) gm/dl Albumin (3.4-5.0) gm/dl Globulin (2.5-4.0) gm/dl Albumin/Globulin Ratio (0.9-2) TSH (0.300-4.500) uIu/ml Urine Color Urine Appearance (Clear) Urine pH (4.5-7.5) Ur Specific [place] (1.000-1.030) Urine Protein (Negative) Urine Glucose (UA) (Negative) Urine Ketones (Negative) Urine Blood (Negative) Urine Nitrite (Negative) Urine Bilirubin (Negative) Urine Urobilinogen (Negative) Ur Leukocyte Esterase (Negative) Urine WBC (Auto) (0-5) /hpf Urine RBC (Auto) (0-4) /hpf U Hyaline Cast (Auto) (0-5) /lpf U Epithel Cells (Auto) (0-5) /lpf Urine Bacteria (Auto) (Negative) Diagnostic Findings ABDOMEN AND PELVIS CT WITHOUT CONTRAST CT DOSE: 655.48 mGy.cm HISTORY: Left lower quadrant abdominal pain. TECHNIQUE: Multiaxial CT images of the abdomen and pelvis were performed without contrast. A dose lowering technique was utilized adhering to the principles of ALARA. COMPARISON STUDY: Abdomen and pelvis CT 05/25/2018. FINDINGS: Bibasilar groundglass densities may represent air trapping or mild dependent change. A few punctate calcified granulomas within the lower lobes. No pneumoperitoneum. No pneumatosis. No fractures within the visualized osseous structures. The unenhanced liver, gallbladder, kidneys, spleen, and adrenal glands are unremarkable. The pancreas is unremarkable. 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 This remains unchanged. Normal caliber abdominal aorta. Dextroscoliosis of the lumbar spine. No retroperitoneal lymphadenopathy. The bladder appears unremarkable. No significant pelvic free fluid. Suboptimal evaluation for bowel pathology due to the lack of intravenous and oral contrast. There is an inflamed diverticulum within the mid sigmoid colon with pericolonic fat stranding. This is consistent with acute diverticulitis. No abscess identified. Multiple punctate focus of gas adjacent to the mid sigmoid colon which may represent a diverticulum or microperforation. This is best seen on image 284. Normal appendix. IMPRESSION: 1. Acute sigmoid diverticulitis. There is a punctate focus of gas adjacent to the mid sigmoid colon which could represent a small diverticulum or a focus of microperforation. No abscess identified. Follow-up colonoscopy is recommended once the diverticulitis has resolved to exclude the less likely possibility of underlying colonic lesion. 2. Additional findings as described above. (1) Diverticulitis of intestine with perforation Diverticulitis bleeding: without bleeding Diverticulitis site: large intestine Qualified Code(s): K57.20 - Diverticulitis of large intestine with perforation and abscess without bleeding
[2019-06-25 15:04] LABS: Partial Thromboplastin Ratio 2.3; Partial Thromboplastin Time 62.9 Seconds (21.0-31.0)
--- NOTE | 2019-06-25 15:19 | Hospitalist Progress Note ---
Date of Service June 25, 2019 Assessment & Plan (1) Diverticulitis of intestine with perforation: transfer to medical floor, no issues on tele advance to full liquid diet, stop IV fluids continue Zosyn WBC normal, no fever, minimal pain in LLQ even with deep palpation likely transition to Augmentin tomorrow if tolerating diet likely d/c to home tomorrow afternoon if she continues to do well Dr. Orellana following, no need for surgical intervention would recommend colonoscopy in 6-8 weeks (2) Fever: Likely secondary to above blood cultures show no growth no fever since abx started (3) Multiple thyroid nodules: Graves' disease Continue methimazole (4) History of pulmonary embolism: Hold Xarelto and start patient on heparin drip stop drip on d/c and resume Xarelto (5) GERD (gastroesophageal reflux disease): Continue Protonix oral for now (6) HTN (hypertension): Continue blood pressure meds Subjective patient feeling well, far less abdominal pain WBC only 5k, no fever or chills she is hungry discussed with Dr. Orellana, no surgical indications, she can eat reviewed with patient what diverticulitis actually is explained that she should recover fully with antibiotics Review of Systems Review of Systems: All systems reviewed & are unremarkable except as noted in HPI & below Gastrointestinal: + abdominal pain (LLQ, much better) Physical Exam Constitutional: WD/WN, vitals as above Eyes: PERRL, conjunctivae normal, anicteric sclerae ENMT: external ear and nose normal, oropharynx normal Neck: trachea midline, no thyromegaly Respiratory: normal respiratory effort, lungs clear to auscultation Cardiovascular: RRR, no murmur, no edema Gastrointestinal (Abdomen): Inspection/Auscultation: abdomen normal to inspection and normal bowel sounds; abdomen not distended Percussion/P alpation: + abdomen tender (only to deep palpation in LLQ) and abdomen soft; no guarding and abdomen not rigid Musculoskeletal: no cyanosis or clubbing, extremities motor strength 5/5 Skin: no rashes, warm and dry Neurologic: patellar DTR's 2+ bilat, sensation intact and PERRL, EOMI, accommodation nl, no face palsy, no dysarthria Psychiatric: A+Ox3, euthymic affect Lymphatic: no cervical or axillary lymphadenopathy Results & Data Vital Signs (Past 12 Hours) Vital Signs Temp Pulse Pulse Resp BP Pulse Ox 06/25/19 11:35 36.5 C 73 20 155/89 H 97 06/25/19 07:40 36.6 C 78 18 122/69 98 06/25/19 07:06 73 06/25/19 04:00 36.7 C 67 18 121/81 97 Laboratory Results Laboratory Results - last 24 hr 06/25/19 06/25/19 06/25/19 02:32 02:32 02:32 WBC 5.19 RBC 3.88 L Hgb 11.9 L Hct 36.8 L MCV 94.8 MCH 30.7 MCHC 32.3 RDW Std Deviation 45.8 RDW Coeff of Vanessa 13.2 Plt Count 152 MPV 9.3 Immature Gran % (Auto) 0.2 Neut % (Auto) 67.1 Lymph % (Auto) 20.8 [place] % (Auto) 10.2 Eos % (Auto) 1.3 Baso % (Auto) 0.4 Immature Gran # (Auto) 0.01 Neut # (Auto) 3.48 Lymph # (Auto) 1.08 L [place] # (Auto) 0.53 Eos # (Auto) 0.07 Baso # (Auto) 0.02 APTT 68.3 H* PTT Ratio 2.5 Sodium 143 Potassium 4.2 Chloride 111 H Carbon Dioxide 27 Anion Gap 5.0 BUN 9 Creatinine 0.91 Est Cr Clr Drug Dosing 61.3 Est GFR ( Amer) 73.1 Est GFR (Non-Af Amer) 63.0 BUN/Creatinine Ratio 9.6 L Glucose 118 H Calcium 8.0 L Magnesium 2.2 Total Bilirubin 0.9 AST 11 L ALT 14 Alkaline Phosphatase 77 Total Protein 6.5 Albumin 2.7 L Globulin 3.8 Albumin/Globulin Ratio 0.7 L TSH 1.780 Urine Color Urine Appearance Urine pH Ur Specific [place] Urine Protein Urine Glucose (UA) Urine Ketones Urine Blood Urine Nitrite Urine Bilirubin Urine Urobilinogen Ur Leukocyte Esterase Urine WBC (Auto) Urine RBC (Auto) U Hyaline Cast (Auto) U Epithel Cells (Auto) Urine Bacteria (Auto) 06/25/19 06/25/19 06/25/19 04:24 10:01 14:31 WBC RBC Hgb Hct MCV MCH MCHC RDW Std Deviation RDW Coeff of Vanessa Plt Count MPV Immature Gran % (Auto) Neut % (Auto) Lymph % (Auto) [place] % (Auto) Eos % (Auto) Baso % (Auto) Immature Gran # (Auto) Neut # (Auto) Lymph # (Auto) [place] # (Auto) Eos # (Auto) Baso # (Auto) APTT 78.5 H* 62.9 H* PTT Ratio 2.9 2.3 Sodium Potassium Chloride Carbon Dioxide Anion Gap BUN Creatinine Est Cr Clr Drug Dosing Est GFR ( Amer) Est GFR (Non-Af Amer) BUN/Creatinine Ratio Glucose Calcium Magnesium Total Bilirubin AST ALT Alkaline Phosphatase Total Protein Albumin Globulin Albumin/Globulin Ratio TSH Urine Color Yellow Urine Appearance Clear Urine pH 5.5 Ur Specific [place] 1.016 Urine Protein Negative Urine Glucose (UA) Negative Urine Ketones Negative Urine Blood 1+ H Urine Nitrite Negative Urine Bilirubin Negative Urine Urobilinogen Negative Ur Leukocyte Esterase 2+ H Urine WBC (Auto) >30 H Urine RBC (Auto) 5-10 H U Hyaline Cast (Auto) 1-5 U Epithel Cells (Auto) >30 H Urine Bacteria (Auto) Negative Medications Administered Current Inpatient Medications Acetaminophen (Tylenol) 650 mg PO Q4H PRN PRN Reason: Pain or Fever Stop: 07/24/19 17:55 Atorvastatin Calcium (Lipitor) 10 mg PO DAILY [facility] Stop: 07/25/19 08:59 Last Admin: 06/25/19 08:59 Dose: 10 mg Documented by: Clobetasol Propionate (Clobetasol Propionate Oint) 1 appln EXT UD PRN PRN Reason: SEE DOSE INSTRUCTIONS Stop: 07/24/19 18:14 Ergocalciferol (Vitamin D2) 50,000 units PO MoWeFr@0900 [facility] Stop: 07/26/19 08:59 Potassium Chloride/Dextrose/Sod Cl (D5nss + 20meq Kcl) 20 meq in 1,000 mls @ 70 mls/hr IV .[id number] [facility] Stop: 07/24/19 18:59 Last Admin: 06/25/19 10:27 Dose: 70 mls/hr Documented by: Piperacillin Sod/Tazobactam (Sod 3.375 gm/ Dextrose) 115 mls @ 28.75 mls/hr IV Q8H [facility]; Protocol Stop: 07/04/19 21:59 Last Infusion: 06/25/19 10:22 Dose: Infused Documented by: Heparin Sodium/Dextrose (Heparin Sodium/Dextrose) 25,000 units in 500 mls @ 21 mls/hr IV .[id number] [facility]; Protocol Stop: 07/24/19 19:29 Last Titration: 06/25/19 15:12 Dose: 1,050 units/hr, 21 mls/hr Documented by: Losartan Potassium (Cozaar) 25 mg PO DAILY [facility] Stop: 07/25/19 08:59 Last Admin: 06/25/19 08:58 Dose: 25 mg Documented by: Magnesium Oxide (Mag-Ox) 200 mg PO BID [facility] Stop: 07/24/19 20:59 Last Admin: 06/25/19 08:59 Dose: 200 mg Documented by: Methimazole (Tapazole) 10 mg PO DAILY [facility] Stop: 07/25/19 08:59 Last Admin: 06/25/19 08:58 Dose: 10 mg Documented by: Metoprolol Succinate (Toprol Xl) 50 mg PO BID [facility] Stop: 07/24/19 20:59 Last Admin: 06/25/19 08:58 Dose: 50 mg Documented by: Miscellaneous (Order Awaiting Action) 1 ea N/A QS [facility] Stop: 07/25/19 00:00 Last Admin: 06/25/19 15:16 Dose: Not Given Documented by: Miscellaneous Information (Consult) 1 ea N/A UD PRN PRN Reason: Consult Stop: 07/24/19 17:55 Morphine Sulfate (Morphine Sulfate) 2 mg IV Q4H PRN PRN Reason: Pain Stop: 07/08/19 18:03 Multivitamins (Multivitamin Tab) 1 tab PO QAM [facility] Stop: 07/25/19 08:59 Last Admin: 06/25/19 08:58 Dose: 1 tab Documented by: Pantoprazole Sodium (Protonix) 40 mg PO DAILY [facility] Stop: 07/25/19 08:59 Last Admin: 06/25/19 08:58 Dose: 40 mg Documented by: Zolpidem Tartrate (Ambien) 5 mg PO HS PRN PRN Reason: Sleep Stop: 07/24/19 17:55 PG Care Time/CCT Total # of Minutes Spent Total Time Spent with Patient: Total time spent is greater than 50% in coordination of care (as documented) at patient's floor/unit and/or counseling patient: (1) Fever Fever type: unspecified Qualified Code(s): R50.9 - Fever, unspecified (2) Diverticulitis of intestine with perforation Diverticulitis bleeding: without bleeding Diverticulitis site: large intestine Qualified Code(s): K57.20 - Diverticulitis of large intestine with perforation and abscess without bleeding
[2019-06-25] MEDS: HEPARIN SODIUM/DEXTROSE 25,000 UNITS/500 ML BAG IV SCH (19:23)
[2019-06-26] MEDS: PIPERACILLIN/TAZOBACTAM 3.375 GM in DEXTROSE 5% 100 ML IV SCH (06:05)
[2019-06-26 06:32] LABS: INR 1.1 (0.9-1.1); Partial Thromboplastin Ratio 1.8; Prothrombin Time 11.1 Seconds (9.0-12.0)
[2019-06-26 06:35] LABS: Partial Thromboplastin Time 47.8 Seconds (21.0-31.0)
[2019-06-26] MEDS: LOSARTAN POTASSIUM 25 MG TAB PO SCH (08:52)
[2019-06-26] MEDS: ATORVASTATIN 10 MG TAB PO SCH (08:52)
[2019-06-26] MEDS: methIMAzole 5 MG TABLET PO SCH (08:53)
[2019-06-26] MEDS: METOPROLOL SUCC 50MG EXT REL TAB PO SCH (08:53)
[2019-06-26] MEDS: MULTIVITAMIN TAB PO SCH (08:53)
[2019-06-26] MEDS: PANTOprazole 40 MG TAB PO SCH (08:53)
[2019-06-26] MEDS: MAGNESIUM OXIDE 400 MG TAB PO SCH (08:53)
[2019-06-26] MEDS ORDERED: ERGOCALCIFEROL 50,000 UNITS CAP PO SCH (09:00)
[2019-06-26] MEDS ORDERED: AMOXICILLIN/CLAVULANATE 875 MG TAB PO SCH (14:00)
[2019-06-26] MEDS ORDERED: RIVAROXABAN 20 MG TAB PO SCH (16:30)
== END 2019-06-26 13:46 | disposition home or self-care (01) | DRG 392 ==
LOC: ED 13:01 → SUATTDRO 17:58 → 2N 17:58

== ENCOUNTER 2022-01-08 18:21 | Observation (INO) ==
[2022-01-08] MEDS ORDERED: SODIUM CHLORIDE 0.9% 1000ML 1,000 ML IV ONE (18:29)
--- NOTE | 2022-01-08 18:53 | Emergency Department Note ---
Impression & Plan Acute lower gastrointestinal bleeding, On rivaroxaban therapy, Lower abdominal pain ED Provider Note NAME: JAMAR NUNEZ AGE: 76 SEX: F ARRIVES VIA: Walk-In INFORMANT: Patient ED PROVIDER(S): Mirza Maria MD CHIEF COMPLAINT: abdominal pain, bloody stool PLAN: Disposition: Admit MEDICAL DECISION MAKING: The patient is a pleasant 76-year-old woman with a past medical history of hemorrhoidal bleeding remotely requiring transfusion, PAD, history of DVT/PE on Xarelto, diastolic dysfunction, hypertension, hypothyroidism who presents to the emergency department for evaluation of ongoing lower abdominal pain and cramping with blood in her stool that varies from bright red blood to stool with blood in it that has been ongoing since Wednesday.The patient denies any nausea, vomiting, cough, congestion, fevers, chest pain, shortness of breath, lightheadedness. The patient reports she has been taking her Xarelto as prescribed. On arrival, the patient is fatigued appearing but no acute distress, afebrile stable vital signs. She appears clinically dry. Her abdomen is nontender. Rectal exam demonstrates maroon-colored stool with moderate amount of red blood that test Hemoccult positive. There is no gross hemorrhage or melena. No thrombosed hemorrhoids appreciated. EKG without overt acute ischemia. WBC 3.9K, similar to prior. H/H 13.1/37.4 similar to improved from September 2021. Chemistry without metabolic acidosis. BUN/creatinine> 20 consistent with the patient's clinically dry appearance. LFTs are unremarkable. Lipase not elevated. UA without evidence of infection. Covid-19 RNA, NAAT negative. CT of the abdomen pelvis was performed and was negative for acute process. Note is made of diverticulosis. Given the patient's active hematochezia in the setting of being on Xarelto she did agree with plan for admission for continued observation and management. Case was d/w Dr. Rosa, [facility] who will evaluate the patient for admission. Triage Nursing notes reviewed and agree them. Prior medical records reviewed Vital Signs: reviewed and remarkable for hypertension. Differential diagnosis: Appendicitis, ovarian cyst, infections, diverticulitis, UTI, obstruction, mesenteric ischemia, aortic pathology, inflammatory bowel disease, renal colic, PUD, pancreatitis, biliary pathology, hernia, volvulus, constipation, as well as other pathologies. ER treatment provided: See below. Diagnostics interpreted by me: ECG: Sinus rhythm, 86 bpm, PACs, ST and T wave abnormality, no overt ST elevation or depression, QTC 442, QRS 90. Cardiac Monitoring: An order for continuous cardiac monitoring was placed and d emonstrated Sinus rhythm, 86 bpm, PACs. Laboratory studies: See below Imaging studies: See below Consultation(s): Dr. Rosa, [facility] hospitalist. HPI: The patient is a pleasant 76-year-old woman with a past medical history of hemorrhoidal bleeding remotely requiring transfusion, PAD, history of DVT/PE on Xarelto, diastolic dysfunction, hypertension, hypothyroidism who presents to the emergency department for evaluation of ongoing lower abdominal pain and cramping with blood in her stool that varies from bright red blood to stool with blood in it that has been ongoing since Wednesday.The patient denies any nausea, vomiting, cough, congestion, fevers, chest pain, shortness of breath, lighth eadedness. The patient reports she has been taking her Xarelto as prescribed. ROS: See above HPI for pertinent positives & negatives. A total of 10 systems reviewed and were otherwise negative. VITALS:See Below PHYSICAL EXAMINATION: GENERAL: Awake, alert, fatigued-appearing, in no distress HENT: Normocephalic, atraumatic. Oropharynx with dry mucous membranes and otherwise unremarkable. EYES: Normal conjunctiva. Sclera non-icteric. NECK: Supple. No nuchal rigidity. FROM. No JVD. RESPIRATORY: Clear to auscultation. CARDIAC: Regular rate, normal rhythm. Extremities warm and well perfused. Pulses equal. ABDOMEN: Soft, non-distended. No tenderness to palpation. No rebound or guarding. No masses. RECTAL: Deferred. MUSCULOSKELETAL: Chest examination reveals no tenderness. The back is symmetrical on inspection without obvious abnormality. There is no CVA tenderness to palpation. No joint edema. LOWER EXTREMITIES: Calves are equal size bilaterally and non-tender. No edema. No discoloration. NEURO: Normal sensorium. No sensory or motor deficits noted. SKIN: No rash or jaundice noted. Mirza Maria MD Past Med/Surg History Medical History Diverticulitis of intestine with perforation GERD (gastroesophageal reflux disease) Hepatitis A A CHILD History of deep venous thrombosis History of diverticulitis History of pulmonary embolism HTN (hypertension) Hyperlipidemia Hypertension Hyperthyroidism Influenza On anticoagulant therapy Pulmonary emboli HX OF IN 2014 Surgical History H/O left cataract extraction H/O right cataract extraction History of carpal tunnel release History of colonoscopy History of tonsillectomy S/P hemorrhoidectomy Family History Father Stomach cancer Mother Stroke Hypertension Myocardial infarction Brother Prostate cancer Denies family history of Ovarian cancer Breast cancer Colorectal cancer Social History Smoking Status: Never smoker Second Hand Exposure: No; Hx Alcohol Use: No Hx Substance Use: No Preferred Language: Pashto Communication Ability: Effective Visual Impairment: No Limitations Hearing Ability: Normal Manager Motor Required: No Beliefs That Will Affect Care: None marital status: Current Living Situation: Spouse current occupational status: retired How many Children do You have: 2 Feels Safe at Home: Yes Childhood Exposure to Second-Hand Smoke: No caffeine: Yes during the past year weight has: remained stable Dental Care, Regularly: Yes Physical Activity Frequency: Daily Seatbelt Use: always Sunscreen Use: Yes Assistive Devices: Glasses Allergies Allergies Allergy/AdvReac Type Severity Reaction Status Date / Time lisinopril AdvReac Intermediate Cough Verified 01/08/22 19:00 Home Meds Home Medications Medication Instructions Recorded Confirmed multivitamin (Multiple Vitamins) 1 tab PO QAM 06/16/18 01/08/22 calcium carbonate 600 mg calcium 600 mg PO DAILY tab 09/20/19 01/08/22 (1,500 mg) tablet (Calcium) magnesium oxide 200 mg PO PM tab 09/20/19 01/08/22 Lactobacillus acidophilus 10,000 mmu cells PO DAILY 01/08/22 01/08/22 doxycycline hyclate 100 mg capsule 200 mg PO Q12H 01/08/22 01/08/22 Previous Rx's Medication Instructions Recorded amlodipine 5 mg tablet 5 mg PO HS #90 tab 02/26/21 atorvastatin 10 mg tablet 10 mg PO HS #90 tab 02/26/21 rivaroxaban 20 mg tablet (Xarelto) 20 mg PO PM #90 tab 02/26/21 clobetasol 0.05 % topical cream 1 applic TOPICAL BID 14 Days #30 g 03/31/21 omeprazole 40 mg capsule,delayed 40 mg PO DAILY #90 cap 05/13/21 release cholecalciferol (vitamin D3) 1,250 50,000 unit PO 2XWK #26 cap 09/17/21 mcg (50,000 unit) capsule methimazole 5 mg tablet 5 mg PO QAM #90 tab 12/08/21 metoprolol succinate 50 mg 50 mg PO BID #180 tab 12/08/21 tablet,extended release 24 hr Results & Data (ED) Vital Signs Vital Signs - 24 hr 01/08/22 18:22 01/08/22 18:24 01/08/22 18:28 Temperature 36.5 C Temperature Source Temporal Artery Scan Pulse Rate 78 97 H Pulse Rate [Left Radial] 78 Pulse Rhythm [Left Radial] Regular Respiratory Rate 20 18 20 Respiratory Effort / Characteristics Non-Labored Respiratory Depth Normal Blood Pressure 152/98 H Blood Pressure [Left Arm] Blood Pressure Mean 116 Blood Pressure Mean [Left Arm] Blood Pressure Position [Left Arm] Pulse Oximetry 98 97 98 Oxygen Delivery Method Room Air Room Air Room Air Sepsis Recent Fever Within 48 Hours No Sepsis New/Unexplained Change in Mental Status No Sepsis Action Taken by Nursing No Action Required 01/08/22 20:22 01/08/22 22:00 Temperature Temperature Source Pulse Rate Pulse Rate [Left Radial] 67 78 Pulse Rhythm [Left Radial] Regular Regular Respiratory Rate 20 20 Respiratory Effort / Characteristics Non-Labored Respiratory Depth Normal Normal Blood Pressure Blood Pressure [Left Arm] 179/98 H Blood Pressure Mean Blood Pressure Mean [Left Arm] 125 Blood Pressure Position [Left Arm] Lying Pulse Oximetry 97 97 Oxygen Delivery Method Room Air Room Air Sepsis Recent Fever Within 48 Hours Sepsis New/Unexplained Change in Mental Status Sepsis Action Taken by Nursing Laboratory Data Attestation: I reviewed the patient's lab results. Result diagrams: 01/08/22 18:45 01/08/22 18:45 Lab Results 01/08/22 01/08/22 01/08/22 Range/Units 18:45 18:45 20:14 WBC 3.97 L (4.8-10.8) K/uL RBC 4.09 L (4.2-5.4) M/uL Hgb 13.1 (12.0-16.0) g/dL Hct 37.4 (37-47) % MCV 91.4 (80-100) fL MCH 32.0 (25-34) pg MCHC 35.0 (32-36) g/dL RDW Std Deviation 43.9 (36.4-46.3) fL RDW Coeff of Vanessa 13.1 (11.5-14.5) % Plt Count 195 (130-400) K/uL MPV 9.3 (7.4-10.4) fL Immature Gran % (Auto) 0.0 % Neut % (Auto) 47.3 % Lymph % (Auto) 42.3 % Rooks % (Auto) 7.8 % Eos % (Auto) 2.3 % Baso % (Auto) 0.3 % Neut # (Auto) 1.88 (1.4-6.5) K/uL Lymph # (Auto) 1.68 (1.2-3.4) K/uL Rooks # (Auto) 0.31 (0.11-0.59) K/uL Eos # (Auto) 0.09 (0-0.5) K/uL Baso # (Auto) 0.01 (0-0.2) K/uL Immature Gran # (Auto) 0.00 (0.00-0.02) K/uL Sodium 141 (136-145) mmol/L Potassium 3.7 (3.5-5.1) mmol/L Chloride 111 H (98-107) mmol/L Carbon Dioxide 23 (21-32) mmol/L Anion Gap 7 (3-11) BUN 16 (6-23) mg/dl Creatinine 0.78 (0.6-1.2) mg/dl Est Cr Clr Drug Dosing 71.6 ml/min Est GFR ( Amer) 86.8 ml/min Est GFR (Non-Af Amer) 74.9 ml/min BUN/Creatinine Ratio 20.5 H (10-20) Glucose 79 (70-99(Fasting)) mg/dl Calcium 8.8 (8.5-10.1) mg/dl Total Bilirubin 0.4 (0.2-1.0) mg/dl AST 18 (13-39) U/L ALT 13 (7-52) U/L Alkaline Phosphatase 88 (34-104) U/L Total Protein 6.9 (6.0-8.3) gm/dl Albumin 3.7 (3.4-5.0) gm/dl Globulin 3.2 (2.5-4.0) gm/dl Albumin/Globulin Ratio 1.2 (0.9-2) Lipase 28 (11-82) U/L Urine Color Yellow Urine Appearance Clear (Clear) Urine pH 6.5 (4.5-7.5) Ur Specific [place] 1.004 (1.000-1.030) Urine Protein Negative (Negative) Urine Glucose (UA) Negative (Negative) Urine Ketones Negative (Negative) Urine Blood Negative (Negative) Urine Nitrite Negative (Negative) Urine Bilirubin Negative (Negative) Urine Urobilinogen Negative (Negative) Ur Leukocyte Esterase Negative (Negative) SARS-CoV-2, RNA, NAAT (NEGATIVE) 01/08/22 Range/Units 22:31 WBC (4.8-10.8) K/uL RBC (4.2-5.4) M/uL Hgb (12.0-16.0) g/dL Hct (37-47) % MCV (80-100) fL MCH (25-34) pg MCHC (32-36) g/dL RDW Std Deviation (36.4-46.3) fL RDW Coeff of Vanessa (11.5-14.5) % Plt Count (130-400) K/uL MPV (7.4-10.4) fL Immature Gran % (Auto) % Neut % (Auto) % Lymph % (Auto) % Rooks % (Auto) % Eos % (Auto) % Baso % (Auto) % Neut # (Auto) (1.4-6.5) K/uL Lymph # (Auto) (1.2-3.4) K/uL Rooks # (Auto) (0.11-0.59) K/uL Eos # (Auto) (0-0.5) K/uL Baso # (Auto) (0-0.2) K/uL Immature Gran # (Auto) (0.00-0.02) K/uL Sodium (136-145) mmol/L Potassium (3.5-5.1) mmol/L Chloride (98-107) mmol/L Carbon Dioxide (21-32) mmol/L Anion Gap (3-11) BUN (6-23) mg/dl Creatinine (0.6-1.2) mg/dl Est Cr Clr Drug Dosing ml/min Est GFR ( Amer) ml/min Est GFR (Non-Af Amer) ml/min BUN/Creatinine Ratio (10-20) Glucose (70-99(Fasting)) mg/dl Calcium (8.5-10.1) mg/dl Total Bilirubin (0.2-1.0) mg/dl AST (13-39) U/L ALT (7-52) U/L Alkaline Phosphatase (34-104) U/L Total Protein (6.0-8.3) gm/dl Albumin (3.4-5.0) gm/dl Globulin (2.5-4.0) gm/dl Albumin/Globulin Ratio (0.9-2) Lipase (11-82) U/L Urine Color Urine Appearance (Clear) Urine pH (4.5-7.5) Ur Specific [place] (1.000-1.030) Urine Protein (Negative) Urine Glucose (UA) (Negative) Urine Ketones (Negative) Urine Blood (Negative) Urine Nitrite (Negative) Urine Bilirubin (Negative) Urine Urobilinogen (Negative) Ur Leukocyte Esterase (Negative) SARS-CoV-2, RNA, NAAT NEGATIVE (NEGATIVE) Administered Medications Discontinued Medications Sodium Chloride (Nss 1000ml) 1,000 mls @ 999 mls/hr IV .Q1H1M ONE Stop: 01/08/22 19:29 Last Infusion: 01/08/22 20:16 Dose: 0 mls/hr Documented by: [id number] Admin: 01/08/22 19:05 Dose: 999 mls/hr Documented by: [id number] Ioversol (Optiray 320 100ml) 93 ml IV ONCE ONE Stop: 01/08/22 20:11 Last Admin: 01/08/22 20:11 Dose: 93 ml Documented by: [id number] Imaging Data Radiologist's Impression: Abdomen/Pelvis CT 01/08/22 18:[address] WITH IV CONTRAST CT DOSE: 613.57 mGy.cm HISTORY: Generalized abd pain, hematochezia TECHNIQUE: Multiaxial CT images of the abdomen and pelvis were performed following the use of intravenous contrast. A dose lowering technique was utilized adhering to the principles of ALARA. COMPARISON STUDY: Abdomen and pelvis CT 04/07/2020. FINDINGS: Mild chronic interstitial thickening at the lung bases, unchanged. No pneumoperitoneum. No pneumatosis. Dextroscoliosis and degenerative changes again noted within the lumbar spine. Tiny fat-containing umbilical hernia. The liver, gallbladder, pancreas, spleen, adrenal glands are unremarkable. The kidneys enhance normally. No hydronephrosis. The bladder, uterus, bilateral adnexa are within normal limits. Multiple pelvic fluid was are again noted. The main portal vein is patent. Normal caliber abdominal aorta with mild calcified plaque. 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 This remains unchanged. No pelvic free fluid. Colonic diverticulosis. No evidence for acute diverticulitis. No bowel wall thickening or obstruction. Normal appendix. IMPRESSION: 1. No bowel wall thickening or obstruction. 2. Normal appendix. 3. Colonic diverticulosis. No evidence for acute diverticulitis. 4. Additional stable findings as described above. ACT 112: Negative or not required by law. Electronically signed by: Ronn Marmolejo M.D. 01/08/2022 8:26 PM Discharge Plan Visit Data Chief Complaint: Rectal Bleed Stated Complaint: RECTAL BLEEDING; HEMMROIDS, ABD PAIN/PRESSURE ED Provider: Mirza Maria Discharge Problem: Acute lower gastrointestinal bleeding, On rivaroxaban therapy, Lower abdominal pain Forms Stand Alone Forms: [employer] Prescriptions Prescriptions: No Action magnesium oxide 200 mg magnesium tablet 200 mg PO PM RF: 0 omeprazole 40 mg capsule,delayed release(DR/EC) 40 mg PO DAILY Qty: 90 RF: 1 metoprolol succinate 50 mg tablet extended release 24 hr 50 mg PO BID Qty: 180 RF: 1 methimazole 5 mg tablet 5 mg PO QAM Qty: 90 RF: 1 cholecalciferol (vitamin D3) 1,250 mcg (50,000 unit) capsule 50,000 unit PO 2XWK Qty: 26 RF: 3 clobetasol 0.05 % cream 1 applic topical BID 14 Days Qty: 30 RF: 0 Xarelto 20 mg tablet 20 mg PO PM Qty: 90 RF: 3 atorvastatin 10 mg tablet 10 mg PO HS Qty: 90 RF: 3 amlodipine 5 mg tablet 5 mg PO HS Qty: 90 RF: 3 multivitamin [Multiple Vitamins] Tablet 1 tab PO QAM RF: 0 calcium carbonate [Calcium 600] 600 mg calcium (1,500 mg) tablet 600 mg PO DAILY RF: 0 Lactobacillus acidophilus Capsule 10,000 mmu cells PO DAILY RF: 0 doxycycline hyclate 100 mg capsule 200 mg PO Q12H RF: 0 Referrals Referrals: Koby Ambrocio III, CRNP [Primary Care Provider] -
[2022-01-08 19:03] LABS: Basophils # (auto) 0.01 K/uL (0-0.2); Basophils % (auto) 0.3 %; Eosinophils # (auto) 0.09 K/uL (0-0.5); Eosinophils % (auto) 2.3 %; Hematocrit (blood only) 37.4 % (37-47); Hemoglobin 13.1 g/dL (12.0-16.0); Lymphocytes # (auto) 1.68 K/uL (1.2-3.4); Lymphocytes % (auto) 42.3 %; Mean Corpuscular Volume 91.4 fL (80-100); Mean Platelet Volume 9.3 fL (7.4-10.4); Monocytes # (auto) 0.31 K/uL (0.11-0.59); Monocytes % (auto) 7.8 %; Neutrophils # (auto) 1.88 K/uL (1.4-6.5); Neutrophils % (auto) 47.3 %; Platelet Count 195 K/uL (130-400); RDW Coefficient of Variation 13.1 % (11.5-14.5); RDW Standard Deviation 43.9 fL (36.4-46.3); Red Blood Count 4.09 M/uL (4.2-5.4); White Blood Count 3.97 K/uL (4.8-10.8)
[2022-01-08 19:29] LABS: Albumin Globulin Ratio 1.2 (0.9-2); Albumin Level 3.7 gm/dl (3.4-5.0); BUN Creatinine Ratio 20.5 (10-20); Bilirubin,Total 0.4 mg/dl (0.2-1.0); Calcium 8.8 mg/dl (8.5-10.1); Creatinine Clr Calc Pharmacy 71.6 ml/min; Est GFR (African American) 86.8 ml/min; Est GFR (Non-African American) 74.9 ml/min; Globulin 3.2 gm/dl (2.5-4.0); Potassium 3.7 mmol/L (3.5-5.1); Total Protein 6.9 gm/dl (6.0-8.3)
[2022-01-08] MEDS ORDERED: OPTIRAY 320 100ml IV ONE (20:10)
--- NOTE | 2022-01-08 20:29 | CT Scan Report ---
ABDOMEN AND PELVIS CT WITH IV CONTRAST CT DOSE: 613.57 mGy.cm HISTORY: Generalized abd pain, hematochezia TECHNIQUE: Multiaxial CT images of the abdomen and pelvis were performed following the use of intrave nous contrast. A dose lowering technique was utilized adhering to the principles of ALARA. COMPARISON STUDY: Abdomen and pelvis CT 04/07/2020. FINDINGS: Mild chronic interstitial thickening at the lung bases, unchanged. No pneumoperitoneum. No pneumatosis. Dextroscoliosis and degenerative changes again noted within the lumbar spine. Tiny fat-c ontaining umbilical hernia. The liver, gallbladder, pancreas, spleen, adrenal glands are unremarkable . The kidneys enhance normally. No hydronephrosis. The bladder, uterus, bilateral adnexa are within n ormal limits. Multiple pelvic fluid was are again noted. The main portal vein is patent. Normal calib er abdominal aorta with mild calcified plaque. Mild aneurysmal dilatation of the right common iliac a rtery measuring 1.9 cm in diameter. This remains unchanged. No pelvic free fluid. Colonic diverticulo sis. No evidence for acute diverticulitis. No bowel wall thickening or obstruction. Normal appendix. IMPRESSION: 1. No bowel wall thickening or obstruction. 2. Normal appendix. 3. Colonic diverticulosis. No evidence for acute diverticulitis. 4. Additional stable findings as described above. ACT 112: Negative or not required by law. Electronically signed by: Ronn Marmolejo M.D. 01/08/2022 8:26 PM
[2022-01-08 20:33] LABS: Appearance Urine Clear (Clear); Bilirubin Urine Negative (Negative); Blood Urine Negative (Negative); Color Urine Yellow; Glucose Urine UA Negative (Negative); Ketones Urine Negative (Negative); Leukocyte Esterase Urine Negative (Negative); Nitrite Urine Negative (Negative); Protein Urine Negative (Negative); Specific Gravity Urine 1.004 (1.000-1.030); Urobilinogen Urine Negative (Negative); pH Urine 6.5 (4.5-7.5)
--- NOTE | 2022-01-09 01:55 | History & Physical Report ---
Date of Service January 08, 2022 Assessment & Plan (1) Acute lower gastrointestinal bleeding: Plan: Suspect diverticular vs hemorrhoidal bleed. Patient afebrile, HD stable. H/H acceptable. -Hold Rivaroxaban -Repeat CBC in AM -GI consult appreciated re: possible colonoscopy vs outpatient followup -Keep NPO (2) History of pulmonary embolism: Plan: In 2014 - patient states she is on lifelong anticoagulation. Last dose 01/07/22 PM -Hold Rivaroxaban in setting of active bleed (3) Hyperthyroidism: Plan: Chronic. Patient follows with Endocrinology. Last TSH 12/09/21 within normal limits at 1.733 -Continue Methimazole 5mg po qAM (4) GERD (gastroesophageal reflux disease): Plan: Chronic -Continue omeprazole 40mg daily (5) HTN (hypertension): Plan: Blood pressure stable -Continue Amlodipine -Continue metoprolol -Continue to monitor (6) Dental infection: Plan: Patient had recent extraction with implant. She is on Doxycycline 100mg po BID x 14 day course. Last day should be 01/09/22 PM dose -Continue History of Present Illness Chief Complaint: Rectal bleed Primary Care Provider: Koby Ambrocio III, PRESSURE TESTING TECHNICIAN 76yo female with history of internal hemorrhoids, diverticulosis presenting with rectal bleed x 3 days. Patient reports a significant amount of bright red blood in the toilet bows as well as on the toilet paper and possibly on the stool itself for the last 3 days. The bleeding started slowly and has been increasing in amount. She has some lower abdominal pressure as well as some bloating but denies abdominal pain. No diarrhea. She has a BM daily and states that she does not need to strain. She administered an enema at home last week in preparation for an appointment with Colorectal Surgery from [facility]. She reports some right sided rectal pain since the enema. Patient is on Rivaroxaban anticoagulation following a DVT and PE diagnosed in 2014. States that she is on lifelong blood thinners. Last dose was 01/07/22 PM. No antiplatelets. She has a remote history of a LGIB (thought to be secondary to hemorrhoidal bleed) requiring transfusion of 2u PRBCs. Also history of diverticulitis with perforation. Colonoscopy [place] [address] Loyola which revealed sigmoid diverticulosis and internal hemorrhoids. She denies chest pain, cough, SOB, fever, chills, nausea, abdominal pain, diarrhea. No additional complaints at this time. Admission requested by ER for ongoing blood loss, history of anticoagulation. Allergies Allergy/AdvReac Type Severity Reaction Status Date / Time lisinopril AdvReac Intermediate Cough Verified 01/08/22 19:00 Home Medications Medication Instructions Recorded Confirmed Type multivitamin (Multiple Vitamins) 1 tab PO QAM 06/16/18 01/08/22 History calcium carbonate 600 mg calcium 600 mg PO DAILY tab 09/20/19 01/08/22 History (1,500 mg) tablet (Calcium) magnesium oxide 200 mg PO PM tab 09/20/19 01/08/22 History amlodipine 5 mg tablet 5 mg PO HS #90 tab 02/26/21 01/08/22 Rx atorvastatin 10 mg tablet 10 mg PO HS #90 tab 02/26/21 01/08/22 Rx rivaroxaban 20 mg tablet (Xarelto) 20 mg PO PM #90 tab 02/26/21 01/08/22 Rx clobetasol 0.05 % topical cream 1 applic TOPICAL BID 14 Days #30 g 03/31/21 01/08/22 Rx omeprazole 40 mg capsule,delayed 40 mg PO DAILY #90 cap 05/13/21 01/08/22 Rx release cholecalciferol (vitamin D3) 1,250 50,000 unit PO 2XWK #26 cap 09/17/21 01/08/22 Rx mcg (50,000 unit) capsule methimazole 5 mg tablet 5 mg PO QAM #90 tab 12/08/21 01/08/22 Rx metoprolol succinate 50 mg 50 mg PO BID #180 tab 12/08/21 01/08/22 Rx tablet,extended release 24 hr Lactobacillus acidophilus 10,000 mmu cells PO DAILY 01/08/22 01/08/22 History doxycycline hyclate 100 mg capsule 200 mg PO Q12H 01/08/22 01/08/22 History Past Med/Surg History Medical History (Updated 01/09/22 @ 02:00 by Iram Rosa DO) Diverticulitis of intestine with perforation GERD (gastroesophageal reflux disease) Hepatitis A A CHILD History of deep venous thrombosis History of diverticulitis History of pulmonary embolism HTN (hypertension) Hyperlipidemia Hypertension Hyperthyroidism Influenza On anticoagulant therapy Pulmonary emboli HX OF IN 2015 Surgical History H/O left cataract extraction H/O right cataract extraction History of carpal tunnel release History of colonoscopy History of tonsillectomy S/P hemorrhoidectomy Family History Father Stomach cancer Mother Stroke Hypertension Myocardial infarction Brother Prostate cancer Denies family history of Ovarian cancer Breast cancer Colorectal cancer Social History Smoking Status: Never smoker Second Hand Exposure: No; Hx Alcohol Use: No Hx Substance Use: No Preferred Language: Belgian Communication Ability: Effective Visual Impairment: No Limitations Hearing Ability: Normal Data Deliverables Manager Required: No Beliefs That Will Affect Care: None marital status: Current Living Situation: Spouse current occupational status: retired How many Children do You have: 2 Feels Safe at Home: Yes Childhood Exposure to Second-Hand Smoke: No caffeine: Yes during the past year weight has: remained stable Dental Care, Regularly: Yes Physical Activity Frequency: Daily Seatbelt Use: always Sunscreen Use: Yes Assistive Devices: Glasses Review of Systems Review of Systems: All systems reviewed & are unremarkable except as noted in HPI & below Physical Exam Physical Exam: General: patient resting comfortably, NAD, non-toxic in appearance, AA&O x 4 Skin: warm, dry, intact, no rashes or lesions HEENT: NC/AT, PERRL, EOMI, anicteric sclera, conjunctiva without injection, external ear normal to inspection and nontender, nares patent, moist mucus membranes, dentition intact, no oropharyngeal lesions, neck supple, trachea midline, no LAD, no thyromegaly, no JVD Heart: +S1/S2, regular, no m/r/g Lungs: equal air entry bilaterally, no rales/rhonchi/wheezes Abd: +BS, soft, NT/ND, no masses/organomegaly/ascites Ext: warm, 2+ pulses in UE/LE bilaterally, no clubbing/cyanosis or edema Neuro: nonfocal, patient AA&O x 4, speech intact, no facial droop, moving all extremities on command with equal strength 5/5 Rectal exam per ER: reported bright red blood Results & Data Results & Data ([facility]) Vital Signs (Past 12 Hours) Vital Signs Temp Pulse Pulse Resp BP BP Pulse Ox 01/09/22 00:40 95 01/09/22 00:30 91 01/09/22 00:20 96 01/09/22 00:10 95 01/09/22 00:00 94 01/08/22 23:50 94 01/08/22 23:40 93 01/08/22 23:30 95 01/08/22 23:20 93 01/08/22 23:10 96 01/08/22 23:00 95 01/08/22 22:50 97 01/08/22 22:40 98 01/08/22 22:32 141/96 H 96 01/08/22 22:00 78 20 97 01/08/22 20:22 67 20 179/98 H 97 01/08/22 19:40 90 23 01/08/22 19:30 85 27 H 01/08/22 19:27 86 25 H 01/08/22 18:28 20 98 01/08/22 18:24 36.5 C 97 H 18 152/98 H 97 01/08/22 18:22 78 78 20 98 Laboratory Results Laboratory Results WBC 3.97 K/uL (4.8-10.8) L 01/08/22 18:45 RBC 4.09 M/uL (4.2-5.4) L 01/08/22 18:45 Hgb 13.1 g/dL (12.0-16.0) 01/08/22 18:45 Hct 37.4 % (37-47) 01/08/22 18:45 MCV 91.4 fL (80-100) 01/08/22 18:45 MCH 32.0 pg (25-34) 01/08/22 18:45 MCHC 35.0 g/dL (32-36) 01/08/22 18:45 RDW Std Deviation 43.9 fL (36.4-46.3) 01/08/22 18:45 RDW Coeff of Vanessa 13.1 % (11.5-14.5) 01/08/22 18:45 Plt Count 195 K/uL (130-400) 01/08/22 18:45 MPV 9.3 fL (7.4-10.4) 01/08/22 18:45 Immature Gran % (Auto) 0.0 % 01/08/22 18:45 Neut % (Auto) 47.3 % 01/08/22 18:45 Lymph % (Auto) 42.3 % 01/08/22 18:45 [place] % (Auto) 7.8 % 01/08/22 18:45 Eos % (Auto) 2.3 % 01/08/22 18:45 Baso % (Auto) 0.3 % 01/08/22 18:45 Neut # (Auto) 1.88 K/uL (1.4-6.5) 01/08/22 18:45 Lymph # (Auto) 1.68 K/uL (1.2-3.4) 01/08/22 18:45 [place]ford # (Auto) 0.31 K/uL (0.11-0.59) 01/08/22 18:45 Eos # (Auto) 0.09 K/uL (0-0.5) 01/08/22 18:45 Baso # (Auto) 0.01 K/uL (0-0.2) 01/08/22 18:45 Immature Gran # (Auto) 0.00 K/uL (0.00-0.02) 01/08/22 18:45 Sodium 141 mmol/L (136-145) 01/08/22 18:45 Potassium 3.7 mmol/L (3.5-5.1) 01/08/22 18:45 Chloride 111 mmol/L (98-107) H 01/08/22 18:45 Carbon Dioxide 23 mmol/L (21-32) 01/08/22 18:45 Anion Gap 7 (3-11) 01/08/22 18:45 BUN 16 mg/dl (6-23) 01/08/22 18:45 Creatinine 0.78 mg/dl (0.6-1.2) 01/08/22 18:45 Est Cr Clr Drug Dosing 71.6 ml/min 01/08/22 18:45 Est GFR ( Amer) 86.8 ml/min 01/08/22 18:45 Est GFR (Non-Af Amer) 74.9 ml/min 01/08/22 18:45 BUN/Creatinine Ratio 20.5 (10-20) H 01/08/22 18:45 Glucose 79 mg/dl (70-99(Fasting)) 01/08/22 18:45 Calcium 8.8 mg/dl (8.5-10.1) 01/08/22 18:45 Total Bilirubin 0.4 mg/dl (0.2-1.0) 01/08/22 18:45 AST 18 U/L (13-39) 01/08/22 18:45 ALT 13 U/L (7-52) 01/08/22 18:45 Alkaline Phosphatase 88 U/L (34-104) 01/08/22 18:45 Total Protein 6.9 gm/dl (6.0-8.3) 01/08/22 18:45 Albumin 3.7 gm/dl (3.4-5.0) 01/08/22 18:45 Globulin 3.2 gm/dl (2.5-4.0) 01/08/22 18:45 Albumin/Globulin Ratio 1.2 (0.9-2) 01/08/22 18:45 Lipase 28 U/L (11-82) 01/08/22 18:45 Urine Color Yellow 01/08/22 20:14 Urine Appearance Clear (Clear) 01/08/22 20:14 Urine pH 6.5 (4.5-7.5) 01/08/22 20:14 Ur Specific Gary 1.004 (1.000-1.030) 01/08/22 20:14 Urine Protein Negative (Negative) 01/08/22 20:14 Urine Glucose (UA) Negative (Negative) 01/08/22 20:14 Urine Ketones Negative (Negative) 01/08/22 20:14 Urine Blood Negative (Negative) 01/08/22 20:14 Urine Nitrite Negative (Negative) 01/08/22 20:14 Urine Bilirubin Negative (Negative) 01/08/22 20:14 Urine Urobilinogen Negative (Negative) 01/08/22 20:14 Ur Leukocyte Esterase Negative (Negative) 01/08/22 20:14 SARS-CoV-2, RNA, NAAT NEGATIVE (NEGATIVE) 01/08/22 22:31 Impressions Abdomen/Pelvis CT 01/08/22 18:[address] WITH IV CONTRAST CT DOSE: 613.57 mGy.cm HISTORY: Generalized abd pain, hematochezia TECHNIQUE: Multiaxial CT images of the abdomen and pelvis were performed following the use of intravenous contrast. A dose lowering technique was utilized adhering to the principles of ALARA. COMPARISON STUDY: Abdomen and pelvis CT 04/07/2020. FINDINGS: Mild chronic interstitial thickening at the lung bases, unchanged. No pneumoperitoneum. No pneumatosis. Dextroscoliosis and degenerative changes again noted within the lumbar spine. Tiny fat-containing umbilical hernia. The liver, gallbladder, pancreas, spleen, adrenal glands are unremarkable. The kidneys enhance normally. No hydronephrosis. The bladder, uterus, bilateral adnexa are within normal limits. Multiple pelvic fluid was are again noted. The main portal vein is patent. Normal caliber abdominal aorta with mild calcified plaque. 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 This remains unchanged. No pelvic free fluid. Colonic diverticulosis. No evidence for acute diverticulitis. No bowel wall thickening or obstruction. Normal appendix. IMPRESSION: 1. No bowel wall thickening or obstruction. 2. Normal appendix. 3. Colonic diverticulosis. No evidence for acute diverticulitis. 4. Additional stable findings as described above. ACT 112: Negative or not required by law. Electronically signed by: Ronn Marmolejo M.D. 01/08/2022 8:26 PM PG Care Time/CCT Total # of Minutes Spent Total Time Spent with Patient: Total time spent is greater than 50% in coordination of care (as documented) at patient's floor/unit and/or counseling patient: Coding Level of Care Code INT OBSERVATION CARE 50M LVL 2 Diagnoses Acute lower gastrointestinal bleeding K92.2 Hyperthyroidism E05.90 GERD (gastroesophageal reflux disease) K21.9 Esophagitis presence: without esophagitis HTN (hypertension) I10 Hypertension type: essential hypertension History of pulmonary embolism Z86.711 Dental infection K04.7 (1) GERD (gastroesophageal reflux disease) Esophagitis presence: without esophagitis Qualified Code(s): K21.9 - Gastro- esophageal reflux disease without esophagitis (2) HTN (hypertension) Hypertension type: essential hypertension Qualified Code(s): I10 - Essential (primary) hypertension
[2022-01-09] MEDS ORDERED: DOCUSATE SODIUM 100 MG CAP PO PRN (01:56)
[2022-01-09] MEDS ORDERED: POLYETHYLENE (MIRALAX) 17 GM PACK PO PRN (01:56)
--- NOTE | 2022-01-09 08:11 | Hospitalist Progress Note ---
Date of Service January 09, 2022 Assessment & Plan (1) Acute lower gastrointestinal bleeding: Plan: Suspect diverticular vs hemorrhoidal bleed. Patient afebrile, HD stable. H/H acceptable. Had not reported issues with constipation/straining at home but was to have f/u with colorectal surgeon from [facility] and given herself enema last week. -Hold Rivaroxaban Hgb 13.1 on admit, 12.3 on repeat but did get 1L IVF on admission No further BM, monitor. fecal occult ordered CTAP without abn but did have hx diverticulitis with perf back in 2019. ?diverticular bleeding NPO for possible intervention as GI consulted, but per discussion they would avoid scope given stability and that they recommend 2 TBSP Benefiber and Metamucil daily. Ok to use anucort supp BID at discharge. Per colorectal note, to contact them with worsening symptoms and per GI they will coordinate with their office if further eval with colonoscopy neccessary based on plans for intervention OF note, was going to feed but patient with recent abn stress and had been reporting palpitations/hx SVT and planned for cardiac cath 02/[address] De Jesus. --> Discussed with patient/Dr De Jesus and will continue NPO and plan for cath this afternoon NO Cp reported at this time Rec monitoring on monitored bed post-op Monitor blood counts/BM and possible discharge tomorrow with outpatient follow up (2) SVT (supraventricular tachycardia): Plan: Hx of palpitations/paroxysmal SVT, followed by Dr. De Jesus. Also with mild mitral valve disease, chronic venous insufficient, HLD/HLD Prior cardiovascular studies: Exercise stress echo 09/2021: 2:38 on Sachin, 4.6 METs. 80% MPHR with no ischemia. LVEF 60%, mild MR. Exercise stress echo (08/2017): Exercise 6 minutes 54 seconds, achieved 6.9 Mets. Negative for ischemia at 88% MPHR normal resting LV size and function, no significant valvular pathology Holter monitor (08/2017): Sinus rhythm minimum 49, maximum 113, average 73. Limited variation initially concerning for chronotropic incompetence. Very brief episode of SVT lasting several beats Event monitor 01/19/2016 with atrial tachycardia. Venous ultrasound 07/2015: right side is only minimally dilated with reflux only at the proximal segments left GSV and SSV are dilated with significant reflux. Arterial ultrasound 07/2015: ABIs normal. Less than 50 percent stenosis bilaterally. Cardiac Stress Test December 2019 -- ABN Cards consulted, EKG on admission with SR PAC, ST/T wave abn but no CP. Add trop to AM labs Discussed with cards, will plan for cardiac cath today as remains NPO (3) History of pulmonary embolism: Plan: In 2014 DVT/PE - patient states she is on lifelong anticoagulation. Last dose 01/07/22 PM -Hold Rivaroxaban in setting of reported bleed. CBC stable on repeat but monitoring BM/CBC in AM and likely resume. No LE symptoms at this time/shortness of breath, SCDs ordered in meantime, encouraging ambulation (4) Hyperthyroidism: Plan: Hx Graves, chronic and follows with Dr Harley. Last TSH December wnl 1.7 and maintained on methimazole 5mg daily, continued (5) GERD (gastroesophageal reflux disease): Plan: Chronic Continue omeprazole 40mg daily (6) HTN (hypertension): Plan: Blood pressure stable, patient maintained on amlodipine, metoprolol BP 128/80, monitor (7) Dental infection: Plan: Patient had recent extraction with implant. She is on Doxycycline 100mg po BID x 14 day course. Last day should be 01/09/22 PM dose Continued (8) Lichen sclerosus of female genitalia: Plan: hx of, follows with Dr Cruz and recently seen with reported improvement Plan: NPO for cath today Admission and Anticipated Discharge Date Admission Date: January 09, 2022 Supervising Physician Co-Signing Physician Notes PA Supervision Note: I did not personally see or examine the patient today, but I verified all [place] points of RIVKA Dennison's assessment and plan with the following exceptions/additions: None Subjective BRIDGE NOTE: ADMITTED AFTER MIDNIGHT Eval this morning. Doing fine. Not yet seen by GI but discussed unlikely to scope based on stable hgb. No further BM. She notes these have been bright red in both stool and toilet paper and noted 2 larger bloody BM and 2 smaller prior to admission after administration of enema. Hx hemorrhoids. Does admit to some lower abdominal cramping. No nausea/vomiting. Takes magnesium, probiotic to keep stools regular and recently added Metamucil which she notes had been very effective. Occasional palpitations but this is not new. Recent abn stress and states she is to have cardiac catheterization February 02 per their office when they called. She denies any recent fever/chills, chest pain. On Xarelto for hx DVT in L leg and PE in 2015. Denies any history of hypercoagulability.Possibly mom w/ hx PE but no DVT, but states to be on lifelong AC, currently held. Review of Systems Review of Systems: All systems reviewed & are unremarkable except as noted in HPI & below Physical Exam Physical Exam: General: patient resting comfortably, NAD, non-toxic in appearance, AA&O x 4 Skin: warm, dry, intact, no rashes or lesions HEENT: NC/AT, PERRL, EOMI, anicteric sclera, conjunctiva without injection, external ear normal to inspection and nontender, nares patent, slightly dry mucus membranes, dentition intact, no oropharyngeal lesions, neck supple, trachea midline, no LAD, no thyromegaly, no JVD Heart: +S1/S2, regular, no m/r/g Lungs: equal air entry bilaterally, no rales/rhonchi/wheezes Abd: +BS, soft, NT/ND, no masses/organomegaly/ascites Ext: warm, 2+ pulses in UE/LE bilaterally, no clubbing/cyanosis or edema Neuro: nonfocal, patient AA&O x 4, speech intact, no facial droop, moving all extremities on command with equal strength 5/5 Rectal exam per ER: reported bright red blood Results & Data Results & Data ([facility]) Vital Signs (Past 12 Hours) Vital Signs Temp Pulse Pulse Resp BP BP Pulse Ox 01/09/22 07:43 36.8 C 80 14 128/80 94 01/09/22 02:25 37.1 C 85 18 157/78 H 98 01/09/22 00:40 95 01/09/22 00:30 91 01/09/22 00:20 96 01/09/22 00:10 95 01/09/22 00:00 94 01/08/22 23:50 94 01/08/22 23:40 93 01/08/22 23:30 95 01/08/22 23:20 93 01/08/22 23:10 96 01/08/22 23:00 95 01/08/22 22:50 97 01/08/22 22:40 98 01/08/22 22:32 141/96 H 96 01/08/22 22:00 78 20 97 01/08/22 20:22 67 20 179/98 H 97 Laboratory Results 01/09/22 01/09/22 01/09/22 Range/Units 13:38 08:35 08:35 WBC (4.8-10.8) K/uL RBC (4.2-5.4) M/uL Hgb (12.0-16.0) g/dL Hct (37-47) % MCV (80-100) fL MCH (25-34) pg MCHC (32-36) g/dL RDW Std Deviation (36.4-46.3) fL RDW Coeff of Vanessa (11.5-14.5) % Plt Count (130-400) K/uL MPV (7.4-10.4) fL Immature Gran % (Auto) % Neut % (Auto) % Lymph % (Auto) % Dawson % (Auto) % Eos % (Auto) % Baso % (Auto) % Neut # (Auto) (1.4-6.5) K/uL Lymph # (Auto) (1.2-3.4) K/uL Dawson # (Auto) (0.11-0.59) K/uL Eos # (Auto) (0-0.5) K/uL Baso # (Auto) (0-0.2) K/uL Immature Gran # (Auto) (0.00-0.02) K/uL PT 11.5 (9.0-12.0) Seconds INR 1.1 (0.9-1.1) Sodium (136-145) mmol/L Potassium (3.5-5.1) mmol/L Chloride (98-107) mmol/L Carbon Dioxide (21-32) mmol/L Anion Gap (3-11) BUN (6-23) mg/dl Creatinine (0.6-1.2) mg/dl Est Cr Clr Drug Dosing ml/min Est GFR ( Amer) ml/min Est GFR (Non-Af Amer) ml/min BUN/Creatinine Ratio (10-20) Glucose (70-99(Fasting)) mg/dl Calcium (8.5-10.1) mg/dl Magnesium 1.8 (1.7-2.4) mg/dl Total Bilirubin (0.2-1.0) mg/dl AST (13-39) U/L ALT (7-52) U/L Alkaline Phosphatase (34-104) U/L Total Protein (6.0-8.3) gm/dl Albumin (3.4-5.0) gm/dl Globulin (2.5-4.0) gm/dl Albumin/Globulin Ratio (0.9-2) Lipase (11-82) U/L Urine Color Urine Appearance (Clear) Urine pH (4.5-7.5) Ur Specific Murray (1.000-1.030) Urine Protein (Negative) Urine Glucose (UA) (Negative) Urine Ketones (Negative) Urine Blood (Negative) Urine Nitrite (Negative) Urine Bilirubin (Negative) Urine Urobilinogen (Negative) Ur Leukocyte Esterase (Negative) Stool Occult Bld Scrn Negative (Negative) SARS-CoV-2, RNA, NAAT (NEGATIVE) 01/09/22 01/09/22 01/08/22 Range/Units 08:35 08:35 22:31 WBC 3.82 L (4.8-10.8) K/uL RBC 3.96 L (4.2-5.4) M/uL Hgb 12.3 (12.0-16.0) g/dL Hct 36.2 L (37-47) % MCV 91.4 (80-100) fL MCH 31.1 (25-34) pg MCHC 34.0 (32-36) g/dL RDW Std Deviation 44.1 (36.4-46.3) fL RDW Coeff of Vanessa 13.2 (11.5-14.5) % Plt Count 179 (130-400) K/uL MPV 8.7 (7.4-10.4) fL Immature Gran % (Auto) % Neut % (Auto) % Lymph % (Auto) % Dawson % (Auto) % Eos % (Auto) % Baso % (Auto) % Neut # (Auto) (1.4-6.5) K/uL Lymph # (Auto) (1.2-3.4) K/uL Dawson # (Auto) (0.11-0.59) K/uL Eos # (Auto) (0-0.5) K/uL Baso # (Auto) (0-0.2) K/uL Immature Gran # (Auto) (0.00-0.02) K/uL PT (9.0-12.0) Seconds INR (0.9-1.1) Sodium 142 (136-145) mmol/L Potassium 3.5 (3.5-5.1) mmol/L Chloride 112 H (98-107) mmol/L Carbon Dioxide 25 (21-32) mmol/L Anion Gap 5 (3-11) BUN 10 (6-23) mg/dl Creatinine 0.68 (0.6-1.2) mg/dl Est Cr Clr Drug Dosing 81.1 ml/min Est GFR ( Amer) 99.9 ml/min Est GFR (Non-Af Amer) 86.2 ml/min BUN/Creatinine Ratio 14.7 (10-20) Glucose 91 (70-99(Fasting)) mg/dl Calcium 8.3 L (8.5-10.1) mg/dl Magnesium (1.7-2.4) mg/dl Total Bilirubin (0.2-1.0) mg/dl AST (13-39) U/L ALT (7-52) U/L Alkaline Phosphatase (34-104) U/L Total Protein (6.0-8.3) gm/dl Albumin (3.4-5.0) gm/dl Globulin (2.5-4.0) gm/dl Albumin/Globulin Ratio (0.9-2) Lipase (11-82) U/L Urine Color Urine Appearance (Clear) Urine pH (4.5-7.5) Ur Specific Murray (1.000-1.030) Urine Protein (Negative) Urine Glucose (UA) (Negative) Urine Ketones (Negative) Urine Blood (Negative) Urine Nitrite (Negative) Urine Bilirubin (Negative) Urine Urobilinogen (Negative) Ur Leukocyte Esterase (Negative) Stool Occult Bld Scrn (Negative) SARS-CoV-2, RNA, NAAT NEGATIVE (NEGATIVE) 01/08/22 01/08/22 01/08/22 Range/Units 20:14 18:45 18:45 WBC 3.97 L (4.8-10.8) K/uL RBC 4.09 L (4.2-5.4) M/uL Hgb 13.1 (12.0-16.0) g/dL Hct 37.4 (37-47) % MCV 91.4 (80-100) fL MCH 32.0 (25-34) pg MCHC 35.0 (32-36) g/dL RDW Std Deviation 43.9 (36.4-46.3) fL RDW Coeff of Vanessa 13.1 (11.5-14.5) % Plt Count 195 (130-400) K/uL MPV 9.3 (7.4-10.4) fL Immature Gran % (Auto) 0.0 % Neut % (Auto) 47.3 % Lymph % (Auto) 42.3 % Dawson % (Auto) 7.8 % Eos % (Auto) 2.3 % Baso % (Auto) 0.3 % Neut # (Auto) 1.88 (1.4-6.5) K/uL Lymph # (Auto) 1.68 (1.2-3.4) K/uL Dawson # (Auto) 0.31 (0.11-0.59) K/uL Eos # (Auto) 0.09 (0-0.5) K/uL Baso # (Auto) 0.01 (0-0.2) K/uL Immature Gran # (Auto) 0.00 (0.00-0.02) K/uL PT (9.0-12.0) Seconds INR (0.9-1.1) Sodium 141 (136-145) mmol/L Potassium 3.7 (3.5-5.1) mmol/L Chloride 111 H (98-107) mmol/L Carbon Dioxide 23 (21-32) mmol/L Anion Gap 7 (3-11) BUN 16 (6-23) mg/dl Creatinine 0.78 (0.6-1.2) mg/dl Est Cr Clr Drug Dosing 71.6 ml/min Est GFR ( Amer) 86.8 ml/min Est GFR (Non-Af Amer) 74.9 ml/min BUN/Creatinine Ratio 20.5 H (10-20) Glucose 79 (70-99(Fasting)) mg/dl Calcium 8.8 (8.5-10.1) mg/dl Magnesium (1.7-2.4) mg/dl Total Bilirubin 0.4 (0.2-1.0) mg/dl AST 18 (13-39) U/L ALT 13 (7-52) U/L Alkaline Phosphatase 88 (34-104) U/L Total Protein 6.9 (6.0-8.3) gm/dl Albumin 3.7 (3.4-5.0) gm/dl Globulin 3.2 (2.5-4.0) gm/dl Albumin/Globulin Ratio 1.2 (0.9-2) Lipase 28 (11-82) U/L Urine Color Yellow Urine Appearance Clear (Clear) Urine pH 6.5 (4.5-7.5) Ur Specific Murray 1.004 (1.000-1.030) Urine Protein Negative (Negative) Urine Glucose (UA) Negative (Negative) Urine Ketones Negative (Negative) Urine Blood Negative (Negative) Urine Nitrite Negative (Negative) Urine Bilirubin Negative (Negative) Urine Urobilinogen Negative (Negative) Ur Leukocyte Esterase Negative (Negative) Stool Occult Bld Scrn (Negative) SARS-CoV-2, RNA, NAAT (NEGATIVE) Diagnostic Findings Abdomen/Pelvis CT 01/08/22 18:[address] WITH IV CONTRAST CT DOSE: 613.57 mGy.cm HISTORY: Generalized abd pain, hematochezia TECHNIQUE: Multiaxial CT images of the abdomen and pelvis were performed following the use of intravenous contrast. A dose lowering technique was utili zed adhering to the principles of ALARA. COMPARISON STUDY: Abdomen and pelvis CT 04/07/2020. FINDINGS: Mild chronic interstitial thickening at the lung bases, unchanged. No pneumoperitoneum. No pneumatosis. Dextroscoliosis and degenerative changes again noted within the lumbar spine. Tiny fat-containing umbilical hernia. The liver, gallbladder, pancreas, spleen, adrenal glands are unremarkable. The kidneys enhance normally. No hydronephrosis. The bladder, uterus, bilateral adnexa are within normal limits. Multiple pelvic fluid was are again noted. The main portal vein is patent. Normal caliber abdominal aorta with mild calcified plaque. 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 This remains unchanged. No pelvic free fluid. Colonic diverticulosis. No evidence for acute diverticulitis. No bowel wall thickening or obstruction. Normal appendix. IMPRESSION: 1. No bowel wall thickening or obstruction. 2. Normal appendix. 3. Colonic diverticulosis. No evidence for acute diverticulitis. 4. Additional stable findings as described above. ACT 112: Negative or not required by law. Electronically signed by: Ronn Marmolejo M.D. 01/08/2022 8:26 PM PG Care Time/CCT Total # of Minutes Spent Total Time Spent with Patient: Total time spent is greater than 50% in coordination of care (as documented) at patient's floor/unit and/or counseling patient: Coding Level of Care Code None Diagnoses Acute lower gastrointestinal bleeding K92.2 History of pulmonary embolism Z86.711 Hyperthyroidism E05.90 GERD (gastroesophageal reflux disease) K21.9 Esophagitis presence: without esophagitis HTN (hypertension) I10 Hypertension type: essential hypertension Dental infection K04.7 SVT (supraventricular tachycardia) I47.1 Lichen sclerosus of female genitalia N90.4 (1) GERD (gastroesophageal reflux disease) Esophagitis presence: without esophagitis Qualified Code(s): K21.9 - Gastro- esophageal reflux disease without esophagitis (2) HTN (hypertension) Hypertension type: essential hypertension Qualified Code(s): I10 - Essential (primary) hypertension
[2022-01-09 08:43] LABS: Hematocrit (blood only) 36.2 % (37-47); Hemoglobin 12.3 g/dL (12.0-16.0); Mean Corpuscular Hemoglobin 31.1 pg (25-34); Mean Corpuscular Volume 91.4 fL (80-100); Mean Platelet Volume 8.7 fL (7.4-10.4); Platelet Count 179 K/uL (130-400); RDW Coefficient of Variation 13.2 % (11.5-14.5); RDW Standard Deviation 44.1 fL (36.4-46.3); Red Blood Count 3.96 M/uL (4.2-5.4); White Blood Count 3.82 K/uL (4.8-10.8)
[2022-01-09 08:56] LABS: INR 1.1 (0.9-1.1); Prothrombin Time 11.5 Seconds (9.0-12.0)
[2022-01-09] MEDS ORDERED: DOXYCYCLINE HYCLATE 100 MG CAP PO SCH (09:00)
[2022-01-09 09:11] LABS: BUN Creatinine Ratio 14.7 (10-20); Calcium 8.3 mg/dl (8.5-10.1); Creatinine Clr Calc Pharmacy 81.1 ml/min; Est GFR (African American) 99.9 ml/min; Est GFR (Non-African American) 86.2 ml/min; Potassium 3.5 mmol/L (3.5-5.1)
--- NOTE | 2022-01-09 09:20 | Gastrointestinal Consultation ---
Date of Consultation January 09, 2022 Assessment & Plan (1) BRBPR (bright red blood per rectum): Agree with colorectal surgery that patient should increase her fiber intake. Can utilize 2 TBSP Benefiber or Metamucil daily. Ok to use Anucort suppositories BID upon discharge. Her hemoglobin is stable at 12.3 and she has not had further bleeding since admission. Per colorectal surgery's note, she is to contact them with worsening symptoms. She should follow-up with them upon discharge and they will coordinate with our office if further evaluation with colonoscopy is necessary based on their plans for intervention. Supervising Physician Co-Signing Physician Notes Agree with BETI Paris as above Gen: A+Ox3, cooperative, NAD Chest: CTA B/L CVS: RRR Abd: Soft, NT, ND, +BS Ext: -c/c/e Continue current therapy and supportive care Anusol suppositories as prescribed If she develops further bleeding, I would recommend [facility] Colorectal surgery evaluation ELLEN History of Present Illness Reason for Consultation: Lower GI bleeding Attending Physician: Ela Wagner MD History of Present Illness Patient is a 76 yo female with a history of hemorrhoids and hemorrhoidectomy on chronic anticoagulation therapy who presents for rectal bleeding. Patient was seen 3 days ago by [facility]orectal Surgery for this chronic issue. To prepare for the appointment, she utilized 2 fleet enemas. Colorectal surgery evaluated her, made recommendations to increase fiber intake, and to contact them if bleeding worsened/returned. She notes that after the enema, she began having bright red blood on the toilet paper and stool. No abdominal pain. CT scan of the abdomen/pelvis in the ED unremarkable for acute GI concerns. H/H 12.3/36.2. Last colonoscopy in 2018 indicated internal hemorrhoids and diverticulosis. She notes that she has been avoiding fiber because she thought it may worsen her bleeding. Allergies Allergy/AdvReac Type Severity Reaction Status Date / Time lisinopril AdvReac Intermediate Cough Verified 01/08/22 19:00 Home Medications Medication Instructions Recorded Confirmed Type multivitamin (Multiple Vitamins) 1 tab PO QAM 06/16/18 01/08/22 History calcium carbonate 600 mg calcium 600 mg PO DAILY tab 09/20/19 01/08/22 History (1,500 mg) tablet (Calcium) magnesium oxide 200 mg PO PM tab 09/20/19 01/08/22 History amlodipine 5 mg tablet 5 mg PO HS #90 tab 02/26/21 01/08/22 Rx atorvastatin 10 mg tablet 10 mg PO HS #90 tab 02/26/21 01/08/22 Rx rivaroxaban 20 mg tablet (Xarelto) 20 mg PO PM #90 tab 02/26/21 01/08/22 Rx clobetasol 0.05 % topical cream 1 applic TOPICAL BID 14 Days #30 g 03/31/21 01/08/22 Rx omeprazole 40 mg capsule,delayed 40 mg PO DAILY #90 cap 05/13/21 01/08/22 Rx release cholecalciferol (vitamin D3) 1,250 50,000 unit PO 2XWK #26 cap 09/17/21 01/08/22 Rx mcg (50,000 unit) capsule methimazole 5 mg tablet 5 mg PO QAM #90 tab 12/08/21 01/08/22 Rx metoprolol succinate 50 mg 50 mg PO BID #180 tab 12/08/21 01/08/22 Rx tablet,extended release 24 hr Lactobacillus acidophilus 10,000 mmu cells PO DAILY 01/08/22 01/08/22 History doxycycline hyclate 100 mg capsule 200 mg PO Q12H 01/08/22 01/08/22 History Patient History Medical History (Updated 01/09/22 @ 09:52 by Dorina Sam PA-C) Diverticulitis of intestine with perforation GERD (gastroesophageal reflux disease) Hepatitis A A CHILD History of deep venous thrombosis History of diverticulitis History of pulmonary embolism HTN (hypertension) Hyperlipidemia Hypertension Hyperthyroidism Influenza On anticoagulant therapy Pulmonary emboli HX OF IN 2014 Surgical History H/O left cataract extraction H/O right cataract extraction History of carpal tunnel release History of colonoscopy History of tonsillectomy S/P hemorrhoidectomy Family History Father Stomach cancer Mother Stroke Hypertension Myocardial infarction Brother Prostate cancer Denies family history of Ovarian cancer Breast cancer Colorectal cancer Social History Smoking Status: Never smoker Second Hand Exposure: No; Hx Alcohol Use: No Hx Substance Use: No Preferred Language: Stateless Communication Ability: Effective Visual Impairment: No Limitations Hearing Ability: Normal Supervisor Plate Forming Required: No Beliefs That Will Affect Care: None marital status: Current Living Situation: Spouse current occupational status: retired How many Children do You have: 2 Feels Safe at Home: Yes Childhood Exposure to Second-Hand Smoke: No caffeine: Yes during the past year weight has: remained stable Dental Care, Regularly: Yes Physical Activity Frequency: Daily Seatbelt Use: always Sunscreen Use: Yes Assistive Devices: None Review of Systems Constitutional: no fever and no chills Respiratory: no cough and no dyspnea Cardiovascular: no chest pain Gastrointestinal: + blood in stools; no abdominal pain Musculoskeletal: no problem reported Psychiatric: no problem reported Hematologic / Lymphatic: no unexplained weight loss Physical Exam Constitutional: well developed Neck: normal visual inspection Respiratory: normal respiratory effort Cardiovascular: Rate/Rhythm: regular rate Gastrointestinal (Abdomen): Inspection/Auscultation: abdomen normal to inspection Musculoskeletal: Head/Neck/Chest: normocephalic Psychiatric: Orientation: alert and oriented x 3 Results & Data ([facility]) Vital Signs (Past 12 Hours) Vital Signs Temp Pulse Pulse Resp BP BP Pulse Ox 01/09/22 07:43 36.8 C 80 14 128/80 94 01/09/22 02:25 37.1 C 85 18 157/78 H 98 01/09/22 00:40 95 01/09/22 00:30 91 01/09/22 00:20 96 01/09/22 00:10 95 01/09/22 00:00 94 01/08/22 23:50 94 01/08/22 23:40 93 01/08/22 23:30 95 01/08/22 23:20 93 01/08/22 23:10 96 01/08/22 23:00 95 01/08/22 22:50 97 01/08/22 22:40 98 01/08/22 22:32 141/96 H 96 01/08/22 22:00 78 20 97 PG Care Time/CCT Total # of Minutes Spent Total Time Spent with Patient: Total time spent is greater than 50% in coordination of care (as documented) at patient's floor/unit and/or counseling patient: Coding Level of Care Code 74191 Initial Inpt Care Lvl 3 Diagnoses BRBPR (bright red blood per rectum) K62.5
[2022-01-09] MEDS: ADVANCED PROBIOTIC 1250 MG CAPSULE PO SCH (10:21)
[2022-01-09] MEDS: methIMAzole 5 MG TABLET PO SCH (10:22)
[2022-01-09] MEDS: PANTOprazole 40 MG TAB PO SCH (10:23)
[2022-01-09] MEDS: METOPROLOL SUCC 50MG EXT REL TAB PO SCH ×2 (10:23→21:41)
[2022-01-09] MEDS ORDERED: SODIUM CHLORIDE 0.9% 1000ML 1,000 ML IV SCH (12:15)
[2022-01-09] MEDS ORDERED: MAGNESIUM SULFATE / D5W 1 GM/100 ML BAG IV ONE (12:30)
[2022-01-09] MEDS ORDERED: fentaNYL citrate 100 MCG/2 ML VIAL ONE (14:53)
[2022-01-09] MEDS ORDERED: HEPARIN (PORCINE) 1000 UNIT/ML 10 ML (CATH LAB USE ONLY) ONE (14:53)
[2022-01-09] MEDS ORDERED: MIDAZOLAM HCL 1 MG/ML 2ML VIAL ONE (14:53)
[2022-01-09] MEDS ORDERED: niCARdipine HCL INJ 2.5 MG/ML 10 ML AMP ONE (14:53)
[2022-01-09] MEDS ORDERED: LIDOCAINE 1% LOCAL 20 ML VIAL ONE (14:54)
[2022-01-09] MEDS ORDERED: NITROGLYCERIN/D5W 100MCG/ML 20ML SYR ONE (14:54)
--- NOTE | 2022-01-09 15:02 | Pre Anesthesia Assessment ---
Date of Service January 09, 2022 Pre Sedation Assessment Vital Signs Temp Pulse Pulse Pulse Resp BP BP 01/09/22 14:45 79 17 153/76 H 01/09/22 07:43 98.2 F 80 14 128/80 01/09/22 02:25 98.8 F 85 18 157/78 H 01/09/22 00:40 01/09/22 00:30 01/09/22 00:20 01/09/22 00:10 01/09/22 00:00 01/08/22 23:50 01/08/22 23:40 01/08/22 23:30 01/08/22 23:20 01/08/22 23:10 01/08/22 23:00 01/08/22 22:50 01/08/22 22:40 01/08/22 22:32 141/96 H 01/08/22 22:00 78 20 01/08/22 20:22 67 20 179/98 H 01/08/22 19:40 90 23 01/08/22 19:30 85 27 H 01/08/22 19:27 86 25 H 01/08/22 18:28 20 01/08/22 18:24 97.7 F 97 H 18 152/98 H 01/08/22 18:22 78 78 20 Pulse Ox 01/09/22 14:45 99 01/09/22 07:43 94 01/09/22 02:25 98 01/09/22 00:40 95 01/09/22 00:30 91 01/09/22 00:20 96 01/09/22 00:10 95 01/09/22 00:00 94 01/08/22 23:50 94 01/08/22 23:40 93 01/08/22 23:30 95 01/08/22 23:20 93 01/08/22 23:10 96 01/08/22 23:00 95 01/08/22 22:50 97 01/08/22 22:40 98 01/08/22 22:32 96 01/08/22 22:00 97 01/08/22 20:22 97 01/08/22 19:40 01/08/22 19:30 01/08/22 19:27 01/08/22 18:28 98 01/08/22 18:24 97 04/07/22 18:22 98 Cardiovascular RRR, no murmur, no edema Respiratory normal respiratory effort, lungs clear to auscultation Pre-Sedation Airway Assessment Smoking Status: Never smoker Short, Thick Neck: No Thyromental Distance: > or= 3.5 Finger Breadths Oral Cavity: + WNL Mallampati Class: III ASA: ASA3 NPO Status Date of Last Intake of Fluids: 01/08/22 Date of Last Intake of Solid Food: 01/08/22 Procedure Planning Contraindications for Sedation: none Current Medications Reviewed: Yes Notes The planned sedation has been discussed with the patient. Informed Consent was obtained. I have identified the patient, determined the appropriateness of sedation and have assessed the patient immediately prior to the procedure. All medicine(s) and interventions are by my order.
--- NOTE | 2022-01-09 15:44 | Post Anesthesia Assessment ---
Date of Service January 09, 2022 Post Sedation Assessment Vital Signs Temp Pulse Pulse Pulse Resp BP BP 01/09/22 14:45 79 17 153/76 H 01/09/22 07:43 98.2 F 80 14 128/80 01/09/22 02:25 98.8 F 85 18 157/78 H 01/09/22 00:40 01/09/22 00:30 01/09/22 00:20 01/09/22 00:10 01/09/22 00:00 01/08/22 23:50 01/08/22 23:40 01/08/22 23:30 01/08/22 23:20 01/08/22 23:10 01/08/22 23:00 01/08/22 22:50 01/08/22 22:40 01/08/22 22:32 141/96 H 01/08/22 22:00 78 20 01/08/22 20:22 67 20 179/98 H 01/08/22 19:40 90 23 01/08/22 19:30 85 27 H 01/08/22 19:27 86 25 H 01/08/22 18:28 20 01/08/22 18:24 97.7 F 97 H 18 152/98 H 01/08/22 18:22 78 78 20 Pulse Ox 01/09/22 14:45 99 01/09/22 07:43 94 01/09/22 02:25 98 01/09/22 00:40 95 01/09/22 00:30 91 01/09/22 00:20 96 01/09/22 00:10 95 01/09/22 00:00 94 01/08/22 23:50 94 01/08/22 23:40 93 01/08/22 23:30 95 01/08/22 23:20 93 01/08/22 23:10 96 01/08/22 23:00 95 01/08/22 22:50 97 01/08/22 22:40 98 01/08/22 22:32 96 01/08/22 22:00 97 01/08/22 20:22 97 01/08/22 19:40 01/08/22 19:30 01/08/22 19:27 01/08/22 18:28 98 01/08/22 18:24 97 04/07/22 18:22 98 Recovery Score Activity: Moves 4 extremities Respiration: Deep Breath/Cough Circulation: +/-20% PreAnes Value Consciousness: Fully Awake Oxygen Saturation: O2 needed for >90% Discharge Sedation Level of Care: Fast Track Phase II Post Sedation Plan On clinical assessment, the patient appears to have tolerated the sedation without complications. Patient is recovering as anticipated. Patient will continue to be monitored by nursing and may be discharged when sedation discharge criteria are met per below protocol. Upon Completions of procedure up to 15 minutes continue every 5 minute vital signs and the P.A.R. score; then discharge to a Phase I or Fast Track to Phase II per the following guidelines: * Discharge Patient to appropriate Phase II area if PAR is 8 or greater or return to pre- procedure baseline. The post - procedure orders will be as directed. * If PAR score is less than 8 or not return to pre-procedure baseline then patient will follow Phase I monitoring till PAR is reached for Phase II. The Phase I may be done in procedure room or may call to secure a Phase I area. * If naloxone or flumazenil are used for reversal, hold in Phase I for continued monitoring from when last reversal dose was given for a minimum of 60 minutes or longer pending the nurse and/or physician discretion of patient condition before discharge to Phase II. Please call the Sedation Physician to re-evaluate and complete post-note for discharge to Phase II area. Do NOT discharge from procedure sedation or Phase 1 until post- sedation evaluation note is complete by procedure /sedation MD Sedation Discharge Instructions to be given to the patient at discharge to home.
--- NOTE | 2022-01-09 15:50 | Cardiac Catheterization ---
[facility] Data: Radiosonde Specialist Cardiac Status Clinical evaluation leading to the procedure CAD Presenation: Positive Stress Test Diagnostic Physicians Name: Yovanny De Jesus MD Closure Device Recommendations: Medical Therapy and/or Counseling Cardiac Cath Procedure Full Procedure Date January 09, 2022 Pre-Procedure Diagnosis Pre-Procedure Diagnosis: Angina and Positive Stress Test AUC Score AUC Score: 7 Post-Procedure Diagnosis Post-Procedure Diagnosis: Mild CAD and Normal Intracardiac Pressures Procedure(s) Performed Procedure(s) Performed: Coronary Angiography and Left Heart Cath Dairy Nutrition Consultant Yovanny De Jesus MD Brand Director(s) Showers Estimated Blood Loss Estimated Blood Loss: 10 Medication(s) Medication(s): Fentanyl, Lidocaine 1%, Nicardipine, Nitroglycerin and Versed Summary of Findings Indication: Exertional dyspnea, abnormal stress test Access: 6 Fr right radial artery Catheters: [place] Findings: LM -normal caliber, no significant disease LAD -medium caliber, 30% mid stenosis with myocardial bridging just after medium D2. Distal vessel small with very mild diffuse disease and sluggish (PARDEEP II flow). Circumflex -medium caliber, luminal irregularities. Medium OM 2 without disease RCA -dominant, large caliber vessel, no significant disease LVEDP -7 Arterial Closure: TR band Summary: 1. Minimal nonobstructive coronary artery disease -30% mid LAD with myocardial bridging Sluggish distal LAD flow, possible microvascular dysfunction. Flow responsive to IC nicardipine roberto 2. Normal intracardiac filling pressure Recommendations: No high risk CAD. Okay to proceed with any noncardiac surgeries or procedures. Long-term for exertional fatigue could consider increased CCB or trial of long- acting nitroglycerin Continue ASCVD risk factor modification Hemodynamics Rest Ao:: 115/74/93 Final Ao: 117/64/86 LV: 122/7 Recommendations Recommendations: Medical Therapy and/or Counseling Specimens Specimens: None Radiation Exposure (mGy) 603 Contrast (mls) 45 Anesthesia Moderate 6299-2904 Procedural Complication(s) None Disposition PCU I attest to the content of the Intraoperative Record and any orders documented therein. Any exceptions are noted below. [facility] Card Cath Procedure Codes Cardiac Catheterization Procedure 1: Cardiovascular Cath Procedures: 22195 Coronaries and LHC (+/-LV) Moderate Sedation Procedure 1: Sedation/Anesthesia: 47429 Mod Sedation by the same physician;Init15 Min Child Age 5 & Up PG Care Time/CCT Total # of Minutes Spent Total Time Spent with Patient: Total time spent is greater than 50% in coordination of care (as documented) at patient's floor/unit and/or counseling patient:
--- NOTE | 2022-01-09 16:17 | Cardiology Consultation ---
Date of Consultation January 09, 2022 Assessment & Plan (1) Abnormal stress test: 2. Bright red blood per rectumsuspected hemorrhoidal bleeding 3. Paroxysmal SVT, atrial tachycardia 4. 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 Question chronotropic incompetence 6. Hypertension Patient underwent cardiac cath today. Has only mild nonobstructive disease. No high risk lesions If were to need repeat endoscopy or colorectal surgery okay to proceed from a cardiac standpoint. Continued long-term anticoagulation per PCP and primary team. Long-term for her exertional fatigue may try reducing metoprolol for questionable chronotropic incompetence versus additional CCB or long-acting nitroglycerin for possible microvascular function. From a cardiac standpoint okay with discharge when TR band removed. Follow-up with me in 1 month. History of Present Illness Attending Physician: Ela Wagner MD History of Present Illness Mrs. Hernandez is a very pleasant 76-year-old woman known to me from the outpatient setting who was admitted yesterday in the setting of lower GI bleed. 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 Patient has endorsed longstanding exertional fatigue. Exercise stress echo negative for ischemia but exercise capacity reduced, chronotropic incompetence on beta-roberto. Underwent Lexiscan SPECT which showed LVEF 77% with mid anterior to apical perfusion defect (question breast attenuation versus true ischemia). Has been scheduled to undergo cath later this month. Has had prior hemorrhoidal bleeding in the past most recently while [place]. Seen earlier this week by [facility] colorectal surgery, no plans for operative management. Had several episodes following her appointment bright red blood per rectum. No additional bleeding since admission. Hemoglobin stable at 12.4. Allergies Allergy/AdvReac Type Severity Reaction Status Date / Time lisinopril AdvReac Intermediate Cough Verified 01/08/22 19:00 Home Medications Medication Instructions Recorded Confirmed Type multivitamin (Multiple Vitamins) 1 tab PO QAM 06/16/18 01/08/22 History calcium carbonate 600 mg calcium 600 mg PO DAILY tab 09/20/19 01/08/22 History (1,500 mg) tablet (Calcium) magnesium oxide 200 mg PO PM tab 09/20/19 01/08/22 History amlodipine 5 mg tablet 5 mg PO HS #90 tab 02/26/21 01/08/22 Rx atorvastatin 10 mg tablet 10 mg PO HS #90 tab 02/26/21 01/08/22 Rx rivaroxaban 20 mg tablet (Xarelto) 20 mg PO PM #90 tab 02/26/21 01/08/22 Rx clobetasol 0.05 % topical cream 1 applic TOPICAL BID 14 Days #30 g 03/31/21 01/08/22 Rx omeprazole 40 mg capsule,delayed 40 mg PO DAILY #90 cap 05/13/21 01/08/22 Rx release cholecalciferol (vitamin D3) 1,250 50,000 unit PO 2XWK #26 cap 09/17/21 01/08/22 Rx mcg (50,000 unit) capsule methimazole 5 mg tablet 5 mg PO QAM #90 tab 12/08/21 01/08/22 Rx metoprolol succinate 50 mg 50 mg PO BID #180 tab 12/08/21 01/08/22 Rx tablet,extended release 24 hr Lactobacillus acidophilus 10,000 mmu cells PO DAILY 01/08/22 01/08/22 History doxycycline hyclate 100 mg capsule 200 mg PO Q12H 01/08/22 01/08/22 History Patient History Medical History (Updated 01/09/22 @ 09:52 by Dorina Sam PA-C) Diverticulitis of intestine with perforation GERD (gastroesophageal reflux disease) Hepatitis A A CHILD History of deep venous thrombosis History of diverticulitis History of pulmonary embolism HTN (hypertension) Hyperlipidemia Hypertension Hyperthyroidism Influenza On anticoagulant therapy Pulmonary emboli HX OF IN 2014 Surgical History H/O left cataract extraction H/O right cataract extraction History of carpal tunnel release History of colonoscopy History of tonsillectomy S/P hemorrhoidectomy Family History Father Stomach cancer Mother Stroke Hypertension Myocardial infarction Brother Prostate cancer Denies family history of Ovarian cancer Breast cancer Colorectal cancer Social History Smoking Status: Never smoker Second Hand Exposure: No; Hx Alcohol Use: No Hx Substance Use: No Preferred Language: Lithuanian Communication Ability: Effective Visual Impairment: No Limitations Hearing Ability: Normal Kst Operator Required: No Beliefs That Will Affect Care: None marital status: Current Living Situation: Spouse current occupational status: retired How many Children do You have: 2 Feels Safe at Home: Yes Childhood Exposure to Second-Hand Smoke: No caffeine: Yes during the past year weight has: remained stable Dental Care, Regularly: Yes Physical Activity Frequency: Daily Seatbelt Use: always Sunscreen Use: Yes Assistive Devices: None Review of Systems Review of Systems: All systems reviewed & are unremarkable except as noted in HPI & below Physical Exam Physical Exam: General: Comfortable HEENT: Sclerae anicteric Lungs: Clear to auscultation bilaterally, no crackles or wheezes Cardiac: Regular rate and rhythm, no murmurs. Vascular: 2+ radial, DP pulses. No bruits Abdomen: Soft, nontender Extremities: Well perfused, no peripheral edema Neuro: Nonfocal Psych: Alert orient x3, normal affect and mood Results & Data ([facility]) Vital Signs (Past 12 Hours) Vital Signs Temp Pulse Resp BP Pulse Ox 01/09/22 15:40 77 18 140/92 95 01/09/22 14:45 79 17 153/76 H 99 01/09/22 07:43 98.2 F 80 14 128/80 94 PG Care Time/CCT Total # of Minutes Spent Total Time Spent with Patient: Total time spent is greater than 50% in coordination of care (as documented) at patient's floor/unit and/or counseling patient: Coding Level of Care Code 43981 Inpt Consult Level 4 Diagnoses Abnormal stress test R94.39
[2022-01-09] MEDS: HYDROCORTISONE ACETATE 25 MG SUPP PR SCH ×2 (16:29→21:41)
[2022-01-09] MEDS: PSYLLIUM 58.6% POWDER PACKET PO SCH (16:29)
[2022-01-09] MEDS ORDERED: DOXYCYCLINE HYCLATE 100 MG in DEXTROSE 5% 100 ML IV ONE (16:30)
[2022-01-09] MEDS ORDERED: ACETAMINOPHEN 325 MG TAB PO PRN (20:24)
[2022-01-09] MEDS ORDERED: amLODIPine BESYLATE 5 MG TAB PO SCH (21:00)
[2022-01-09] MEDS ORDERED: ATORVASTATIN 10 MG TAB PO SCH (21:00)
[2022-01-10 07:17] LABS: Basophils # (auto) 0.01 K/uL (0-0.2); Basophils % (auto) 0.2 %; Eosinophils # (auto) 0.09 K/uL (0-0.5); Eosinophils % (auto) 2.2 %; Hematocrit (blood only) 37.5 % (37-47); Hemoglobin 12.7 g/dL (12.0-16.0); Immature Granulocytes # (auto) 0.01 K/uL (0.00-0.02); Immature Granulocytes % (auto) 0.2 %; Lymphocytes # (auto) 1.24 K/uL (1.2-3.4); Lymphocytes % (auto) 30.8 %; Mean Corpuscular Hemoglobin 31.1 pg (25-34); Mean Corpuscular Hgb Conc 33.9 g/dL (32-36); Mean Corpuscular Volume 91.9 fL (80-100); Mean Platelet Volume 9.2 fL (7.4-10.4); Monocytes # (auto) 0.33 K/uL (0.11-0.59); Monocytes % (auto) 8.2 %; Neutrophils # (auto) 2.34 K/uL (1.4-6.5); Neutrophils % (auto) 58.4 %; Platelet Count 186 K/uL (130-400); RDW Coefficient of Variation 13.3 % (11.5-14.5); RDW Standard Deviation 44.4 fL (36.4-46.3); Red Blood Count 4.08 M/uL (4.2-5.4); White Blood Count 4.02 K/uL (4.8-10.8)
--- NOTE | 2022-01-10 07:28 | Hospitalist Progress Note ---
Date of Service January 10, 2022 Assessment & Plan Admission and Anticipated Discharge Date Admission Date: January 09, 2022 Results & Data Results & Data ([facility]) Vital Signs (Past 12 Hours) Vital Signs Temp Pulse Pulse Resp BP Pulse Ox 01/10/22 03:26 36.6 C 71 20 122/81 97 01/10/22 00:23 71 01/09/22 22:47 36.8 C 73 20 121/74 96 01/09/22 20:25 36.9 C 80 20 119/63 96 Laboratory Results 01/10/22 01/10/22 01/10/22 Range/Units 06:32 06:32 06:32 WBC 4.02 L (4.8-10.8) K/uL RBC 4.08 L (4.2-5.4) M/uL Hgb 12.7 (12.0-16.0) g/dL Hct 37.5 (37-47) % MCV 91.9 (80-100) fL MCH 31.1 (25-34) pg MCHC 33.9 (32-36) g/dL RDW Std Deviation 44.4 (36.4-46.3) fL RDW Coeff of Vanessa 13.3 (11.5-14.5) % Plt Count 186 (130-400) K/uL MPV 9.2 (7.4-10.4) fL Immature Gran % (Auto) 0.2 % Neut % (Auto) 58.4 % Lymph % (Auto) 30.8 % Duval % (Auto) 8.2 % Eos % (Auto) 2.2 % Baso % (Auto) 0.2 % Neut # (Auto) 2.34 (1.4-6.5) K/uL Lymph # (Auto) 1.24 (1.2-3.4) K/uL Duval # (Auto) 0.33 (0.11-0.59) K/uL Eos # (Auto) 0.09 (0-0.5) K/uL Baso # (Auto) 0.01 (0-0.2) K/uL Immature Gran # (Auto) 0.01 (0.00-0.02) K/uL PT Pending (9.0-12.0) Seconds INR Pending (0.9-1.1) Sodium Pending (136-145) mmol/L Potassium Pending (3.5-5.1) mmol/L Chloride Pending (98-107) mmol/L Carbon Dioxide Pending (21-32) mmol/L Anion Gap Pending (3-11) BUN Pending (6-23) mg/dl Creatinine Pending (0.6-1.2) mg/dl Est Cr Clr Drug Dosing Pending ml/min Est GFR ( Amer) Pending ml/min Est GFR (Non-Af Amer) Pending ml/min BUN/Creatinine Ratio Pending (10-20) Glucose Pending (70-99(Fasting)) mg/dl Calcium Pending (8.5-10.1) mg/dl Magnesium (1.7-2.4) mg/dl Troponin I (0-0.04) ng/ml Stool Occult Bld Scrn (Negative) 01/09/22 01/09/22 01/09/22 Range/Units 13:38 08:35 08:35 WBC (4.8-10.8) K/uL RBC (4.2-5.4) M/uL Hgb (12.0-16.0) g/dL Hct (37-47) % MCV (80-100) fL MCH (25-34) pg MCHC (32-36) g/dL RDW Std Deviation (36.4-46.3) fL RDW Coeff of Vanessa (11.5-14.5) % Plt Count (130-400) K/uL MPV (7.4-10.4) fL Immature Gran % (Auto) % Neut % (Auto) % Lymph % (Auto) % Duval % (Auto) % Eos % (Auto) % Baso % (Auto) % Neut # (Auto) (1.4-6.5) K/uL Lymph # (Auto) (1.2-3.4) K/uL Duval # (Auto) (0.11-0.59) K/uL Eos # (Auto) (0-0.5) K/uL Baso # (Auto) (0-0.2) K/uL Immature Gran # (Auto) (0.00-0.02) K/uL PT (9.0-12.0) Seconds INR (0.9-1.1) Sodium (136-145) mmol/L Potassium (3.5-5.1) mmol/L Chloride (98-107) mmol/L Carbon Dioxide (21-32) mmol/L Anion Gap (3-11) BUN (6-23) mg/dl Creatinine (0.6-1.2) mg/dl Est Cr Clr Drug Dosing ml/min Est GFR ( Amer) ml/min Est GFR (Non-Af Amer) ml/min BUN/Creatinine Ratio (10-20) Glucose (70-99(Fasting)) mg/dl Calcium (8.5-10.1) mg/dl Magnesium 1.8 (1.7-2.4) mg/dl Troponin I < 0.03 (0-0.04) ng/ml Stool Occult Bld Scrn Negative (Negative) 01/09/22 01/09/22 01/09/22 Range/Units 08:35 08:35 08:35 WBC 3.82 L (4.8-10.8) K/uL RBC 3.96 L (4.2-5.4) M/uL Hgb 12.3 (12.0-16.0) g/dL Hct 36.2 L (37-47) % MCV 91.4 (80-100) fL MCH 31.1 (25-34) pg MCHC 34.0 (32-36) g/dL RDW Std Deviation 44.1 (36.4-46.3) fL RDW Coeff of Vanessa 13.2 (11.5-14.5) % Plt Count 179 (130-400) K/uL MPV 8.7 (7.4-10.4) fL Immature Gran % (Auto) % Neut % (Auto) % Lymph % (Auto) % [place] % (Auto) % Eos % (Auto) % Baso % (Auto) % Neut # (Auto) (1.4-6.5) K/uL Lymph # (Auto) (1.2-3.4) K/uL [place] # (Auto) (0.11-0.59) K/uL Eos # (Auto) (0-0.5) K/uL Baso # (Auto) (0-0.2) K/uL Immature Gran # (Auto) (0.00-0.02) K/uL PT 11.5 (9.0-12.0) Seconds INR 1.1 (0.9-1.1) Sodium 142 (136-145) mmol/L Potassium 3.5 (3.5-5.1) mmol/L Chloride 112 H (98-107) mmol/L Carbon Dioxide 25 (21-32) mmol/L Anion Gap 5 (3-11) BUN 10 (6-23) mg/dl Creatinine 0.68 (0.6-1.2) mg/dl Est Cr Clr Drug Dosing 81.1 ml/min Est GFR ( Amer) 99.9 ml/min Est GFR (Non-Af Amer) 86.2 ml/min BUN/Creatinine Ratio 14.7 (10-20) Glucose 91 (70-99(Fasting)) mg/dl Calcium 8.3 L (8.5-10.1) mg/dl Magnesium (1.7-2.4) mg/dl Troponin I (0-0.04) ng/ml Stool Occult Bld Scrn (Negative) PG Care Time/CCT Total # of Minutes Spent Total Time Spent with Patient: Total time spent is greater than 50% in coordination of care (as documented) at patient's floor/unit and/or counseling patient: Coding
[2022-01-10 07:29] LABS: INR 1.1 (0.9-1.1); Prothrombin Time 11.6 Seconds (9.0-12.0)
[2022-01-10 08:09] LABS: BUN Creatinine Ratio 16.9 (10-20); Calcium 8.3 mg/dl (8.5-10.1); Creatinine Clr Calc Pharmacy 77.7 ml/min; Est GFR (African American) 97.3 ml/min; Est GFR (Non-African American) 83.9 ml/min
[2022-01-10] MEDS: HYDROCORTISONE ACETATE 25 MG SUPP PR SCH (09:14)
[2022-01-10] MEDS: methIMAzole 5 MG TABLET PO SCH (09:15)
[2022-01-10] MEDS: ADVANCED PROBIOTIC 1250 MG CAPSULE PO SCH (09:15)
[2022-01-10] MEDS: METOPROLOL SUCC 50MG EXT REL TAB PO SCH (09:15)
[2022-01-10] MEDS: PANTOprazole 40 MG TAB PO SCH (09:16)
[2022-01-10] MEDS: PSYLLIUM 58.6% POWDER PACKET PO SCH (09:17)
--- NOTE | 2022-01-10 12:24 | Electrocardiogram Report ---
Test Reason : Blood Pressure : / mmHG Vent. Rate : 086 BPM Atrial Rate : 086 BPM P-R Int : 176 ms QRS Dur : 090 ms QT Int : 370 ms P-R-T Axes : 034 016 -26 degrees QTc Int : 442 ms Sinus rhythm with Premature atrial complexes Septal infarct , age undetermined Abnormal ECG When compared with ECG of 24-JUN-2019 13:31, Septal infarct is now Present Confirmed by Miguel Mullins ([id number]) on 01/10/2022 12:23:48 PM Referred By: REFERRED SELF Confirmed By:Miguel Mullins
--- NOTE | 2022-01-10 14:53 | Discharge Summary ---
Date of Service January 10, 2022 Admission HPI Per Admitting Provider 76yo female with history of internal hemorrhoids, diverticulosis presenting with rectal bleed x 3 days. Patient reports a significant amount of bright red blood in the toilet bows as well as on the toilet paper and possibly on the stool itself for the last 3 days. The bleeding started slowly and has been increasing in amount. She has some lower abdominal pressure as well as some bloating but denies abdominal pain. No diarrhea. She has a BM daily and states that she does not need to strain. She administered an enema at home last week in preparation for an appointment with [place] [facility] She reports some right sided rectal pain since the enema. Patient is on Rivaroxaban anticoagulation following a DVT and PE diagnosed in 2014. States that she is on lifelong blood thinners. Last dose was 01/07/22 PM. No antiplatelets. She has a remote history of a LGIB (thought to be secondary to hemorrhoidal bleed) requiring transfusion of 2u PRBCs. Also history of diverticulitis with perforation. Colonoscopy in [address] Loyola which revealed sigmoid diverticulosis and internal hemorrhoids. She denies chest pain, cough, SOB, fever, chills, nausea, abdominal pain, diarrhea. No additional complaints at this time. Admission requested by ER for ongoing blood loss, history of anticoagulation. Admission Exam Per Admitting Provider General: patient resting comfortably, NAD, non-toxic in appearance, AA&O x 4 Skin: warm, dry, intact, no rashes or lesions HEENT: NC/AT, PERRL, EOMI, anicteric sclera, conjunctiva without injection, external ear normal to inspection and nontender, nares patent, moist mucus membranes, dentition intact, no oropharyngeal lesions, neck supple, trachea midline, no LAD, no thyromegaly, no JVD Heart: +S1/S2, regular, no m/r/g Lungs: equal air entry bilaterally, no rales/rhonchi/wheezes Abd: +BS, soft, NT/ND, no masses/organomegaly/ascites Ext: warm, 2+ pulses in UE/LE bilaterally, no clubbing/cyanosis or edema Neuro: nonfocal, patient AA&O x 4, speech intact, no facial droop, moving all extremities on command with equal strength 5/5 Rectal exam per ER: reported bright red blood Principal Diagnosis Hemorrhoidal Bleeding Discharge Exam General: WN/WD female sitting up in hospital bed, NAD Eyes anicteric, pupils equal/reactive, mmm, trachea midline, no deviation Lungs CTAB, no w/c/r, on room air CV: RRR, no m/r/g, no edema, no calf tenderness/erythema, R radial site c/d/i pulse palpable. +recent IV infiltrated L forearm from recent peripheral IV, no erythema/spreading GI: +BS, soft, mild discomfort reported but non-tender to palpation, no guarding/rigidity, no HSM : no fernando Neuro/EXt: moves all extremities, speech clear, no facial droop, no focal deficit Psych: AOx3, pleasant and cooperative Discharge Data Allergies Allergy/AdvReac Type Severity Reaction Status Date / Time lisinopril AdvReac Intermediate Cough Verified 01/08/22 19:00 Consultations 01/08/22 22:21 ED Decision to Admit Stat 01/09/22 01:56 Consult Gastroenterology Routine 01/09/22 08:08 Consult Cardiology Routine Procedures Performed Operation Date: 01/09/22 14:30 Actual Procedures p Cath, Left with Cors and Vent - Jackson De Jesus MD s Cineradiography w/Routine Exam - Jackson De Jesus MD Ordered Studies Abdomen/Pelvis CT 01/08/22 18:[address] WITH IV CONTRAST CT DOSE: 613.57 mGy.cm HISTORY: Generalized abd pain, hematochezia TECHNIQUE: Multiaxial CT images of the abdomen and pelvis were performed following the use of intravenous contrast. A dose lowering technique was utilized adhering to the principles of ALARA. COMPARISON STUDY: Abdomen and pelvis CT 04/07/2020. FINDINGS: Mild chronic interstitial thickening at the lung bases, unchanged. No pneumoperitoneum. No pneumatosis. Dextroscoliosis and degenerative changes again noted within the lumbar spine. Tiny fat-containing umbilical hernia. The liver, gallbladder, pancreas, spleen, adrenal glands are unremarkable. The kidneys enhance normally. No hydronephrosis. The bladder, uterus, bilateral adnexa are within normal limits. Multiple pelvic fluid was are again noted. The main portal vein is patent. Normal caliber abdominal aorta with mild calcified plaque. 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 This remains unchanged. No pelvic free fluid. Colonic diverticulosis. No evidence for acute diverticulitis. No bowel wall thickening or obstruction. Normal appendix. IMPRESSION: 1. No bowel wall thickening or obstruction. 2. Normal appendix. 3. Colonic diverticulosis. No evidence for acute diverticulitis. 4. Additional stable findings as described above. ACT 112: Negative or not required by law. Electronically signed by: Ronn Marmolejo M.D. 01/08/2022 8:26 PM Hospital Course (1) Acute lower gastrointestinal bleeding: Suspect diverticular vs hemorrhoidal bleed. Patient afebrile, HD stable. H/H acceptable. Had not reported issues with constipation/straining at home but was to have f/u with colorectal surgeon [place] [facility] and given herself enema last week prior to that appointment Held Xarelto on admission, hgb was 13.1 on admission Given supplemental IVF, GI was consulted CTAP without abnormality but was obtained given diverticulitis with perforation back in 2019 Did report continued occasional bright red blood in stool but hgb remained stable. --> Fecal occult tested to stool not included in "bright red" and this was negative, suggesting hemorrhoidal bleeding GI consulted, no plans for scope. --Requested patient utilize anusol suppositories (which she wanted to wait until she got home) BID. Also to increased metamucil to held fiber but patient does report issues with bloating with this. -- Provided patient with good rx coupon as mazin called me and said rx would be 180$. Coupon provided to keep cost <45$ Messaged navigator to assist with setting up repeat follow up with colorectal surgeon as just seen. They are to call early this upcoming week. She is to call sooner/return to ER if any worsening bleeding Xarelto resumed. F/u GI OF note, was going to feed but patient with recent abn stress and had been reporting palpitations/hx SVT and planned for cardiac cath 02/[address] De Jesus. --> Discussed with patient/Dr De Jesus performed while inpatient. NEGATIVE. No issues post-cath. Provided instructions for post-cath/limitations and can f/u routine (2) SVT (supraventricular tachycardia): Hx of palpitations/paroxysmal SVT, followed by Dr. De Jesus. Also with mild mitral valve disease, chronic venous insufficient, HLD/HLD Prior cardiovascular studies: Exercise stress echo 09/2021: 2:38 on [place], 4.6 METs. 80% MPHR with no ischemia. LVEF 60%, mild MR. Exercise stress echo (08/2017): Exercise 6 minutes 54 seconds, achieved 6.9 Mets. Negative for ischemia at 88% MPHR normal resting LV size and function, no significant valvular pathology Holter monitor (08/2017): Sinus rhythm minimum 49, maximum 113, average 73. Limited variation initially concerning for chronotropic incompetence. Very brief episode of SVT lasting several beats Event monitor 01/19/2016 with atrial tachycardia. Venous ultrasound 07/2015: right side is only minimally dilated with reflux only at the proximal segments left GSV and SSV are dilated with significant reflux. Arterial ultrasound 07/2015: ABIs normal. Less than 50 percent stenosis bilaterally. Cardiac Stress Test December 2019 -- ABN Cards consulted, EKG on admission with SR PAC, ST/T wave abn but no CP. Trop negative Cards consulted s/p cath, nonobstructive disease and can f/u outpatient (3) History of pulmonary embolism: In 2014 DVT/PE - patient states she is on lifelong anticoagulation. Last dose 01/07/22 PM Held Rivaroxaban in setting of reported bleed. CBC stable on repeat but monitoring BM/CBC in AM and likely resume. No LE symptoms at this time/shortness of breath, SCDs ordered in meantime, encouraging ambulation Resumed Xarelto at discharge. No hypotension/hypoxia or reported symptoms (4) Hyperthyroidism: Hx Graves, chronic and follows with Dr Harley. Last TSH December wnl 1.7 and maintained on methimazole 5mg daily, continued and she should continue routine follow up (5) GERD (gastroesophageal reflux disease): Chronic Continued omeprazole 40mg daily (6) HTN (hypertension): Blood pressure stable, patient maintained on amlodipine, metoprolol which were continued (7) Dental infection: Patient had recent extraction with implant. Completed course Doycycline (8) Lichen sclerosus of female genitalia: hx of, follows with Dr Cruz and recently seen with reported improvement with clobestasol Total Time Total Time Spent Total Time Spent (In Minutes): 40 Discharge Plan Discharge Items Patient Disposition: Home - Self-Care Reason For Visit: RECTAL BLEEDING Discharge Diagnosis: Hemorrhoidal Bleeding, Prior ABnormal Stress Test Goals: You have been hospitalized for an acute medical problem. During your stay at [facility], we have made an effort to correct the problem that brought you to the hospital while keeping you as comfortable as possible. Medications were used to bring your condition under control and your discharge instructions will include directions for any medications you should take after leaving the hospital. Please make sure you see your Primary Care Provider as part of your follow up plan. Activity: Per Instructions section Driving/Machine Use: Resume 3 days after discharge Non-emergency contact: Primary Care Provider Call non-emergency contact if: you have any medication questions, your symptoms worsen and your pain is not controlled Follow-up/Referrals: Sixto Loyola DO [Physician] - Koby Ambrocio III, CRNP [Primary Care Provider] - 01/19/22 4:00 pm (Please follow up with EVIE Iraheta on Wednesday01/19/22 at 4:00 pm. Please arrive to the office at 3:45 pm for your appointment. If you are unable to keep this appointment, please call the office to reschdule at [phone].) Brenna Murillo MD [Outside Practitioners] - Diet: Heart Healthy Addtl Attending Provider Instructions: You have been hospitalized for bleeding in your stool. Imaging of your abdomen did not show any evidence for diverticulitis or active infection. You were evaluated by GI and no plans for scope at this time and you are to increase your fiber intake with metamucil and should continue Anusol suppositories twice daily. You should follow up with your colorectal surgeon in the next 1-2 weeks for monitoring. They will coordinate with Dr Loyola's office if outpatient scope is needed in the future. Continue your other agents for bowel regimen at home to ensure not straining to have a bowel movement as this can worsening hemorrhoidal bleeding. Your hemoglobin has been consistently stable and your Xarelto is to be resumed this evening. Of note, your prior abnormal stress test was reviewed and that's why I consulted Dr De Jesus and we were able to perform your cardiac catheterization while inpatient. Thankfully this was NEGATIVE for any blockages. You can follow up outpatient for routine monitoring. Follow up with your PCP in the next 7-10 days to monitor progress after discharge. Please return to ER for any worsening bleeding, chest pain, shortness of breath, inability to keep up with oral hydration, or for any other symptoms concerning for you. Take care! Addtl Pediatric Medical Assistant Provider Instructions: ACTIVITY RECOMMENDATIONS: Excess manipulation of the wrist should be avoided for the next 24-48 hours. * No lifting over 2 pounds (approximately a 1/2 gallon of milk) with the utilized arm for 24 hours. * No strenuous activity such as bowling or tennis for 3 days. * Keep the site of the procedure covered with a bandage for 24 hours. *You may shower the day after the procedure. Do not take a tub bath or submerge the puncture site in water for the next 3 days. *Do not operate any motorized equipment for 3 days. SPECIAL CARE INSTRUCTIONS: The site may be slightly bruised and sore following your procedure. Should any of the following occur, contact the Dr. who performed your procedure. 1. Redness/inflammation, swelling, chills, or fever, or colored drainage at procedure site within 3-7 days after your procedure. 2. Coldness, discoloration, ongoing numbness, severe pain, or swelling. Expect mild tingling of hand and tenderness at the puncture site for up to three days. If this persists beyond three days, or other symptoms develop, notify the Dr. who performed your procedure. BLEEDING: If the procedure site on your wrist begins to bleed, do not panic 1. Place 1 or 2 fingers firmly just slightly above the insertion site to stop the bleeding. You may be able to feel your pulse as you hold pressure. 2. Lift your finger after 5 minutes to see if the bleeding has stopped. 3. Once the bleeding has stopped, gently wipe the wrist area clean with a bandage. * If the bleeding from your wrist does not stop after 10 minutes, or if there is a large amount of bleeding or spurting, call 911 ([address] yourself to the [facility]). SKIN IRRITATION: * You may experience some redness and/or swelling in the area where radiation was administered. If any skin irritation occurs, please contact your family physician. FOLLOW UP VISIT: Keep any scheduled doctor appointments. Pending Studies at Discharge: No Stand-Alone Forms: My [facility] [employer] Medications and DC Order Prescriptions: New polyethylene glycol 3350 [Miralax] 17 gram Powder In Packet 17 g PO DAILY PRN (Reason: constipation) Qty: 30 RF: 0 Metamucil (with sugar) 3.4 gram Powder In Packet 2 ea PO QAM Qty: 30 RF: 0 hydrocortisone acetate [Anusol-HC] 25 mg suppository 25 mg MA BID Qty: 12 RF: 0 Continued magnesium oxide 200 mg magnesium tablet 200 mg PO PM RF: 0 omeprazole 40 mg capsule,delayed release(DR/EC) 40 mg PO DAILY Qty: 90 RF: 1 metoprolol succinate 50 mg tablet extended release 24 hr 50 mg PO BID Qty: 180 RF: 1 methimazole 5 mg tablet 5 mg PO QAM Qty: 90 RF: 1 cholecalciferol (vitamin D3) 1,250 mcg (50,000 unit) capsule 50,000 unit PO 2XWK Qty: 26 RF: 3 clobetasol 0.05 % cream 1 applic topical BID 14 Days Qty: 30 RF: 0 Xarelto 20 mg tablet 20 mg PO PM Qty: 90 RF: 3 atorvastatin 10 mg tablet 10 mg PO HS Qty: 90 RF: 3 amlodipine 5 mg tablet 5 mg PO HS Qty: 90 RF: 3 multivitamin [Multiple Vitamins] Tablet 1 tab PO QAM RF: 0 calcium carbonate [Calcium 600] 600 mg calcium (1,500 mg) tablet 600 mg PO DAILY RF: 0 Lactobacillus acidophilus Capsule 10,000 mmu cells PO DAILY RF: 0 Discontinued doxycycline hyclate 100 mg capsule 200 mg PO Q12H RF: 0 Discharge Orders: Discharge Order (Routine); Ordered 01/10/22 Ordered By: Lyndsay York/Other Patient Handouts: Polyethylene Glycol 3350 Powder for Oral Solution 17 gm, Anusol-HC Rectal Suppository 25 mg, Metamucil Powder for Oral Suspension 3,400 mg, Cardiac Catheterization Dc Admission Data Admit Date/Time: 01/09/22 00:56 Attending Provider: Ela Wagner Admit Provider: Iram Rosa Primary Care Provider: Koby Ambrocio III Other Providers: Iram Rosa ; Sixto Loyola ; Sam Ibarra Other Interventions: Discharge Summary Assessment (RN) Last Done: 01/10/22 11:27 Supervising Physician Co-Signing Physician Notes PA Supervision Note: I personally saw and examined the patient. I verified all [place] points and agree with RIVKA Dennison with the following exceptions and/or additions: S-patient feeling well, only scant amount of bright red blood with bowel movement this morning, no abdominal pains, no chest pains or shortness of breath. Stable for discharge home O- Vitals reviewed Gen: AAOx3, NAD HEENT: Anicteric sclerae, EOMI CV: RRR no mgr nl S1S2 Pulm: CTAB no wcr Abd: +BS soft NT ND no masses or hernias Ext: No edema, 2+ DP pulses Skin: No rashes, warm/dry Neuro: Full strength throughout Labs and rads reviewed A/A-3-vtey-old female with history noted as above, here with bright red blood per rectum. Hemoglobin remained stable she was hemodynamically stable. Can restart Plavix and Xarelto and follow-up with colorectal surgeon as an outpatient Had her planned elective cardiac catheterization while she was here as an inpatient which showed nonobstructive CAD. Coding Level of Care Code 73338 OBS Care - Discharge Diagnoses Acute lower gastrointestinal bleeding K92.2 SVT (supraventricular tachycardia) I47.1 History of pulmonary embolism Z86.711 Hyperthyroidism E05.90 GERD (gastroesophageal reflux disease) K21.9 Esophagitis presence: without esophagitis HTN (hypertension) I10 Hypertension type: essential hypertension Dental infection K04.7 Lichen sclerosus of female genitalia N90.4
== END 2022-01-10 12:26 | disposition home or self-care (01) ==
LOC: 3N 18:21 → ED 18:21 → SUATTDRO 01-09 00:56 → 3N 01-09 01:53 → 2S 01-09 16:25